=== PATIENT | female | born 1945 | race Caucasian/White ===

== ENCOUNTER → 2016-10-25 | Outpatient (CLI) | payer MEDICARE ==
--- NOTE | 2016-10-27 10:03 | MM ---
Reason for exam: screening (asymptomatic). Last mammogram was performed 1 year ago. History: Patient is postmenopausal. Family history of premenopausal breast cancer in mother at age 38. Took estrogen for 2 years beginning at age 56. Physical Findings: A clinical breast exam by your physician is recommended on an annual basis and results should be correlated with mammographic findings. MG 3D Screening Mammo W/Cad Bilateral CC and MLO view(s) were taken. Prior study comparison: September 03, 2014, bilateral MG screening mammo w CAD. August 29, 2013, bilateral MG screening mammo w CAD. There are scattered fibroglandular densities. No significant changes when compared with prior studies. ASSESSMENT: Benign, BI-RAD 2 RECOMMENDATION: Routine screening mammogram of both breasts in 1 year.
== END | disposition home or self-care (01) ==
LOC: RADMAMWWP 08:48
PROVIDERS: ATTEND Family Medicine
DX: Z12.31 Encounter for screening mammogram for malignant neoplasm of breast (principal)
CPT/HCPCS: 77063; G0202

== ENCOUNTER → 2018-03-09 | Outpatient (CLI) | payer MEDICARE ==
--- NOTE | 2018-03-12 07:54 | BD ---
EXAMINATION TYPE: Axial Bone Density DATE OF EXAM: 03/09/2018 COMPARISON: 02/14/2000 bone scan report. CLINICAL HISTORY: Postmenopausal female and osteopenia per order. Height: 62 IN Weight: 148 LBS FRAX RISK QUESTIONS: Family History (Parent hip fracture): YES MOTHER RISK FACTORS HISTORY OF: Surgery to Hip(EVITA): YES When: RT HIP 12/21 LEFT HIP 1999 Active: MINIMAL Postmenopausal woman: AGE 55 Take estrogen and/or progesterone medications: NOT NOW How long: AGE 55 - 56 MEDICATIONS: Thyroid Medications: YES Which medication: Synthroid How Lon + YEARS Osteoporosis Medications: NOT NOW Which medication: Fosamax How Long: APPROX AGE 55 - 63 Additional Medications: CALCIUM, VIT D, SYNTHROID, CHOLESTEROL MEDS, DIABETES MEDS, HIGH BLOOD PRESSU RE MEDS, EXAM MEASUREMENTS: Bone mineral densitometry was performed using the [employer]. Bone mineral density as measured about the Lumbar spine is: ----- L1-L4(G/cm2): 1.842 T Score Values are as follows: ----- L2: 6.3 ----- L3: 6.0 ----- L4: 4.4 ----- L1-L4: 5.5 Bone mineral density has: Increased 43.1% since study of: 02/14/2000 Bone mineral density about the R Wrist (g/cm2): 0.575 T Score values are as follows: -----Dist. R+U: -0.7 -----Prox. R+U: -1.0 -----Radius total: -1.6 Bone mineral density BASELINE IMPRESSION: Osteopenia (T Score between -2.5 and -1) in the right forearm. Bone density felt falsely elevated in the low back due to scoliosis and reactive sclerosis. There is slightly increased risk of fracture and the patient may be considered for treatment. Re-Screen 2-5 years. NOTE: T-SCORE=SD OF THE YOUNG ADULT MEAN.
--- NOTE | 2018-03-15 10:54 | MM ---
Reason for exam: screening (asymptomatic). Last mammogram was performed 1 year and 4 months ago. History: Patient is postmenopausal. Family history of premenopausal breast cancer in mother at age 38. Took estrogen for 2 years beginning at age 56. MG 3D Screening Mammo W/Cad Bilateral CC and MLO view(s) were taken. Prior study comparison: October 25, 2016, bilateral MG 3d screening mammo w/cad. October 13, 2015, bilateral MG 3d screening mammo w/cad. The breast tissue is heterogeneously dense. This may lower the sensitivity of mammography. Developing asymmetry left middle post depth upper outer quadrant. ASSESSMENT: Incomplete: need additional imaging evaluation, BI-RAD 0 RECOMMENDATION: Ultrasound of the left breast.
== END ==
LOC: RADMAMWWP 15:05
PROVIDERS: ATTEND Family Medicine
DX: Z12.31 Encounter for screening mammogram for malignant neoplasm of breast (principal); M85.831 Other specified disorders of bone density and structure, right forearm; N95.1 Menopausal and female climacteric states
CPT/HCPCS: 77063; 77067; 77080

== ENCOUNTER → 2018-03-22 | Outpatient (CLI) | payer MEDICARE ==
--- NOTE | 2018-03-22 14:49 | MM ---
Reason for exam: additional evaluation requested from abnormal screening. Last mammogram was performed less than 1 month ago. History: Patient is postmenopausal. Family history of premenopausal breast cancer in mother at age 38. Took estrogen for 2 years beginning at age 56. Physical Findings: Nurse did not find any significant physical abnormalities on exam. MG 3D Work Up W/Cad RT CC with magnification, LM with magnification, and LM view(s) were taken of the right breast. Prior study comparison: March 09, 2018, bilateral MG 3d screening mammo w/cad. October 25, 2016, bilateral MG 3d screening mammo w/cad. There are scattered fibroglandular densities. There are course heterogeneous right upper outer quadrant calcifications, 5 mm group that are new and a biopsy is recommended. A subtle 4 mm right upper outer quadrant focal asymmetry is noted and an ultrasound will be performed. ASSESSMENT: Incomplete: need additional imaging evaluation, BI-RAD 0 RECOMMENDATION: Ultrasound of the right breast.
--- NOTE | 2018-03-22 14:59 | USB ---
History: Patient is postmenopausal. Family history of premenopausal breast cancer in mother at age 38. Took estrogen for 2 years beginning at age 56. US Breast Workup Limited RT Right limited breast ultrasound including focal area of concern, retroareolar and axilla demonstrates No cystic or solid lesion seen. No suspicious sonographic findings. Right breast calcifications on the mammogram are suspicious and warrant biopsy. These results were verbally communicated with the patient and result sheet given to the patient on 03/22/18. ASSESSMENT: Suspicious, BI-RAD 4 RECOMMENDATION: Stereotactic core biopsy of the right breast. The calcifications seen on the mammogram. Called Dr. Blount with mammographic findings and has scheduled an appointment for the patient for 04/06/18 at 1:[address] Diaz. The right breast stereotactic biopsy is to be done on 04/10/18 at 8:00 am. PRELIMINARY REPORT CALLED AND FAXED TO DR. DIAZ ON 03/22/18.
== END | disposition home or self-care (01) ==
LOC: RADMAMWWP 09:29
PROVIDERS: ATTEND Family Medicine
DX: R92.8 Other abnormal and inconclusive findings on diagnostic imaging of breast (principal)
CPT/HCPCS: 77065; 76642; G0279; 77061

== ENCOUNTER → 2018-04-06 | Outpatient (CLI) | payer MEDICARE ==
[2018-04-06 13:29] VITALS: BP 138/84; PULSE 96; RESP 18; TEMP 97; BMI 25.7
--- NOTE | 2018-04-06 13:37 | P.GSHP ---
History of Present Illness H&P Date: 04/06/18 Chief Complaint: abnormal mammogram right breast Netta is a 73-year-old white female who on a routine mammogram performed on 03/09/2018 was noted to have a 5 mm group of calcifications in the right upper outer quadrant at middle depth breast. There was some focal asymmetry of the right upper outer quadrant as well. Ultrasound of this area did not reveal any cystic or solid lesions of concern and after diagnostic mammogram it was recommended that she undergo a right breast stereotactic core biopsy. The patient does not feel any lumps in her breasts. She has no nipple discharge or skin changes. She has no history of any infection and trauma to the breast. She has not had any breast biopsies or procedures on the breast in the past. Family history: mother: breast cancer at 32, at 82 not of cancer, also had uterine cancer 7 years later sister: lung cancer father: Mesothelioma secondary to asbestos exposure Hormonal history: Menarche:11 : 3, 3 children, breast fed: no, first at 21 menopause: Hysterectomy at 55 for pain but was still having periods /they took her ovaries as well BCP: 5 years hormones: 1 1/2 years Past Surgical History 1. IRINEO 2. gallbladder 3. appy 4. 4 hip replacements one on the left, 1 on the right 5. T&A Medical History: 1. HTN 2. diabetic 3. hypothyroid 4. high cholesterol 5. arthritis Social History: smoke: none alcohol: none drughs: none - Constitutional Constitutional: Reports sweats - EENT Eyes: denies blurred vision, denies pain Ears: bilateral: decreased hearing (wears hearing aids), deny: tinnitus Ears, nose, mouth and throat: Denies headache, Denies sore throat - Breasts Breasts: bilateral: as per HPI - Cardiovascular Cardiovascular: Denies chest pain, Denies shortness of breath - Respiratory Respiratory: Denies cough, Denies 7 - Gastrointestinal Gastrointestinal: Denies abdominal pain, Denies diarrhea, Denies nausea, Denies vomiting - Genitourinary (Female) Genitourinary: Reports kidney stones - Menstruation Menstruation: Reports post hysterectomy - Musculoskeletal Comment: arthritis, worst in her hips - Integumentary Integumentary: Denies pruritus, Denies rash - Neurological Neurological: Denies numbness, Denies weakness - Psychiatric Psychiatric: Reports anxiety, Reports depression - Endocrine Endocrine: Denies fatigue, Denies weight change - Hematologic/Lymphatic Comment: none - Allergic/Immunologic Allergic/Immunologic: Reports seasonal allergies Past Medical History Past Medical History: Diabetes Mellitus, Hypertension, Osteoarthritis (OA) Past Surgical History: Adenoidectomy, Hysterectomy, Joint Replacement Past Psychological History: Anxiety, Depression Medications and Allergies Home Medications Medication Instructions Recorded Confirmed Type Atorvastatin [Lipitor] 20 mg PO HS 03/23/18 04/06/18 History Calcium Carbonate/Vitamin D3 1 each PO DAILY 03/23/18 04/06/18 History [Calcium 500-Vit D3 200 Tablet] Cholecalciferol [Vitamin D3] 1,000 unit PO QAM 03/23/18 04/06/18 History Ferrous Sulfate [Iron] 325 mg PO WEEKLY 03/23/18 04/06/18 History Imipramine [Tofranil] 10 mg PO BID 03/23/18 04/06/18 History Levothyroxine Sodium [Synthroid] 88 mcg PO QAM 03/23/18 04/06/18 History Losartan Potassium [Cozaar] 50 mg PO QAM 03/23/18 04/06/18 History Ranitidine HCl [Zantac] 150 mg PO BID 03/23/18 04/06/18 History Venlafaxine HCl [Effexor] 75 mg PO BID 03/23/18 04/06/18 History metFORMIN HCL 1,000 mg PO HS 03/23/18 04/06/18 History metFORMIN HCL 500 mg PO QAM 03/23/18 04/06/18 History Allergies Allergy/AdvReac Type Severity Reaction Status Date / Time No Known Allergies Allergy Verified 04/06/18 13:03 Surgical - Exam BMI 25.7 - General well developed, well nourished, no distress - Eyes normal ocular movement - ENT no hearing loss, no congestion - Neck no masses, trachea midline - Respiratory normal respiratory effort, clear to auscultation - Cardiovascular Rhythm: regular Heart Sounds: normal: S1, S2 - Abdomen Abdomen: soft, non tender, no guarding, no rigid, no rebound - Integumentary normal turgor - Neurologic no disoriented, no combative - Musculoskeletal normal gait, normal posture - Psychiatric oriented to time, oriented to person, oriented to place, speech is normal, memory intact Breast examination: Right breast: Multi-positional exam no dominant masses or nodules of concern Right axilla: No adenopathy of concern Left breast: Multi-positional exam no dominant masses or nodules of concern Left axilla: No adenopathy of concern Results Mammogram and ultrasound reports reviewed Assessment and Plan Assessment: Impression: 1. Radiographic abnormality right breast, microcalcifications upper outer quadrant region questionable soft tissue area not seen on ultrasound 2. diabetic 3. hypothyroid 4. high cholesterol 5. arthritis 6. HTN Plan: 1. Serotactic core biopsy right breast lesion 2. Medical management of medical conditions Risks and benefits of procedure discussed with the patient and she wishes to proceed. Cc: Dr. Marcos Gardner in [place]
== END ==
LOC: WWCWWP 12:45
PROVIDERS: ATTEND Surgery
DX: Z53.9 Procedure and treatment not carried out, unspecified reason (principal)

== ENCOUNTER → 2018-04-10 | Day surgery (SDC) | payer MEDICARE ==
[2018-04-10 07:30] VITALS: RESP 16; BMI 25.7
[2018-04-10 08:58] VITALS: BP 145/83; PULSE 98; TEMP 98.7
--- NOTE | 2018-04-10 11:20 | P.OP ---
Date of Procedure: 04/10/18 Preoperative Diagnosis: Mammographic abnormality right breast Postoperative Diagnosis: Same Procedure(s) Performed: Right breast stereotactic core biopsy Anesthesia: local Surgeon: Dominique Diaz Estimated Blood Loss (ml): 0 Pathology: other (Breast tissue) Condition: stable Disposition: same day Indications for Procedure: Mammographic abnormality right breast Operative Findings: Microcalcifications in specimen Description of Procedure: Netta is a 73-year-old white female who on a recent mammogram was noted to have an area of microcalcifications in the upper outer quadrant area of the right breast. An ultrasound was performed which did not reveal any lesions and therefore stereotactic core biopsy was recommended. The risk and benefits of the procedure were discussed with the patient and she wished to proceed. The patient was taken to the stereo room and positioned on the lo-rad table. A CC from above approach was utilized. After the lesion was identified a stereo pair was obtained. The lesion was targeted. The cordinants were sent to the lo-rad table. The skin was prepped using Betadine. 1% lidocaine 10 mL with bicarbonate and 10 mL without bicarb was used to anesthetize the area of the skin and breast. A 9-gauge vacuum-assisted rotating core biopsy needle was used to obtain the samples. The needle was driven to the correct coordinates. Pre-fire films were obtained. The needle was then fired and post fire films were obtained. This indicated the needle was in the correct location. 12 core biopsies were obtained. Radiograph of the specimen revealed the microcalcifications of concern had been sampled. A secure marked top marker was placed. Radiograph revealed this was in the correct location. The specimen was sent for pathology. The patient tolerated the procedure in stable condition. The patient will follow with Dr. Murphy next week. If the patient has any questions or concerns she will call Dr. Murphy sooner.
--- NOTE | 2018-04-10 16:45 | MM ---
EXAMINATION TYPE: MG stereo VAD BX RT DATE OF EXAM: 04/10/2018 COMPARISON: Mammogram 03/22/2018 CLINICAL HISTORY: Abnormal mammogram TECHNIQUE: Stereotactic guided core biopsy of right breast. FINDINGS: The procedure was performed by surgery. Targeting was provided for surgery. Multiple images demonstrate biopsy of the targeted calcifications. Post procedure mammogram is obtained. Core marker is at the location of the previous calcifications. Specimen: Mammographic specimen demonstrates calcifications within the specimen. IMPRESSION: 1. Successful stereotactic core biopsy right breast calcifications. Recommendations: 1. Recommendations are pending pathology results. Pathology Results: Benign RIGHT BREAST, STEREOTACTIC CORE BIOPSY: Nodular fat necrosis with calcifications , scar and inflammation. Negative for malignancy. Recommendation Follow up mammogram of the right breast in 6 months. TONGD
== END | disposition home or self-care (01) ==
LOC: RADMAMWWP 07:10
PROVIDERS: ATTEND Surgery
DX: R92.8 Other abnormal and inconclusive findings on diagnostic imaging of breast (principal); N61.0 Mastitis without abscess; N64.1 Fat necrosis of breast; L90.5 Scar conditions and fibrosis of skin
CPT/HCPCS: 88305; 19081; A4648; J2001

== ENCOUNTER → 2018-04-19 | Outpatient (CLI) | payer MEDICARE ==
[2018-04-19 14:04] VITALS: BP 145/82; PULSE 76; RESP 20; TEMP 98.5; BMI 25.7
--- NOTE | 2018-04-19 14:04 | P.PN ---
Subjective Progress Note Date: 04/19/18 Principal diagnosis: Status post right breast stereotactic core biopsy 2519 Netta is a 73-year-old white female status post right breast are detected core biopsy 2519. Pathology revealed nodular fat necrosis with calcifications , scar and inflammation. Negative for malignancy. The patient has no complaints at this time. Objective - Vital Signs Vital signs: Intake & Output 04/18/18 04/19/18 04/19/18 18:59 06:59 18:59 Weight 68.039 kg - Constitutional General appearance: Present: average body habitus - EENT Eyes: Present: EOMI ENT: Present: hearing grossly normal - Neck Neck: Present: normal ROM - Respiratory Respiratory: bilateral: CTA - Cardiovascular Rhythm: regular Heart sounds: normal: S1, S2 - Musculoskeletal Musculoskeletal: Present: gait normal - Psychiatric Psychiatric: Present: A&O x's 3, appropriate affect - Additional findings Additional findings: Breast examination: Right breast : Core biopsy site clean and dry no evidence of any infection Assessment and Plan Assessment: Impression: 1. Pathology results benign from right breast stereotactic core biopsy 2. Area samples felt to be concordant with radiographic abnormality 3. Patient without complaints Plan: 1. Repeat right breast mammogram 6 months time with physician exam at that time 2. If patient has any questions or concerns sooner be happy to see her sooner CC: Brandyn Durand
== END | disposition home or self-care (01) ==
LOC: WWCWWP 13:18
PROVIDERS: ATTEND Surgery
DX: Z53.9 Procedure and treatment not carried out, unspecified reason (principal)

== ENCOUNTER → 2018-09-25 | Outpatient (CLI) | payer MEDICARE ==
--- NOTE | 2018-09-25 14:09 | MM ---
Reason for exam: follow-up at short interval from prior study. Last mammogram was performed 6 months ago. History: Patient is postmenopausal. Family history of premenopausal breast cancer in mother at age 38. Benign MG stereo VAD BX RT of the right breast, April 10, 2018. Took estrogen for 2 years beginning at age 56. Physical Findings: Nurse did not find any significant physical abnormalities on exam. MG 3D Diag Mammo W/Cad RT CC, MLO, and CCRL view(s) were taken of the right breast. Prior study comparison: March 22, 2018, right breast MG 3d work up w/cad RT. March 09, 2018, bilateral MG 3d screening mammo w/cad. There are scattered fibroglandular densities. Biopsy site upper outer quadrant right breast is larger focal asymmetry now, probably evolving scar. Additional 6 month follow up recommended. These results were verbally communicated with the patient and result sheet given to the patient on 09/25/18. ASSESSMENT: Probably benign, BI-RAD 3 RECOMMENDATION: Follow-up diagnostic mammogram of both breasts in 6 months. Back on schedule for March 2019. DOMENICO
== END | disposition home or self-care (01) ==
LOC: RADMAMWWP 12:34
PROVIDERS: ATTEND Surgery
DX: R92.8 Other abnormal and inconclusive findings on diagnostic imaging of breast (principal)
CPT/HCPCS: 77065; G0279; 77061

== ENCOUNTER → 2018-09-28 | Outpatient (CLI) | payer MEDICARE ==
--- NOTE | 2018-09-28 11:11 | P.PN ---
Subjective Progress Note Date: 09/28/18 Netta is a 73-year-old white female who on a routine mammogram performed on 03/09/2018 was noted to have a 5 mm group of calcifications in the right upper outer quadrant at middle depth breast. There was some focal asymmetry of the right upper outer quadrant as well. Ultrasound of this area did not reveal any cystic or solid lesions of concern and after diagnostic mammogram it was recommended that she undergo a right breast stereotactic core biopsy. The patient does not feel any lumps in her breasts. She has no nipple discharge or skin changes. She has no history of any infection and trauma to the breast. She has not had any breast biopsies or procedures on the breast in the past. She underwent a stereotactic core biopsy and 2519. Pathology revealed nodular fat necrosis with calcifications, scarring and inflammation. Negative for malignancy. The patient has not felt anything of concern in her breast since the biopsy. She had her most recent right breast mammogram on [id number]. This revealed biopsy site upper outer quadrant is larger focal asymmetry now, probably involving scar. However, the films were reviewed with Dr. Barcenas and it appears that this is a resolving hematoma. Additional six-month follow-up was recommended. Family history: mother: breast cancer at 32, at 82 not of cancer, also had uterine cancer 7 years later sister: lung cancer father: Mesothelioma secondary to asbestos exposure Hormonal history: Menarche:11 : 3, 3 children, breast fed: no, first at 21 menopause: Hysterectomy at 55 for pain but was still having periods /they took her ovaries as well BCP: 5 years hormones: 1 1/2 years Past Surgical History 1. IRINEO 2. gallbladder 3. appy 4. 4 hip replacements one on the left, 1 on the right 5. T&A Medical History: 1. HTN 2. diabetic 3. hypothyroid 4. high cholesterol 5. arthritis Social History: smoke: none alcohol: none drughs: none - Constitutional Constitutional: Reports sweats - EENT Eyes: denies blurred vision, denies pain Ears: bilateral: decreased hearing (wears hearing aids), deny: tinnitus Ears, nose, mouth and throat: Denies headache, Denies sore throat - Breasts Breasts: bilateral: as per HPI - Cardiovascular Cardiovascular: Denies chest pain, Denies shortness of breath - Respiratory Respiratory: Denies cough, Denies 7 - Gastrointestinal Gastrointestinal: Denies abdominal pain, Denies diarrhea, Denies nausea, Denies vomiting - Genitourinary (Female) Genitourinary: Reports kidney stones - Menstruation Menstruation: Reports post hysterectomy - Musculoskeletal Comment: arthritis, worst in her hips - Integumentary Integumentary: Denies pruritus, Denies rash - Neurological Neurological: Denies numbness, Denies weakness - Psychiatric Psychiatric: Reports anxiety, Reports depression - Endocrine Endocrine: Denies fatigue, Denies weight change - Hematologic/Lymphatic Comment: none - Allergic/Immunologic Allergic/Immunologic: Reports seasonal allergies Objective - Vital Signs Vital signs: Vital Signs Temp 98.4 F 09/28/18 10:54 Pulse 97 09/28/18 10:54 Resp 18 09/28/18 10:54 BP 125/73 09/28/18 10:54 Pulse Ox 98 09/28/18 10:54 Intake & Output 09/27/18 09/28/18 09/28/18 18:59 06:59 18:59 Weight 70.307 kg - Exam BMI 26.6 - Constitutional General appearance: Present: average body habitus - EENT Eyes: Present: EOMI ENT: Present: hearing grossly normal - Neck Neck: Present: normal ROM - Respiratory Respiratory: bilateral: CTA - Cardiovascular Rhythm: regular - Gastrointestinal General gastrointestinal: Present: soft - Integumentary Integumentary: Present: normal turgor - Musculoskeletal Musculoskeletal Comment(s): uses a cane, bilateral hip replacement - Psychiatric Psychiatric: Present: A&O x's 3, appropriate affect, intact judgment & insight - Additional findings Additional findings: Breast examination: Right breast: Multi-positional exam no dominant masses or nodules of concern Right axilla: No adenopathy of concern Left breast: Multiple positional exam no dominant masses or nodules of concern Left axilla: No adenopathy of concern Assessment and Plan Assessment: Impression: 1. HTN 2. diabetic 3. hypothyroid 4. high cholesterol 5. arthritis 6. Fat necrosis and core biopsy of the breast 7. Fibrocystic changes 8. mother breast cancer in her 30's The patient has a family history of mother with breast cancer in her 30s, we've discussed genetic testing however she wishes to just have close surveillance at this time. Plan: 1. Repeat bilateral mammogram in 6 months time with physician exam at that time 2. Probable resolving hematoma at site of stereotactic core biopsy 3. Medical management of medical conditions cc: Dr. Marcos Blount ([place])
== END ==
DX: Z53.9 Procedure and treatment not carried out, unspecified reason (principal)

== ENCOUNTER → 2019-04-01 | Outpatient (CLI) | payer MEDICARE ==
--- NOTE | 2019-04-01 11:39 | MM ---
Reason for exam: follow-up at short interval from prior study. Last mammogram was performed 6 months ago. History: Patient is postmenopausal. Family history of premenopausal breast cancer in mother at age 38. Benign MG stereo VAD BX RT of the right breast, April 10, 2018. Took estrogen for 2 years beginning at age 56. Physical Findings: Nurse did not find any significant physical abnormalities on exam. MG 3D Diag Mammo W/Cad EVITA Bilateral CC and MLO view(s) were taken. Prior study comparison: September 25, 2018, right breast MG 3d diag mammo w/cad RT. March 22, 2018, right breast MG 3d work up w/cad RT. There are scattered fibroglandular densities. Benign appearing bilateral calcifications. No suspicious abnormality. Post biopsy change right upper outer quadrant. No significant new findings when compared with previous films. These results were verbally communicated with the patient and result sheet given to the patient on 04/01/19. ASSESSMENT: Benign, BI-RAD 2 RECOMMENDATION: Routine screening mammogram of both breasts in 1 year.
== END | disposition home or self-care (01) ==
LOC: RADMAMWWP 10:00
PROVIDERS: ATTEND Surgery
DX: R92.8 Other abnormal and inconclusive findings on diagnostic imaging of breast (principal)
CPT/HCPCS: 77066; G0279; 77062

== ENCOUNTER → 2019-04-05 | Outpatient (CLI) | payer MEDICARE ==
[2019-04-05 11:56] VITALS: BP 137/89; PULSE 105; RESP 16; TEMP 98.2
--- NOTE | 2019-04-05 12:19 | P.PN ---
Subjective Progress Note Date: 04/05/19 Principal diagnosis: fat necrosis of the right breast/surveillence Netta is a 73-year-old white female who on a routine mammogram performed on 03/09/2018 was noted to have a 5 mm group of calcifications in the right upper outer quadrant at middle depth breast. There was some focal asymmetry of the right upper outer quadrant as well. Ultrasound of this area did not reveal any cystic or solid lesions of concern and after diagnostic mammogram it was recommended that she undergo a right breast stereotactic core biopsy. The patient does not feel any lumps in her breasts. She has no nipple discharge or skin changes. She has no history of any infection and trauma to the breast. She has not had any breast biopsies or procedures on the breast in the past. She underwent a stereotactic core biopsy on 429. Pathology revealed nodular fat necrosis with calcifications, scarring and inflammation. Negative for malignancy. The patient had not felt anything of concern in her breast[place] [address]. This revealed biopsy site upper outer quadrant with a focal asymmetry, probably involving scar. The films were reviewed with Dr. Barcenas and it appeared that this was a resolving hematoma. Additional six-month follow-up was recommended. [place] [address] this was 3-D. No suspicious abnormalities were noted. Post biopsy changes in the right upper outer quadrant were identified. This was felt to be benign BIRADS 2 and repeat bilateral mammogram in 1 year is recommended. She has no complaints related to her breast at this time. No lumps masses or nodules in her breast of concern. Family history: mother: breast cancer at 32, at 82 not of cancer, also had uterine cancer 7 years later sister: lung cancer father: Mesothelioma secondary to asbestos exposure Hormonal history: Menarche:11 : 3, 3 children, breast fed: no, first at 21 menopause: Hysterectomy at 55 for pain but was still having periods /they took her ovaries as well BCP: 5 years hormones: 1 1/2 years Past Surgical History 1. IRINEO 2. gallbladder 3. appy 4. 4 hip replacements one on the left, 1 on the right 5. T&A 6. bilateral cataract surgery Medical History: 1. HTN 2. diabetic 3. hypothyroid 4. high cholesterol 5. arthritis Social History: smoke: none alcohol: none drugs: none - Constitutional Constitutional: Reports sweats - EENT Eyes: denies blurred vision, denies pain Ears: bilateral: decreased hearing (wears hearing aids), deny: tinnitus Ears, nose, mouth and throat: Denies headache, Denies sore throat - Breasts Breasts: bilateral: as per HPI - Cardiovascular Cardiovascular: Denies chest pain, Denies shortness of breath - Respiratory Respiratory: Denies cough - Gastrointestinal Gastrointestinal: Denies abdominal pain, Denies diarrhea, Denies nausea, Denies vomiting - Genitourinary (Female) Genitourinary: Reports kidney stones 10 years ago - Menstruation Menstruation: Reports post hysterectomy - Musculoskeletal Comment: arthritis, worst in her hips - Integumentary Integumentary: Denies pruritus, Denies rash - Neurological Neurological: Denies numbness, Denies weakness - Psychiatric Psychiatric: Reports anxiet - Endocrine Endocrine: Denies fatigue, Denies weight change - Hematologic/Lymphatic Comment: none - Allergic/Immunologic Objective - Vital Signs Vital signs: Vital Signs Temp 98.2 F 04/05/19 11:54 Pulse 105 H 04/05/19 11:54 Resp 16 04/05/19 11:54 BP 137/89 04/05/19 11:54 Pulse Ox 97 04/05/19 11:54 Intake & Output 04/04/19 04/05/19 04/05/19 18:59 06:59 18:59 Weight 70.307 kg - Exam BMI 26.6 - Constitutional General appearance: Present: average body habitus - EENT Eyes: Present: EOMI ENT: Present: hearing grossly normal - Neck Details: no adenopathy Neck: Present: normal ROM - Respiratory Respiratory: bilateral: CTA - Cardiovascular Rhythm: regular Heart sounds: normal: S1, S2 - Gastrointestinal Gastrointestinal Comment(s): no guarding or rebound General gastrointestinal: Present: normal bowel sounds, soft - Integumentary Integumentary: Present: normal turgor - Musculoskeletal Musculoskeletal: Present: gait normal - Psychiatric Psychiatric: Present: A&O x's 3, appropriate affect, intact judgment & insight - Additional findings Additional findings: breast exam: BRA 40C ptosis grade 3 inspection: no skin changes of concern right breast larger than left breast no nipple inversion Palpation: Right breast: Multi-positional exam no dominant masses or nodules of concern, fibrocystic changes, right breast larger than left breast Right axilla: No adenopathy of concern Left breast: Multi-positional exam no dominant masses or nodules of concern, fibrocystic changes, Left axilla: No adenopathy of concern Assessment and Plan Assessment: Impression: 1. Fibrocystic breast changes 2. Asymmetry of the breast 3. Hypertension 4. Diabetes 5. Arthritis Plan: 1. Repeat bilateral mammogram and physician exam in 1 year 2. Patient to call sooner if any questions of concern Cc: Dr. Blount encounter 15 minutes, > 50% of time in planning and counselling Time with Patient: Less than 30
== END | disposition home or self-care (01) ==
LOC: WWCWWP 11:18
PROVIDERS: ATTEND Surgery
DX: Z53.9 Procedure and treatment not carried out, unspecified reason (principal)

== ENCOUNTER → 2020-04-03 | Outpatient (CLI) | payer MEDICARE ==
--- NOTE | 2020-04-03 13:43 | MM ---
Reason for exam: screening (asymptomatic). Last mammogram was performed 1 year ago. History: Patient is postmenopausal. Family history of premenopausal breast cancer in mother at age 38. Benign MG stereo VAD BX RT of the right breast, April 10, 2018. Took estrogen for 2 years beginning at age 56. Physical Findings: A clinical breast exam by your physician is recommended on an annual basis and results should be correlated with mammographic findings. MG 3D Screening Mammo W/Cad Bilateral CC and MLO view(s) were taken. Prior study comparison: April 01, 2019, bilateral MG 3d diag mammo w/cad [facility]. September 25, 2018, right breast MG 3d diag mammo w/cad RT. There are scattered fibroglandular densities. Finding #1: There is a 10 mm irregular mass in the posterior, middle position of the right breast at clip on CC image only. Finding #2: There are typically benign round calcifications in both breasts. Previous mammotome biopsy in the right breast. There is a chronic nodularity in the left breast. New finding, increase in size, and more defined since April 01, 2019 and September 25, 2018. ASSESSMENT: Incomplete: need additional imaging evaluation, BI-RAD 0 RECOMMENDATION: Ultrasound of the right breast. [facility] will attempt to contact patient to return for ultrasound.
== END | disposition home or self-care (01) ==
LOC: RADMAMWWP 10:08
PROVIDERS: ATTEND Surgery
DX: Z12.31 Encounter for screening mammogram for malignant neoplasm of breast (principal)
CPT/HCPCS: 77063; 77067

== ENCOUNTER → 2020-04-09 | Outpatient (CLI) | payer MEDICARE ==
[2020-04-09 11:14] VITALS: BP 166/94; PULSE 108; RESP 20; TEMP 98.5
--- NOTE | 2020-04-09 11:16 | P.PN ---
Subjective Progress Note Date: 04/09/20 Principal diagnosis: abnormal right breast mammogram fat necrosis of the right breast/surveillence Netta is a 75-year-old white female who on a routine mammogram performed on 03/09/2018 was noted to have a 5 mm group of calcifications in the right upper outer quadrant at middle depth breast. There was some focal asymmetry of the right upper outer quadrant as well. Ultrasound of this area did not reveal any cystic or solid lesions of concern and after diagnostic mammogram it was recommended that she undergo a right breast stereotactic core biopsy. The patient did not feel any lumps in her breasts. She had no nipple discharge or skin changes. She had no history of any infection or trauma to the breast. She had not had any breast biopsies or procedures on the breast in the past. She underwent a stereotactic core biopsy on 432. Pathology revealed nodular fat necrosis with calcifications, scarring and inflammation. Negative for malignancy. The patient had not felt anything of concern in her breast. [place] [address]. This revealed biopsy site upper outer quadrant with a focal asymmetry, probably involving scar. The films were reviewed with Dr. Barcenas and it appeared that this was a resolving hematoma. Additional six-month follow-up was recommended. [place] [address] this was 3-D. No suspicious abnormalities were noted. Post biopsy changes in the right upper outer quadrant were identified. This was felt to be benign BIRADS 2 and repeat bilateral mammogram in 1 year is recommended. She has no complaints related to her breast at this time. No lumps masses or nodules in her breast of concern. The patient at this time denies any lumps masses or nodules in her breast. She is not complaining of any pain in her breast. She does not complain of any nipple discharge or skin changes. She had a bilateral 3-D mammogram performed on [id number]. This revealed a 10 mm irregular mass in the posterior middle position of the right breast at the clip additionally there are benign round calcifications in both breasts and chronic nodularity in the left breast. A new finding was increase in size and more defined area in the right breast of the lesion as stated since March 2019. Ultrasound of the right breast was recommended. This appears to be an area of prior hematoma. Family history: mother: breast cancer at 32, at 82 not of cancer, also had uterine cancer 7 years later sister: lung cancer father: Mesothelioma secondary to asbestos exposure Hormonal history: Menarche:11 : 3, 3 children, breast fed: no, first at 21 menopause: Hysterectomy at 55 for pain but was still having periods /they took her ovaries as well BCP: 5 years hormones: 1 1/2 years Past Surgical History 1. IRINEO 2. gallbladder 3. appy 4. 4 hip replacements one on the left, 1 on the right 5. T&A 6. bilateral cataract surgery Medical History: 1. HTN 2. diabetic 3. hypothyroid 4. high cholesterol 5. arthritis Social History: smoke: none alcohol: none drugs: none - Constitutional Constitutional: Reports sweats - EENT Eyes: denies blurred vision, denies pain Ears: bilateral: decreased hearing (wears hearing aids), deny: tinnitus Ears, nose, mouth and throat: Denies headache, Denies sore throat - Breasts Breasts: bilateral: as per HPI - Cardiovascular Cardiovascular: Denies chest pain, Denies shortness of breath - Respiratory Respiratory: Denies cough - Gastrointestinal Gastrointestinal: Denies abdominal pain, Denies diarrhea, Denies nausea, Denies vomiting - Genitourinary (Female) Genitourinary: Reports kidney stones 10 years ago - Menstruation Menstruation: Reports post hysterectomy - Musculoskeletal Comment: arthritis, worst in her hips - Integumentary Integumentary: Denies pruritus, Denies rash - Neurological Neurological: Denies numbness, Denies weakness - Psychiatric Psychiatric: Reports anxiet - Endocrine Endocrine: Denies fatigue, Denies weight change - Hematologic/Lymphatic Comment: none - Allergic/Immunologic: seasonal allergies Objective - Exam BMI 42C - Constitutional General appearance: Present: average body habitus - EENT Eyes: Present: EOMI ENT: Present: hearing grossly normal - Neck Neck: Present: normal ROM - Respiratory Respiratory: bilateral: CTA - Cardiovascular Rhythm: regular Heart sounds: normal: S1, S2 - Gastrointestinal General gastrointestinal: Present: normal bowel sounds, soft - Integumentary Integumentary: Present: normal turgor - Musculoskeletal Musculoskeletal Comment(s): uses a cane to walk, hip replacement 3 years ago - Psychiatric Psychiatric: Present: A&O x's 3, appropriate affect, intact judgment & insight - Additional findings Additional findings: breast exam: BRA: 42C inspection: bilateral grade 3 ptosis Palpation: Breasts: Slightly larger than left breast, multiple positional exam fibrocystic changes no dominant masses or nodules of concern Right axilla: No adenopathy of concern Left breast: Multiple positional exam fibrocystic changes, no dominant masses or nodules of concern Left axilla: No adenopathy of concern Assessment and Plan Assessment: Impression: 1. HTN 2. diabetic 3. hypothyroid 4. high cholesterol 5. arthritis 6. Fibrocystic breast changes 7. Prior right breast biopsy benign/questionable hematoma at change at the site ultrasound recommended Plan: 1. Ultrasound right breast depending on results of this further recommendation to follow up 2. Follow-up after completion of workup with the ultrasound in the right at this time; there is no palpable change in the right breast if the radiographic studies are negative would do a repeat mammogram and ultrasound in 6 months with physician exam at that time 3. If a biopsy is recommended patient will see us after results of the biopsy Cc: encounter 15 minutes, time spent in reviewing medical records, physical examination, and counseling
== END | disposition home or self-care (01) ==
LOC: WWCWWP 10:37
PROVIDERS: ATTEND Surgery
DX: Z53.9 Procedure and treatment not carried out, unspecified reason (principal)

== ENCOUNTER → 2020-04-09 | Outpatient (CLI) | payer MEDICARE ==
--- NOTE | 2020-04-10 10:43 | USB ---
Reason for exam: additional evaluation requested from abnormal screening. History: Patient is postmenopausal. Family history of premenopausal breast cancer in mother at age 38. Benign MG stereo VAD BX RT of the right breast, April 10, 2018. Took estrogen for 2 years beginning at age 56. Physical Findings: Nurse did not find any significant physical abnormalities on exam. US Breast Workup Limited RT Right limited breast ultrasound including focal area of concern, retroareolar and axilla demonstrates a 1.1 x 0.7 x 0.9cm irregular, solid lesion at 12 o'clock. These results were verbally communicated with the patient and result sheet given to the patient on 04/09/20. ASSESSMENT: Suspicious, BI-RAD 4 RECOMMENDATION: Surgical consultation and ultrasound core biopsy of the right breast. (12 o'clock positioned) Called office with mammographic findings and has scheduled an appointment for the patient for 05/01/20 at 3:[address] Diaz. Biopsy scheduled for 04/24/20 at 10:30. PRELIMINARY REPORT CALLED AND FAXED TO DR. DIAZ ON 04/10/20.
== END | disposition home or self-care (01) ==
LOC: RADUSWWP 11:18
PROVIDERS: ATTEND Surgery
DX: R92.8 Other abnormal and inconclusive findings on diagnostic imaging of breast (principal)

== ENCOUNTER → 2020-04-24 | Day surgery (SDC) | payer MEDICARE ==
[2020-04-24 10:45] VITALS: RESP 16
[2020-04-24 11:45] VITALS: BP 160/101; PULSE 96; TEMP 98.3
--- NOTE | 2020-04-24 12:23 | USB ---
EXAMINATION TYPE: US biopsy breast VAD RT DATE OF EXAM: 04/24/2020 CLINICAL HISTORY: R92.8 Abnormal Mammogram. Abnormal ultrasound TECHNIQUE: Ultrasound guided vaccuum assisted core biopsy of right breast. COMPARISON: NONE FINDINGS: The ultrasound guided core biopsy procedure was explained to the patient. The risks, benefits, alternatives were discussed. An informed consent was then obtained. Timeout was performed. The patient was placed in supine positioning for imaging and for the procedure. The overlying skin was prepped with betadine and sterilely draped in usual sterile fashion. Lidocaine 1% was used as anesthetic into the skin and deeper breast tissue up to area of concern in the breast. A small skin shira was made with surgical scalpel. Under ultrasound guidance, a 12-gauge vacuum assisted biopsy device was used to obtain 6 core samples. A biopsy clip was left in lesion. Wing clip was utilized. This appears to be just distal to the biopsy site on ultrasound placement and subsequent mammogram. During placement of the surgical clip a small hematoma may have been evolving. Good hemostasis was obtained with direct pressure. Significant hematoma on the post procedure mammogram is not evident. Discharge instructions were discussed with the patient. The patient will follow up with the referring physician for results. Postprocedure mammogram: The patient was transferred to mammography for physician ordered post procedure mammogram for clip placement verification. The patient tolerated the procedure well. The patient was discharged to home in stable condition. IMPRESSION: 1. Successful ultrasound guided biopsy right breast. Recommendations: 1. Recommendations are pending pathology results Pathology Results: Benign RIGHT BREAST, 12:00 POSITION, CORE BIOPSY: Benign breast tissue with hemorrhage and collagenous fibrosis. Recommendation Follow up mammogram of the right breast in 6 months. DOMENICO
--- NOTE | 2020-04-24 13:48 | MM ---
Reason for exam: additional evaluation requested from abnormal screening. Last mammogram was performed 1 month ago. History: Patient is postmenopausal. Family history of premenopausal breast cancer in mother at age 38. Benign MG stereo VAD BX RT of the right breast, April 10, 2018. Took estrogen for 2 years beginning at age 56. MG Diagnostic Mammo RT Wo CAD CC and LM view(s) were taken of the right breast. Prior study comparison: April 03, 2020, bilateral MG 3d screening mammo w/cad. April 01, 2019, bilateral MG 3d diag mammo w/cad [facility]. ASSESSMENT: Post procedure mammogram for marker placement RECOMMENDATION: Ultrasound of the right breast in 6 months. Manage patient on a clinical basis.
== END ==
LOC: RADUSWWP 09:36
PROVIDERS: ATTEND Surgery
DX: N60.31 Fibrosclerosis of right breast (principal); N64.59 Other signs and symptoms in breast
CPT/HCPCS: 88305; 77065; 19083; A4648; J2001

== ENCOUNTER → 2020-05-01 | Outpatient (CLI) | payer MEDICARE ==
--- NOTE | 2020-05-01 16:03 | P.PN ---
Subjective Progress Note Date: 05/01/20 Principal diagnosis: Core biopsy results right breast/hemorrhage/collagenous fibrosis/benign breast tissue Netta is a 75 -year-old white female who underwent an ultrasound-guided core biopsy on . Pathology revealed benign breast tissue with hemorrhage and collagenous fibrosis. The patient had undergone a right breast mammogram postprocedure for marker placement. The marker appeared to be at the site of previous stereo biopsy. The pathology is felt to be benign and concordant with changes related to the prior stereo biopsy. The prior stereo biopsy was done on 2518. Pathology revealed nodular fat necrosis with calcifications, scarring, and inflammation. It was negative for malignancy. The patient tolerated the ultrasound core biopsy with no difficulty. The pathology on the ultrasound core biopsy is felt to be benign and concordant in view of the fact that this appears to be at the site of the prior stereo biopsy. Family history: Mother: Breast cancer in her 30s father: Mesothelioma Physical examination: Lungs: Clear Heart: Regular rate and rhythm Right breast biopsy site clean and dry, mild ecchymosis, small hematoma Impression: 1. Ultrasound abnormality status post core biopsy which is benign and felt to be concordant in view of the fact that this appears to be at the site of prior stereo biopsy. This was reviewed with radiology. Plan: 1. Repeat right breast mammogram and ultrasound in 6 months Cc: Dr. Blount encounter 15 minutes, time spent in reviewing radiographic with radiology, physical examination, and counseling. Objective - Vital Signs Vital signs: Vital Signs Temp 98.1 F 05/01/20 15:29 Pulse 104 H 05/01/20 15:29 Resp 18 05/01/20 15:29 BP 166/93 05/01/20 15:29 Pulse Ox 97 05/01/20 15:29 Intake & Output 04/30/20 05/01/20 05/01/20 18:59 06:59 18:59 Weight 71.214 kg
== END | disposition home or self-care (01) ==
DX: R92.8 Other abnormal and inconclusive findings on diagnostic imaging of breast (principal)

== ENCOUNTER → 2020-10-26 | Outpatient (CLI) | payer MEDICARE ==
--- NOTE | 2020-10-27 07:56 | MM ---
Reason for exam: follow-up at short interval from prior study. Last mammogram was performed 6 months ago. History: Patient is postmenopausal. Family history of premenopausal breast cancer in mother at age 38. Benign US biopsy breast VAD RT of the right breast, April 24, 2020. Benign MG stereo VAD BX RT of the right breast, April 10, 2018. Took estrogen for 2 years beginning at age 56. Physical Findings: Nurse did not find any significant physical abnormalities on exam. MG 3D Diag Mammo W/Cad RT CC and MLO view(s) were taken of the right breast. Prior study comparison: April 24, 2020, right breast MG diagnostic mammo RT wo CAD. April 03, 2020, bilateral MG 3d screening mammo w/cad. The breast tissue is heterogeneously dense. This may lower the sensitivity of mammography. Stable density upper outer quadrant right breast which has been sampled previously. These results were verbally communicated with the patient and result sheet given to the patient on 10/26/20. ASSESSMENT: Incomplete: need additional imaging evaluation, BI-RAD 0 RECOMMENDATION: Ultrasound of the right breast.
--- NOTE | 2020-10-27 07:58 | USB ---
Reason for exam: additional evaluation requested from abnormal screening. History: Patient is postmenopausal. Family history of premenopausal breast cancer in mother at age 38. Benign US biopsy breast VAD RT of the right breast, April 24, 2020. Benign MG stereo VAD BX RT of the right breast, April 10, 2018. Took estrogen for 2 years beginning at age 56. US Breast Limited RT Right limited breast ultrasound including focal area of concern, retroareolar and axilla demonstrates a 7 x 4 x 4mm hypoechoic lesion at 12 o'clock, area has been previously sampled. These results were verbally communicated with the patient and result sheet given to the patient on 10/26/20. ASSESSMENT: Probably benign, BI-RAD 3 RECOMMENDATION: Follow-up diagnostic mammogram of both breasts in 6 months. Ultrasound of the right breast in 6 months.
== END | disposition home or self-care (01) ==
LOC: RADMAMWWP 13:38
PROVIDERS: ATTEND Surgery
DX: R92.2 Inconclusive mammogram (principal); Z78.0 Asymptomatic menopausal state; Z80.3 Family history of malignant neoplasm of breast; N64.89 Other specified disorders of breast
CPT/HCPCS: 77065; 76642; G0279; 77061

== ENCOUNTER → 2020-10-30 | Outpatient (CLI) | payer MEDICARE ==
[2020-10-30 10:42] VITALS: BP 131/78; PULSE 62; RESP 16; TEMP 98.3
--- NOTE | 2020-10-30 11:27 | P.PN ---
Subjective Progress Note Date: 10/30/20 Principal diagnosis: mammographic change right breast/ biopsy 6 months ago Netta is a 75-year-old white female status post ultrasound and stereotactic core biopsy of the right breast in the past. Both of these have been benign. The most recent biopsy was in ultrasound-guided core biopsy of the right breast and 12113. Pathology revealed benign breast tissue with hemorrhage and collagenous fibrosis. This was felt to be benign and concordant. Her last bilateral mammogram was on 120 921 no lesions of concern were noted in the left breast. Ultrasound of the right breast was performed which led to the core biopsy. She comes today for repeat 6 month mammogram and ultrasound of the right breast. This was performed in a2321. On the mammogram is stable density in the upper-outer quadrant which had seen previously been sampled was noted. An ultrasound was recommended. The ultrasound was felt to be probably benign, BIRADS 3. Follow-up diagnostic mammogram of both breasts in 6 months with an ultrasound of the right breast was recommended. The patient does not feel any new lumps masses or nodules of concern in either breast. Family history: mother: breast cancer at 32, at 82 not of cancer, also had uterine cancer 7 years later sister: lung cancer father: Mesothelioma secondary to asbestos exposure Hormonal history: Menarche:11 : 3, 3 children, breast fed: no, first at 21 menopause: Hysterectomy at 55 for pain but was still having periods /they took her ovaries as well BCP: 5 years hormones: 1 1/2 years Past Surgical History 1. IRINEO 2. gallbladder 3. appy 4. 4 hip replacements one on the left, 1 on the right 5. T&A 6. core biopsy of hte right breast Medical History: 1. HTN 2. diabetic 3. hypothyroid 4. high cholesterol 5. arthritis Social History: smoke: none alcohol: none drughs: none - Constitutional Constitutional: Reports sweats - EENT Eyes: denies blurred vision, denies pain Ears: bilateral: decreased hearing (wears hearing aids), deny: tinnitus Ears, nose, mouth and throat: Denies headache, Denies sore throat - Breasts Breasts: bilateral: as per HPI - Cardiovascular Cardiovascular: Denies chest pain, Denies shortness of breath - Respiratory Respiratory: Denies cough - Gastrointestinal Gastrointestinal: Denies abdominal pain, Denies diarrhea, Denies nausea, Denies vomiting - Genitourinary (Female) Genitourinary: Reports kidney stones - Menstruation Menstruation: Reports post hysterectomy - Musculoskeletal Comment: arthritis, worst in her hips; torn tendon in her left shoulder - Integumentary Integumentary: Denies pruritus, Denies rash - Neurological Neurological: Denies numbness, Denies weakness - Psychiatric Psychiatric: Reports anxiety, Reports depression - Endocrine Endocrine: Denies fatigue, Denies weight change - Hematologic/Lymphatic Comment: none - Allergic/Immunologic Allergic/Immunologic: Reports seasonal allergies Objective - Vital Signs Vital signs: Vital Signs Temp 98.3 F 10/30/20 10:39 Pulse 62 10/30/20 10:39 Resp 16 10/30/20 10:39 BP 131/78 10/30/20 10:39 Pulse Ox 95 10/30/20 10:39 Intake & Output 10/29/20 10/30/20 10/30/20 18:59 06:59 18:59 Weight 72.575 kg - Constitutional General appearance: Present: cooperative - EENT Eyes: Present: EOMI ENT: Present: hearing grossly normal - Neck Neck: Present: normal ROM - Respiratory Respiratory: bilateral: CTA - Cardiovascular Rhythm: regular Heart sounds: normal: S1, S2 - Gastrointestinal General gastrointestinal: Present: soft - Integumentary Integumentary: Present: normal turgor - Musculoskeletal Musculoskeletal Comment(s): uses a cane - Psychiatric Psychiatric: Present: A&O x's 3, appropriate affect, intact judgment & insight - Additional findings Additional findings: Breast Exam: BRA: 42C inspection: Right breast slightly larger than left breast Palpation: Right breast: Multi-positional exam fibrocystic changes, no dominant masses or nodules of concern Right axilla: No adenopathy of concern Left breast: Multi-positional exam fibrocystic changes no dominant masses or nodules of concern Left axilla: No adenopathy of concern Assessment and Plan Assessment: Impression: 1. Fibrocystic breast changes 2. Probably benign BIRADS 3 right breast changes patient status post right breast core biopsy 3. Hypertension 4. Diabetes 5. Family history of breast cancer 6. high cholesterol 7. arthritis Plan: 1. Repeat bilateral mammogram in 6 months with a right breast ultrasound as well 2. Follow-up at that time CC: Dr. Lord
== END ==
LOC: WWCWWP 10:26
PROVIDERS: ATTEND Surgery
DX: N60.11 Diffuse cystic mastopathy of right breast (principal); N60.12 Diffuse cystic mastopathy of left breast; E03.9 Hypothyroidism, unspecified; E11.9 Type 2 diabetes mellitus without complications; E78.00 Pure hypercholesterolemia, unspecified; I10 Essential (primary) hypertension; Z80.3 Family history of malignant neoplasm of breast; M19.90 Unspecified osteoarthritis, unspecified site; Z79.84 Long term (current) use of oral hypoglycemic drugs; Z79.899 Other long term (current) drug therapy

== ENCOUNTER → 2021-05-06 | Outpatient (CLI) | payer MEDICARE ==
--- NOTE | 2021-05-07 09:39 | MM ---
Reason for exam: additional evaluation requested from prior study. Last mammogram was performed 6 months ago. History: Patient is postmenopausal. Family history of premenopausal breast cancer in mother at age 38. Benign US biopsy breast VAD RT of the right breast, April 24, 2020. Benign MG stereo VAD BX RT of the right breast, April 10, 2018. Took estrogen for 2 years beginning at age 56. Physical Findings: A clinical breast exam by your physician is recommended on an annual basis and results should be correlated with mammographic findings. MG 3D Diag Mammo W/Cad EVITA Bilateral CC and MLO view(s) were taken. XCCL view(s) were taken of the left breast. Prior study comparison: October 26, 2020, right breast MG 3d diag mammo w/cad RT. April 24, 2020, right breast MG diagnostic mammo RT wo CAD. Previous mammotome biopsy in the right breast x 2. No significant new findings when compared with previous films. These results were verbally communicated with the patient and result sheet given to the patient on 05/06/21. ASSESSMENT: Benign, BI-RAD 2 RECOMMENDATION: Follow-up diagnostic mammogram of both breasts in 1 year.
--- NOTE | 2021-05-07 09:42 | USB ---
Reason for exam: follow-up at short interval from prior study. History: Patient is postmenopausal. Family history of premenopausal breast cancer in mother at age 38. Benign US biopsy breast VAD RT of the right breast, April 24, 2020. Benign MG stereo VAD BX RT of the right breast, April 10, 2018. Took estrogen for 2 years beginning at age 56. US Breast Limited RT Right limited breast ultrasound including focal area of concern, retroareolar and axilla demonstrates a 0.4 x 0.5 x 0.3cm lesion at 12 o'clock, prior measurement 7 x 4 x 4mm, continued taller than wide, no growth. These results were verbally communicated with the patient and result sheet given to the patient on 05/06/21. ASSESSMENT: Probably benign, BI-RAD 3 RECOMMENDATION: Ultrasound of the right breast in 6 months. Follow-up diagnostic mammogram of both breasts in 1 year.
== END | disposition home or self-care (01) ==
LOC: RADMAMWWP 13:39
PROVIDERS: ATTEND Surgery
DX: R92.8 Other abnormal and inconclusive findings on diagnostic imaging of breast (principal); Z78.0 Asymptomatic menopausal state; Z80.3 Family history of malignant neoplasm of breast
CPT/HCPCS: 77066; 76642; G0279; 77062

== ENCOUNTER → 2021-06-04 | Outpatient (CLI) | payer MEDICARE ==
[2021-06-04 15:13] VITALS: BP 160/93; PULSE 108; RESP 16; TEMP 98.6
--- NOTE | 2021-06-04 15:37 | P.PN ---
Subjective Progress Note Date: 06/04/21 Principal diagnosis: Radiographic abnormality right breast mammographic change right breast/ biopsy 6 months ago Netta is a 75-year-old white female status post ultrasound and stereotactic core biopsy of the right breast in the past. Both of these have been benign. The most recent biopsy was in ultrasound-guided core biopsy of the right breast and . Pathology revealed benign breast tissue with hemorrhage and collagenous fibrosis. This was felt to be benign and concordant. Her last bilateral mammogram was on 120 921 no lesions of concern were noted in the left breast. Ultrasound of the right breast was performed which led to the core biopsy. She comes today for repeat 6 month mammogram and ultrasound of the right breast. This was performed in a2321. On the mammogram is stable density in the upper-outer quadrant which had seen previously been sampled was noted. An ultrasound was recommended. The ultrasound was felt to be probably benign, BIRADS 3. Follow-up diagnostic mammogram of both breasts in 6 months with an ultrasound of the right breast was recommended. The patient does not feel any new lumps masses or nodules of concern in either breast. 06-04-21 Netta had a bilateral mammogram performed on 3322 this was felt to be benign BIRADS 2. She also underwent a right breast ultrasound which revealed a 0.4 x 0.5 cm lesion at 12:00 which was tolerated than wide. The patient is not complaining of any lumps masses or nodules of concern in her breasts. Family history: mother: breast cancer at 32, at 82 not of cancer, also had uterine cancer 7 years later sister: lung cancer father: Mesothelioma secondary to asbestos exposure Hormonal history: Menarche:11 : 3, 3 children, breast fed: no, first at 21 menopause: Hysterectomy at 55 for pain but was still having periods /they took her ovaries as well BCP: 5 years hormones: 1 1/2 years Past Surgical History 1. IRINEO 2. gallbladder 3. appy 4. 4 hip replacements one on the left, 1 on the right 5. T&A 6. core biopsy of hte right breast Medical History: 1. HTN 2. diabetic 3. hypothyroid 4. high cholesterol 5. arthritis Social History: smoke: none alcohol: none drughs: none - Constitutional Constitutional: Reports sweats - EENT Eyes: denies blurred vision, denies pain Ears: bilateral: decreased hearing (wears hearing aids), deny: tinnitus Ears, nose, mouth and throat: Denies headache, Denies sore throat - Breasts Breasts: bilateral: as per HPI - Cardiovascular Cardiovascular: Denies chest pain, Denies shortness of breath - Respiratory Respiratory: Denies cough - Gastrointestinal Gastrointestinal: Denies abdominal pain, Denies diarrhea, Denies nausea, Denies vomiting - Genitourinary (Female) Genitourinary: Reports kidney stones - Menstruation Menstruation: Reports post hysterectomy - Musculoskeletal Comment: arthritis, worst in her hips; torn tendon in her left shoulder - Integumentary Integumentary: Denies pruritus, Denies rash - Neurological Neurological: Denies numbness, Denies weakness - Psychiatric Psychiatric: Reports anxiety, Reports depression - Endocrine Endocrine: Denies fatigue, Denies weight change - Hematologic/Lymphatic Comment: none - Allergic/Immunologic Allergic/Immunologic: Reports seasonal allergies Objective - Vital Signs Vital signs: Vital Signs Temp 98.6 F 06/04/21 15:10 Pulse 108 H 06/04/21 15:10 Resp 16 06/04/21 15:10 BP 160/93 06/04/21 15:10 Pulse Ox 97 06/04/21 15:10 Intake & Output 06/03/21 06/04/21 06/04/21 18:59 06:59 18:59 Weight 69.853 kg - Exam BMI 26.4 - Constitutional General appearance: Present: cooperative - EENT ENT: Present: hearing grossly normal - Neck Neck: Present: normal ROM - Respiratory Respiratory: bilateral: CTA - Cardiovascular Heart sounds: normal: S1, S2 - Integumentary Integumentary Comment(s): normal turgor - Musculoskeletal Musculoskeletal Comment(s): uses a cane - Psychiatric Psychiatric: Present: A&O x's 3, appropriate affect, intact judgment & insight - Additional findings Additional findings: Breast Exam: BRA: 42C inspection: Bilateral grade 3 ptosis Palpation: Right breast: Multi-positional exam fibrocystic changes no dominant masses or nodules of concern Right axilla: No adenopathy of concern Left breast: Multi-positional exam fibrocystic changes no dominant masses or nodules of concern Left axilla: No adenopathy of concern Assessment and Plan Assessment: Impression: Radiographic abnormality right breast this was reviewed in detail with Dr. Cantrell the lesion is seen on ultrasound as tolerated and wide 1. HTN 2. diabetic 3. hypothyroid 4. high cholesterol 5. arthritis Plan: I discussed with the patient the ultrasound finding in the right breast. She is in agreement that she would like to have an answer for this. We would therefore recommend ultrasound-guided core biopsy of the tolerated and wide lesion in the right breast. Patient understands risks and benefits and wishes to proceed CC: Dr. Ashraf
== END ==
LOC: WWCWWP 14:30
PROVIDERS: ATTEND Surgery
DX: R92.8 Other abnormal and inconclusive findings on diagnostic imaging of breast (principal); I10 Essential (primary) hypertension; E11.9 Type 2 diabetes mellitus without complications; E03.9 Hypothyroidism, unspecified; E78.00 Pure hypercholesterolemia, unspecified; M19.90 Unspecified osteoarthritis, unspecified site

== ENCOUNTER → 2021-06-24 | Day surgery (SDC) | payer MEDICARE ==
--- NOTE | 2021-06-24 10:57 | P.PN ---
Progress Note - Text Progress Note Date: 06/24/21 Procedure ultrasound core biopsy cancelled today by radiology, Dr. Sousa. Will recommend repeat ultrasound in 6 months with visit at that time.
--- NOTE | 2021-06-24 11:27 | USB ---
Discontinued ultrasound guided right breast biopsy HISTORY: Abnormal ultrasound Correlation to prior right breast ultrasound 04/09/2020, prior mammogram 04/03/2020, 04/24/2020, 05/06/2021 and prior breast ultrasound 05/06/2021 Following review of the patient's exams and discussion with the patient, patient has elected to defer biopsy at this time. IMPRESSION: Discontinued breast biopsy. Follow-up right breast ultrasound in 6 months to assess for s tability.
== END ==
LOC: RADUSWWP 09:35
PROVIDERS: ATTEND Surgery
DX: R92.8 Other abnormal and inconclusive findings on diagnostic imaging of breast (principal); Z53.9 Procedure and treatment not carried out, unspecified reason

== ENCOUNTER → 2021-12-20 | Outpatient (CLI) | payer MEDICARE ==
--- NOTE | 2021-12-20 14:45 | USB ---
Reason for Exam: Follow-up at short interval from prior study. Patient History: Menarche at age 12. First Full-Term at age 20. Left ovary removed at age 56. Right ovary removed at age 56. Hysterectomy at age 56. Postmenopausal. Estrogen for 2 years from age 56 until age 58. 04/24/2020, Benign Core Biopsy on the right side. 04/10/2018, Benign Core Biopsy on the right side. 06/24/2021, US discontinued breast bx RT on the right side. Mother had breast cancer, age 38. Risk Values: [place] 5 year model risk: 5.0%. NCI Lifetime model risk: 10.0%. Prior Study Comparison: 04/24/2020 Right Diagnostic Mammogram, [facility]. 10/26/2020 Right Diagnostic Mammogram, [facility]. 05/06/2021 Bilateral Diagnostic Mammogram, [facility]. Findings: The upper section of the breast of the right breast, the axilla of the right breast and the retroareolar of the right breast were scanned. Limited right breast ultrasound was performed with evaluation from 12-3 o'clock and also 9:00 of the right breast. The nipple and axilla were also imaged. Stable lesion at 12:00 measuring 2.7 x 0.6 x 0.8 cm most consistent with scarring. This is continue to be taller than wide with no growth. Overall Assessment: Benign, BI-RAD 2 Management: Screening Mammogram of both breasts in 5 months. A clinical breast exam by your physician is recommended on an annual basis and results should be correlated with mammographic findings. This exam should not preclude additional follow-up of suspicious palpable abnormalities. ??Results were given to the patient verbally at the time of exam. Electronically signed and approved by: Klaus Ng D.O.
== END | disposition home or self-care (01) ==
LOC: RADUSWWP 14:07
PROVIDERS: ATTEND Surgery
DX: R92.8 Other abnormal and inconclusive findings on diagnostic imaging of breast (principal); Z78.0 Asymptomatic menopausal state; Z80.3 Family history of malignant neoplasm of breast

== ENCOUNTER → 2022-02-04 | Outpatient (CLI) | payer MEDICARE ==
[2022-02-04 16:06] VITALS: BP 176/95; PULSE 91; RESP 18; TEMP 98.3
--- NOTE | 2022-02-04 16:44 | P.PN ---
Subjective Progress Note Date: 02/04/22 mammographic change right breast/ biopsy 6 months ago Netta is a 77-year-old white female status post ultrasound and stereotactic core biopsy of the right breast in the past. Both of these have been benign. The most recent biopsy was in ultrasound-guided core biopsy of the right breast on . Pathology revealed benign breast tissue with hemorrhage and collagenous fibrosis. This was felt to be benign and concordant. She underwent a bilateral mammogram on 05-06-21. This was benign BIRAD 2. Patient on the same date had an ultrasound of her right breast which was felt to be probably benign BIRADS 3 and repeat ultrasound in 6 months was recommended. The patient however had an attempt at an ultrasound-guided core biopsy on 420 122. The lesion which was initially being followed was felt not to warrant a biopsy and the biopsy was discontinued with a follow-up right breast ultrasound in 6 months. Repeat right breast ultrasound was performed on [id number]. This was felt to be benign BIRADS 2. An area which was being followed was 2.7 x 0.8 cm felt to be consistent with scarring. Patient does not feel any new lumps masses or nodules of concern in either breast. Family history: mother: breast cancer at 32, at 82 not of cancer, also had uterine cancer 7 years later sister: lung cancer father: Mesothelioma secondary to asbestos exposure Hormonal history: Menarche:11 : 3, 3 children, breast fed: no, first at 21 menopause: Hysterectomy at 55 for pain but was still having periods /they took her ovaries as well BCP: 5 years hormones: 1 1/2 years Past Surgical History 1. IRINEO 2. gallbladder 3. appy 4. 4 hip replacements one on the left, 1 on the right 5. T&A 6. core biopsy of the right breast Medical History: 1. HTN 2. diabetic 3. hypothyroid 4. high cholesterol 5. arthritis Social History: smoke: none alcohol: none drughs: none - Constitutional Constitutional: Reports sweats - EENT Eyes: denies blurred vision, denies pain Ears: bilateral: decreased hearing (wears hearing aids), deny: tinnitus Ears, nose, mouth and throat: Denies headache, Denies sore throat - Breasts Breasts: bilateral: as per HPI - Cardiovascular Cardiovascular: Denies chest pain, Denies shortness of breath - Respiratory Respiratory: Denies cough - Gastrointestinal Gastrointestinal: Denies abdominal pain, Denies diarrhea, Denies nausea, Denies vomiting - Genitourinary (Female) Genitourinary: Reports kidney stones - Menstruation Menstruation: Reports post hysterectomy - Musculoskeletal Comment: arthritis, worst in her hips; torn tendon in her left shoulder - Integumentary Integumentary: Denies pruritus, Denies rash - Neurological Neurological: Denies numbness, Denies weakness - Psychiatric Psychiatric: Reports anxiety, Reports depression - Endocrine Endocrine: Denies fatigue, Denies weight change - Hematologic/Lymphatic Comment: none - Allergic/Immunologic Allergic/Immunologic: Reports seasonal allergies Objective - Vital Signs Vital signs: Vital Signs Temp 98.3 F 02/04/22 16:03 Pulse 91 02/04/22 16:03 Resp 18 02/04/22 16:03 BP 176/95 02/04/22 16:03 Pulse Ox 96 02/04/22 16:03 FiO2 Intake & Output 02/03/22 02/04/22 02/04/22 18:59 06:59 18:59 Weight 69.853 kg - Constitutional General appearance: Present: cooperative - EENT Eyes: Present: EOMI ENT: Present: hearing grossly normal - Neck Neck: Present: normal ROM - Respiratory Respiratory: bilateral: CTA - Cardiovascular Rhythm: regular Heart sounds: normal: S1, S2 - Integumentary Integumentary: Present: normal turgor - Musculoskeletal Musculoskeletal Comment(s): uses a cane - Psychiatric Psychiatric: Present: A&O x's 3 - Additional findings Additional findings: Breast Exam: BRA: 42C inspection: bilateral grade 3 ptosis palpation: right breast: Multi-positional exam fibrocystic changes no dominant masses or notches of concern Right axilla: No adenopathy of concern Left breast: Multi-positional exam fibrocystic changes no dominant masses or nodules of concern Left axilla: No adenopathy of concern Assessment and Plan Assessment: Impression: 1. HTN 2. diabetic 3. hypothyroid 4. high cholesterol 5. arthrits 6. Fibrocystic breast changes Plan: Bilateral mammogram in May 2022 with examination at that time Patient to follow up sooner any questions or concerns CC: Dr. Ashraf
== END ==
LOC: WWCWWP 15:28
PROVIDERS: ATTEND Surgery
DX: N60.11 Diffuse cystic mastopathy of right breast (principal); N60.12 Diffuse cystic mastopathy of left breast; I10 Essential (primary) hypertension; E11.9 Type 2 diabetes mellitus without complications; E78.00 Pure hypercholesterolemia, unspecified; M19.90 Unspecified osteoarthritis, unspecified site; Z79.84 Long term (current) use of oral hypoglycemic drugs; Z88.2 Allergy status to sulfonamides

== ENCOUNTER 2022-03-26 12:14 | Emergency (ER) | payer MEDICARE ==
[2022-03-26] MEDS ORDERED: SODIUM CHLORIDE 0.9% 1,000 ML IV STA (12:44)
--- NOTE | 2022-03-26 13:06 | XR ---
Right shoulder. HISTORY: Pain without trauma. COMPARISON: None. TECHNIQUE: Views the right shoulder were obtained. FINDINGS: There is no fracture or focal intraosseous abnormality. There is moderate osteophytic change of the g lenohumeral joint with there is moderate joint space narrowing and hypertrophic spurring of the right humeral head and glenoid. There is minimal degenerative change of the right AC joint. Soft tissues u nremarkable. IMPRESSION: Moderate degenerative arthritis of the glenohumeral joint is described above. There is no evidence of acute trauma.
--- NOTE | 2022-03-26 13:22 | CT ---
EXAMINATION TYPE: CT brain junieine wo con DATE OF EXAM: 03/26/2022 COMPARISON: None HISTORY: right shoulder pain CT DLP: 1424.4 mGycm Automated exposure control for dose reduction was used. TECHNIQUE: CT scan of the head and cervical spine are performed without contrast. FINDINGS: There is no acute intracranial hemorrhage, mass effect, or midline shift identified. The ventricles and sulci are within normal limits in size. The globes are intact and the visualized sin uses are clear. There is mild age-appropriate atrophy. Cervical spine is visualized in its entirety from C1 through upper thoracic levels and demonstrates s atisfactory alignment without evidence of acute fracture or dislocation. Prevertebral soft tissue ap pears within normal limits. The C1-C2 articulation is unremarkable. There is loss of the normal cer vical lordosis and there is advanced degenerative disc disease with disc space narrowing and spondylo sis at the C3-4-5, C5-6 and C6-7 levels. IMPRESSION: 1. There is no acute fracture or dislocation evident in the cervical spine. 2. No acute intracranial hemorrhage, mass effect, or midline shift is seen. 3. Advanced degenerative changes in the cervical spine
[2022-03-26 13:30] LABS: Basophils # (A) 0.1 k/uL (0-0.2); Basophils % (A) 1 %; Eosinophils # (A) 0.6 k/uL (0-0.7); Eosinophils % (A) 7 %; HCT 35.2 % (34.0-46.0); HGB 11.4 gm/dL (11.4-16.0); Lymphocytes # (A) 1.2 k/uL (1.0-4.8); Lymphocytes % (A) 14 %; MCH 30.4 pg (25.0-35.0); MCHC 32.4 g/dL (31.0-37.0); MCV 93.9 fL (80.0-100.0); Mean Platelet Volume 8.6; Monocytes # (A) 0.5 k/uL (0-1.0); Monocytes % (A) 5 %; Neutrophils # (A) 6.1 k/uL (1.3-7.7); Neutrophils % (A) 71 %; Platelet Count 252 k/uL (150-450); RBC 3.75 m/uL (3.80-5.40); RDW 13.4 % (11.5-15.5); WBC 8.6 k/uL (3.8-10.6)
[2022-03-26 13:32] LABS: Albumin 4.6 g/dL (3.5-5.0); Appearance,Urine Clear (Clear); Bilirubin,Urine Negative (Negative); Blood,Urine Negative (Negative); Calcium 9.2 mg/dL (8.4-10.2); Color,Urine Light Yellow; Glucose,Urine (UA) Negative (Negative); Hyaline Casts,Urine 1 /lpf (0-2); Ketones,Urine Negative (Negative); Leukocyte Esterase,Urine Moderate (Negative); Mucus,Urine Rare /hpf; Nitrite,Urine Negative (Negative); Potassium 4.8 mmol/L (3.5-5.1); Protein,Urine Negative (Negative); RBC,Urine <1 /hpf (0-5); Specific Gravity,Urine 1.012 (1.001-1.035); Squamous Epithelial Cell,Urine 1 /hpf (0-4); Total Bilirubin 0.5 mg/dL (0.2-1.3); Total Protein 7.3 g/dL (6.3-8.2); Urobilinogen,Urine <2.0 mg/dL (<2.0); WBC,Urine 3 /hpf (0-5)
[2022-03-26 13:39] LABS: Partial Thromboplastin Time 23.5 sec (22.0-30.0); Prothrombin Time 10.4 sec (9.0-12.0)
--- NOTE | 2022-03-26 15:00 | ED ---
Extremity Problem HPI - General Chief complaint: Extremity Problem,Nontraumatic Stated complaint: rt shoulder pain, unable to use hand well Time Seen by Provider: 03/26/22 12:31 Source: patient Mode of arrival: ambulatory Limitations: no limitations - History of Present Illness Initial comments: This is a 77-year-old female who presents to the emergency department for extremity problem. Patient states she woke up out of sleep around 4 AM due to right shoulder pain with numbness and tingling down the right arm. The pain continued throughout the night. Patient called her daughter around 10 AM this morning due to decreased cloth examiner ability of the right hand. She denies injury. She called her daughter who brought her to the emergency department. Patient feels that her right hand is stiff. No right upper extremity pain. No speech changes, facial asymmetry. No fever, chills, nausea, vomiting. Of note, patient follows with Dr. Box, her nutrient management specialist for pelvic fracture this past winter - Related Data Home Medications Medication Instructions Recorded Confirmed Atorvastatin [Lipitor] 20 mg PO HS 03/23/18 02/04/22 Calcium Carbonate/Vitamin D3 1 each PO QAM 03/23/18 02/04/22 [Calcium 500-Vit D3 200 Tablet] Cholecalciferol [Vitamin D3] 2,000 unit PO QAM 03/23/18 02/04/22 Imipramine [Tofranil] 10 mg PO BID 03/23/18 02/04/22 Levothyroxine Sodium [Synthroid] 88 mcg PO QAM 03/23/18 02/04/22 Losartan Potassium [Cozaar] 100 mg PO QAM 03/23/18 02/04/22 metFORMIN HCL 500 mg PO BID 03/23/18 02/04/22 Ferrous Sulfate [Iron] 325 mg PO BID 04/09/20 02/04/22 Pantoprazole Sodium [Protonix] 40 mg PO QAM 04/09/20 02/04/22 Pioglitazone HCl 15 mg PO QAM 04/09/20 02/04/22 Sertraline [Zoloft] 100 mg PO QAM 04/09/20 02/04/22 Metoprolol Tartrate [Lopressor] 25 mg PO BID 06/14/21 02/04/22 busPIRone HCL 15 mg PO BID 06/14/21 02/04/22 Previous Rx's Medication Instructions Recorded predniSONE 50 mg PO DAILY #5 tab 01/21/23 Allergies Allergy/AdvReac Type Severity Reaction Status Date / Time Sulfa (Sulfonamide Allergy Rash/Hives Verified 03/26/22 12:23 Antibiotics) Review of Systems ROS Statement: Those systems with pertinent positive or pertinent negative responses have been documented in the HPI. ROS Other: All systems not noted in ROS Statement are negative. Past Medical History Past Medical History: Diabetes Mellitus, Hyperlipidemia, Hypertension, Osteoarthritis (OA), Thyroid Disorder History of Any Multi-Drug Resistant Organisms: None Reported Past Surgical History: Adenoidectomy, Hysterectomy, Joint Replacement Additional Past Surgical History / Comment(s): bilateral hip replacment; complete hysterectomy; Past Anesthesia/Blood Transfusion Reactions: No Reported Reaction Past Psychological History: Anxiety Smoking Status: Never smoker Past Alcohol Use History: None Reported Past Drug Use History: None Reported - Past Family History Mother Family Medical History: Cancer, Diabetes Mellitus Additional Family Medical History / Comment(s): breast cancer and uterine cancer Father Family Medical History: Cancer Additional Family Medical History / Comment(s): lung cancer Sister(s) Family Medical History: Cancer Additional Family Medical History / Comment(s): lung cancer and brain cancer General Exam Limitations: no limitations General appearance: alert, in no apparent distress Head exam: Present: atraumatic, normocephalic, normal inspection Eye exam: Present: normal appearance, PERRL, EOMI. Absent: scleral icterus, conjunctival injection, periorbital swelling ENT exam: Present: normal oropharynx Neck exam: Present: normal inspection, full ROM. Absent: tenderness Respiratory exam: Present: normal lung sounds bilaterally. Absent: respiratory distress, wheezes, rales, rhonchi, stridor Cardiovascular Exam: Present: regular rate, normal rhythm, normal heart sounds. Absent: systolic murmur, diastolic murmur, rubs, gallop, clicks Extremities exam: Present: normal inspection, full ROM, normal capillary refill Right Shoulder Exam: Present: normal inspection, full ROM. Absent: tenderness, swelling, ecchymosis, deformity, crepitus, erythema, tenderness over AC joint Upper Arm exam: Present: normal inspection, full ROM. Absent: tenderness, swelling Elbow exam: Present: normal inspection, full ROM. Absent: tenderness, swelling Forearm Wrist exam: Present: normal inspection, full ROM. Absent: tenderness Hand Wrist exam: Present: normal inspection, full ROM, other (dorsal ganglion cyst). Absent: tenderness, swelling Neuro motor exam: Present: wrist extension intact, thumb opposition intact, thumb IP flexion intact, thumb adduction intact, fingers 2-5 abduction intact Neurosensory exam: Present: 2-point discrimination Vascular: Present: normal capillary refill. Absent: vascular compromise Neurological exam: Present: alert, oriented X3, CN II-XII intact Expanded Patient oriented to: Present: person, place, time Speech: Present: fluid speech Cranial nerves: EOM's Intact: Normal, Tongue Deviation: Normal, Nystagmus: Normal, Facial Sensation: Normal, Facial Palsy without Forehead Movement: Normal Cerebellar function: Finger to Nose: Normal, Heel to Barron: Normal Upper motor neuron: Joni Neglect: Normal, Pronator Drift: Normal Sensory exam: Upper Extremity Light Touch: Normal, Lower Extremity Light Touch: Normal Motor strength exam: RUE: 5, LUE: 5, RLE: 5, LLE: 5 Psychiatric exam: Present: normal affect, normal mood Skin exam: Present: warm, dry, intact, normal color. Absent: rash Course Vital Signs 03/26/22 03/26/22 12:20 15:10 Temperature 98.1 F 97.8 F Pulse Rate 85 72 Respiratory 16 20 Rate Blood Pressure 132/84 122/68 O2 Sat by Pulse 97 97 Oximetry Medical Decision Making - Medical Decision Making Was pt. sent in by a medical professional or institution ([facility], LOADING MACHINE ADJUSTER, urgent care, hospital, or senior care...) When possible be specific @ -[No] Did you speak to anyone other than the patient for history (EMS, parent, family, police, friend...)? What history was obtained from this source @ -[No] Did you review nursing and triage notes (agree or disagree)? Why? @ -[I reviewed and agree with nursing and triage notes] Were old charts reviewed (outside hosp., previous admission, EMS record, old EKG , old radiological studies, urgent care reports/EKG's, senior care records)? Report findings @ -[No old charts were reviewed] Differential Diagnosis (chest pain, altered mental status, abdominal pain women, abdominal pain men, vaginal bleeding, weakness, fever, dyspnea, syncope, headache, dizziness, GI bleed, back pain, seizure, CVA, palpatations, mental hea lth)? @ -Cervical radiculopathy, rotator cuff injury, stroke EKG interpreted by me (3pts min.). @ -EKG shows sinus rhythm with no ST segment or T-wave abnormality X-rays interpreted by me (1pt min.). @ -Yes, right shoulder x-ray shows moderate degenerative arthritis of the glenohumeral joint without evidence of acute trauma. CT interpreted by me (1pt min.). @ -Yes, negative for acute intracranial hemorrhage, mass effect, midline shift. No acute fracture dislocation evident in the cervical spine however there is loss of the normal cervical lordosis and there is advanced degenerative disc disease with disc space narrowing and spondylolisthesis at the C3 to C4 t0 C5, C5 to C6, C6-C7 levels U/S interpreted by me (1pt. min.). @ -[None done] What testing was considered but not performed or refused? (CT, X-rays, U/S, labs)? Why? @ -[None] What meds were considered but not given or refused? Why? @ -[None] Did you discuss the management of the patient with other professionals (professionals i.e. , PA, LOADING MACHINE ADJUSTER, lab, RT, psych nurse, social work administrator, monitor worker, teacher, loan service officer, rehabilitation case coordinator)? Give summary @ -[No] Was smoking cessation discussed for >3mins.? @ -[No] Was critical care preformed (if so, how long)? @ -[No] Were there social determinants of health that impacted care today? How? (Homelessness, low income, unemployed, alcoholism, drug addiction, transportation, low edu. Level, literacy, decrease access to med. care, group home, rehab)? @ -[No] Was there de-escalation of care discussed even if they declined (Discuss DNR or withdrawal of care, Hospice)? DNR status @ -[No] What co-morbidities impacted this encounter? (DM, HTN, Smoking, COPD, CAD, Cancer, CVA, ARF, Chemo, Hep., AIDS, mental health diagnosis, sleep apnea, m orbid obesity)? @ -Hypertension, diabetes mellitus Was patient admitted / discharged? Hospital course, mention meds given and route, prescriptions, significant lab abnormalities, going to OR and other pertinent info. @ EKG shows normal sinus rhythm without ST segment or T-wave abnormality. Laboratory studies shows mild JOE which was treated with fluid bolus. Troponin within normal limits. CT of the brain and C-spine without contrast shows no acute intracranial process. No fracture of the cervical spine however there is significant degenerative changes with disc space narrowing and spondylosis. Results discussed with patient and family. Patient has no pain with range of motion of the right shoulder, elbow, wrist, hand, digits. She has great cloth examiner strength. Patient does have right dorsal hand ganglion cyst which she states villa s been there for years. There is concern for cervical radiculopathy. Patient will be treated with a short course of steroids. She is diabetic and is compliant with her medication and checking her blood sugar. Patient will follow up with her nutrient management specialist. Return parameters discussed. Undiagnosed new problem with uncertain prognosis? @ -[No] Drug Therapy requiring intensive monitoring for toxicity (Heparin, Nitro, Insulin, Cardizem)? @ -[No] Were any procedures done? @ -[No] Diagnosis/symptom? @ -Cervical radiculopathy Acute, or Chronic, or Acute on Chronic? @ -acute Uncomplicated (without systemic symptoms) or Complicated (systemic symptoms)? @ -uncomplicated Side effects of treatment? @ -[No] Exacerbation, Progression, or Severe Exacerbation? @ -[No] Poses a threat to life or bodily function? How? (Chest pain, USA, [place], pneumonia, PE, COPD, DKA, ARF, appy, cholecystitis, CVA, Diverticulitis, Homicidal, Suicidal, threat to staff... and all critical care pts) @ -[No] Dr. Castro is my attending. - Lab Data Result diagrams: 03/26/22 13:12 03/26/22 13:12 Lab Results 03/26/22 03/26/22 03/26/22 Range/Units 13:12 13:12 13:12 WBC 8.6 (3.8-10.6) k/uL RBC 3.75 L (3.80-5.40) m/uL Hgb 11.4 (11.4-16.0) gm/dL Hct 35.2 (34.0-46.0) % MCV 93.9 (80.0-100.0) fL MCH 30.4 (25.0-35.0) pg MCHC 32.4 (31.0-37.0) g/dL RDW 13.4 (11.5-15.5) % Plt Count 252 (150-450) k/uL MPV 8.6 Neutrophils % 71 % Lymphocytes % 14 % Monocytes % 5 % Eosinophils % 7 % Basophils % 1 % Neutrophils # 6.1 (1.3-7.7) k/uL Lymphocytes # 1.2 (1.0-4.8) k/uL Monocytes # 0.5 (0-1.0) k/uL Eosinophils # 0.6 (0-0.7) k/uL Basophils # 0.1 (0-0.2) k/uL PT 10.4 (9.0-12.0) sec INR 1.0 (<1.2) APTT 23.5 (22.0-30.0) sec Sodium (137-145) mmol/L Potassium (3.5-5.1) mmol/L Chloride (98-107) mmol/L Carbon Dioxide (22-30) mmol/L Anion Gap mmol/L BUN (7-17) mg/dL Creatinine (0.52-1.04) mg/dL Est GFR (CKD-EPI)AfAm (>60 ml/min/1.73 sqM) Est GFR (CKD-EPI)NonAf (>60 ml/min/1.73 sqM) Glucose (74-99) mg/dL Calcium (8.4-10.2) mg/dL Total Bilirubin (0.2-1.3) mg/dL AST (14-36) U/L ALT (4-34) U/L Alkaline Phosphatase (38-126) U/L Troponin I (0.000-0.034) ng/mL Total Protein (6.3-8.2) g/dL Albumin (3.5-5.0) g/dL Urine Color Light Yellow Urine Appearance Clear (Clear) Urine pH 5.0 (5.0-8.0) Ur Specific [place] 1.012 (1.001-1.035) Urine Protein Negative (Negative) Urine Glucose (UA) Negative (Negative) Urine Ketones Negative (Negative) Urine Blood Negative (Negative) Urine Nitrite Negative (Negative) Urine Bilirubin Negative (Negative) Urine Urobilinogen <2.0 (<2.0) mg/dL Ur Leukocyte Esterase Moderate H (Negative) Urine RBC <1 (0-5) /hpf Urine WBC 3 (0-5) /hpf Ur Squamous Epith Cells 1 (0-4) /hpf Hyaline Casts 1 (0-2) /lpf Urine Mucus Rare H (None) /hpf 03/26/22 03/26/22 Range/Units 13:12 13:12 WBC (3.8-10.6) k/uL RBC (3.80-5.40) m/uL Hgb (11.4-16.0) gm/dL Hct (34.0-46.0) % MCV (80.0-100.0) fL MCH (25.0-35.0) pg MCHC (31.0-37.0) g/dL RDW (11.5-15.5) % Plt Count (150-450) k/uL MPV Neutrophils % % Lymphocytes % % Monocytes % % Eosinophils % % Basophils % % Neutrophils # (1.3-7.7) k/uL Lymphocytes # (1.0-4.8) k/uL Monocytes # (0-1.0) k/uL Eosinophils # (0-0.7) k/uL Basophils # (0-0.2) k/uL PT (9.0-12.0) sec INR (<1.2) APTT (22.0-30.0) sec Sodium 138 (137-145) mmol/L Potassium 4.8 (3.5-5.1) mmol/L Chloride 106 (98-107) mmol/L Carbon Dioxide 23 (22-30) mmol/L Anion Gap 9 mmol/L BUN 25 H (7-17) mg/dL Creatinine 1.25 H (0.52-1.04) mg/dL Est GFR (CKD-EPI)AfAm 48 (>60 ml/min/1.73 sqM) Est GFR (CKD-EPI)NonAf 42 (>60 ml/min/1.73 sqM) Glucose 96 (74-99) mg/dL Calcium 9.2 (8.4-10.2) mg/dL Total Bilirubin 0.5 (0.2-1.3) mg/dL AST 28 (14-36) U/L ALT 20 (4-34) U/L Alkaline Phosphatase 188 H (38-126) U/L Troponin I <0.012 (0.000-0.034) ng/mL Total Protein 7.3 (6.3-8.2) g/dL Albumin 4.6 (3.5-5.0) g/dL Urine Color Urine Appearance (Clear) Urine pH (5.0-8.0) Ur Specific [place] (1.001-1.035) Urine Protein (Negative) Urine Glucose (UA) (Negative) Urine Ketones (Negative) Urine Blood (Negative) Urine Nitrite (Negative) Urine Bilirubin (Negative) Urine Urobilinogen (<2.0) mg/dL Ur Leukocyte Esterase (Negative) Urine RBC (0-5) /hpf Urine WBC (0-5) /hpf Ur Squamous Epith Cells (0-4) /hpf Hyaline Casts (0-2) /lpf Urine Mucus (None) /hpf Disposition Clinical Impression: Cervical radiculopathy Disposition: HOME SELF-CARE Condition: Good Instructions (If sedation given, give patient instructions): Cervical Radiculopathy (ED) Additional Instructions: Please follow-up with nutrient management specialist. Take steroids as directed, make sure to check your blood sugar at home as we talked about. Return to emergency department experience new, concerning, or worsening symptoms. Prescriptions: predniSONE 50 mg PO DAILY #5 tab Is patient prescribed a controlled substance at d/c from ED?: No Referrals: aCrlos Ashraf MD [Primary Care Provider] - 1-2 days Time of Disposition: 14:59
[2022-03-26 15:55] VITALS: BP 122/68; PULSE 72; RESP 20; TEMP 97.8
== END 2022-03-26 15:10 | disposition home or self-care (01) ==
LOC: EC 12:14
DX: M54.12 Radiculopathy, cervical region (principal); E11.9 Type 2 diabetes mellitus without complications; E78.5 Hyperlipidemia, unspecified; I10 Essential (primary) hypertension; M19.90 Unspecified osteoarthritis, unspecified site; E07.9 Disorder of thyroid, unspecified; F41.9 Anxiety disorder, unspecified; Z88.2 Allergy status to sulfonamides; Z79.899 Other long term (current) drug therapy; Z79.890 Hormone replacement therapy; Z79.84 Long term (current) use of oral hypoglycemic drugs
CPT/HCPCS: 36415; 70450; 72125; 80053; 81001; 84484; 85025; 85610; 85730; 93005; 96360; 96361; 99284

== ENCOUNTER → 2022-08-03 | Outpatient (CLI) | payer MEDICARE ==
--- NOTE | 2022-08-04 07:46 | MM ---
Reason for Exam: Screening (asymptomatic). Last mammogram was performed 1 year(s) and 2 month(s) ago. Patient History: Menarche at age 12. First Full-Term at age 20. Left ovary removed at age 56. Right ovary removed at age 56. Hysterectomy at age 56. Postmenopausal. Estrogen for 2 years from age 56 until age 58. 04/24/2020, Benign Core Biopsy on the right side. 04/10/2018, Benign Core Biopsy on the right side. 06/24/2021, US discontinued breast bx RT on the right side. Mother had breast cancer, age 38. Risk Values: Glenis 5 year model risk: 5.0%. NCI Lifetime model risk: 9.4%. Prior Study Comparison: 04/24/2020 Right Diagnostic Mammogram, [facility]. 10/26/2020 Right Diagnostic Mammogram, [facility]. 05/06/2021 Bilateral Diagnostic Mammogram, [facility]. Tissue Density: The breast tissue is almost entirely fat. Findings: Analyzed By CAD. Right breast biopsy clips. There is no suspicious group of microcalcifications or new suspicious mass in either breast. Overall Assessment: Negative, BI-RAD 1 Management: Screening Mammogram of both breasts in [address] [facility] will attempt to contact patient to return for supplemental views and ultrasound if indicated. Patient should continue monthly self-breast exams. A clinical breast exam by your physician is recommended on an annual basis. This exam should not preclude additional follow-up of suspicious palpable abnormalities. Note on Glenis scores and lifetime risk: 1. A Glenis score greater than 3% is considered moderate risk. If this is the case, consider specialist referral to assess eligibility for a risk reducing agent. 2. If overall lifetime risk for the development of breast cancer is 20% or higher, the patient may qualify for future screening with alternating mammogram and breast MRI. Electronically signed and approved by: Carlos Adams DO
== END | disposition home or self-care (01) ==
LOC: RADMAMWWP 13:36
PROVIDERS: ATTEND Family Medicine
DX: Z12.31 Encounter for screening mammogram for malignant neoplasm of breast (principal); Z78.0 Asymptomatic menopausal state; Z80.3 Family history of malignant neoplasm of breast
CPT/HCPCS: 77063; 77067

== ENCOUNTER 2023-04-12 18:13 | Inpatient (IN) | payer MEDICARE ==
[2023-04-12 19:28] LABS: Basophils % (A) 0 %; Eosinophils # (A) 0.1 k/uL (0-0.7); Eosinophils % (A) 1 %; HGB 10.7 gm/dL (11.4-16.0); Lymphocytes # (A) 0.4 k/uL (1.0-4.8); Lymphocytes % (A) 3 %; MCH 30.5 pg (25.0-35.0); MCHC 32.3 g/dL (31.0-37.0); MCV 94.3 fL (80.0-100.0); Mean Platelet Volume 9.2; Monocytes # (A) 0.7 k/uL (0-1.0); Monocytes % (A) 6 %; Neutrophils # (A) 10.3 k/uL (1.3-7.7); Neutrophils % (A) 88 %; Platelet Count 139 k/uL (150-450); RDW 14.8 % (11.5-15.5); WBC 11.8 k/uL (3.8-10.6)
[2023-04-12 19:44] LABS: ALT 17 U/L (4-34); AST 28 U/L (14-36); African American GFR (CKD) 24 (>60 ml/min/1.73 sqM); Albumin 3.9 g/dL (3.5-5.0); Alkaline Phosphatase 123 U/L (38-126); Amylase 38 U/L (30-110); Anion Gap 9 mmol/L; Blood Urea Nitrogen 32 mg/dL (7-17); Calcium 8.7 mg/dL (8.4-10.2); Carbon Dioxide 19 mmol/L (22-30); Chloride 106 mmol/L (98-107); Glucose 144 mg/dL (74-99); Lipase 77 U/L (23-300); Non-African American GFR(CKD) 21 (>60 ml/min/1.73 sqM); Potassium 4.3 mmol/L (3.5-5.1); Sodium 134 mmol/L (137-145); Total Bilirubin 0.7 mg/dL (0.2-1.3); Total Protein 6.5 g/dL (6.3-8.2)
[2023-04-12] MEDS: SODIUM CHLORIDE 0.9% 1,000 ML IV STA ×2 (19:44→22:14)
[2023-04-12] MEDS: ACETAMINOPHEN TAB 500 MG TAB PO STA (19:45)
[2023-04-12] MEDS: IBUPROFEN 400 MG TAB PO STA (19:45)
[2023-04-12 19:52] LABS: NT-Pro-B-Type Natriuretic Pept 1920 pg/mL
[2023-04-12 20:02] LABS: Appearance,Urine Cloudy (Clear); Bilirubin,Urine Negative (Negative); Blood,Urine Small (Negative); Color,Urine Yellow; Glucose,Urine (UA) 4+ (Negative); Ketones,Urine 1+ (Negative); Leukocyte Esterase,Urine Large (Negative); Nitrite,Urine Negative (Negative); Protein,Urine 1+ (Negative); RBC,Urine 14 /hpf (0-5); Specific Gravity,Urine 1.013 (1.001-1.035); Squamous Epithelial Cell,Urine 3 /hpf (0-4); Urobilinogen,Urine <2.0 mg/dL (<2.0); WBC,Urine 116 /hpf (0-5)
--- NOTE | 2023-04-12 20:29 | XR ---
EXAMINATION TYPE: XR chest 2V DATE OF EXAM: 04/12/2023 7:59 PM CLINICAL INDICATION:Female, 78 years old with history of abdominal pain; COMPARISON: Chest radiographs from 04/12/2023 TECHNIQUE: XR chest 2V Frontal and lateral views of the chest. FINDINGS: Lungs/Pleura: There is no evidence of pleural effusion, focal consolidation, or pneumothorax. Pulmonary vascularity: Unremarkable. Heart/mediastinum: Cardiomediastinal silhouette is unremarkable. Musculoskeletal: No acute osseous pathology. IMPRESSION: No acute cardiopulmonary disease/process.
[2023-04-12] MEDS ORDERED: CEFEPIME 2 GM in SODIUM CHLORIDE 0.9% 100 ML IVPB SCH (21:00)
[2023-04-12 21:02] LABS: Partial Thromboplastin Time 26.8 sec (22.0-30.0); Prothrombin Time 10.7 sec (10.0-12.5)
[2023-04-12] MEDS ORDERED: HEPARIN SODIUM 1,000 UN/ML (10ML VL) IV PRN (21:14)
--- NOTE | 2023-04-12 21:29 | ED ---
General Adult HPI - General Chief complaint: Urogenital Stated complaint: Weakness, Tremors Time Seen by Provider: 04/12/23 18:20 Source: patient, RN notes reviewed, old records reviewed Mode of arrival: ambulatory Limitations: no limitations - History of Present Illness Initial comments: Patient is a 78-year-old female presents emergency department complaining of recurrent UTIs. Has had 3-4 UTIs over the last 5 weeks. Has been on multiple antibiotics. Presents over concern for recurrence of the UTIs. Denies any significant abdominal pain. Endorses intermittent nausea only. Denies any chest pain, shortness of breath, fevers, chills, cough. Endorses dysuria and hematuria and urinary frequency. Presents for further evaluation at this time. Past medical history remarkable for diabetes, hypertension. - Related Data Home Medications Medication Instructions Recorded Confirmed Atorvastatin [Lipitor] 20 mg PO DAILY 03/23/18 04/12/23 Imipramine [Tofranil] 10 mg PO DAILY 03/23/18 04/12/23 Ferrous Sulfate [Iron] 650 mg PO MOWEFR 04/09/20 04/12/23 Pantoprazole Sodium [Protonix] 40 mg PO DAILY 04/09/20 04/12/23 Sertraline [Zoloft] 100 mg PO DAILY 04/09/20 04/12/23 Metoprolol Tartrate [Lopressor] 25 mg PO BID 06/14/21 04/12/23 busPIRone HCL 15 mg PO BID 06/14/21 04/12/23 Aspirin [Adult Low Dose Aspirin EC] 81 mg PO DAILY 04/12/23 04/12/23 Calcium Carbonate [Calcium] 600 mg PO DAILY 04/12/23 04/12/23 Cholecalciferol [Vitamin D3 (25 25 mcg PO DAILY 04/12/23 04/12/23 Mcg = 1000 Iu)] Dapagliflozin Propanediol [Farxiga] 5 mg PO DAILY 04/12/23 04/12/23 Levothyroxine Sodium [Synthroid] 75 mcg PO DAILY 04/12/23 04/12/23 Losartan Potassium 100 mg PO DAILY 04/12/23 04/12/23 Nitrofurantoin Monohyd/M-Cryst 100 mg PO Q12HR 04/12/23 04/12/23 [Macrobid] Vibegron [Gemtesa] 75 mg PO DAILY 04/12/23 04/12/23 metFORMIN HCL ER [Glucophage XR] 500 mg PO DAILY 04/12/23 04/12/23 Allergies Allergy/AdvReac Type Severity Reaction Status Date / Time Sulfa (Sulfonamide Allergy Rash/Hives Verified 04/12/23 21:59 Antibiotics) Review of Systems ROS Statement: Those systems with pertinent positive or pertinent negative responses have been documented in the HPI. Review of Systems: CONST: Denies fever EYES: Denies blurry vision ENT: Denies nasal congestion C/V: Denies Chest pain RESP: Denies shortness of breath GI: Denies abdominal pain : Endorses dysuria SKIN: Denies rash. MSK: Denies joint pain. NEURO: Denies headache ROS Other: All systems not noted in ROS Statement are negative. Past Medical History Past Medical History: Diabetes Mellitus, Hyperlipidemia, Hypertension, Osteoarthritis (OA), Thyroid Disorder History of Any Multi-Drug Resistant Organisms: None Reported Past Surgical History: Adenoidectomy, Hysterectomy, Joint Replacement Additional Past Surgical History / Comment(s): bilateral hip replacment; complete hysterectomy; Past Anesthesia/Blood Transfusion Reactions: No Reported Reaction Past Psychological History: Anxiety Smoking Status: Never smoker Past Alcohol Use History: None Reported Past Drug Use History: None Reported - Past Family History Mother Family Medical History: Cancer, Diabetes Mellitus Additional Family Medical History / Comment(s): breast cancer and uterine cancer Father Family Medical History: Cancer Additional Family Medical History / Comment(s): lung cancer Sister(s) Family Medical History: Cancer Additional Family Medical History / Comment(s): lung cancer and brain cancer General Exam - General Exam Comments Initial Comments: General: Appears in no acute distress. Febrile HEAD: Normal with no signs of head trauma. EYES: PERRLA, EOMI, conjunctiva normal, no discharge. ENT: Hearing grossly intact, normal oropharynx. RESPIRATORY: Clear breath sounds bilaterally. No increased work of breathing. Hypoxic on room air, at worst down to 88%. Usually 89 or 90%. Patient states she is not symptomatic. C/V: Tachycardia secondary to fever more than likely. S1 and S2 auscultated, no edema, peripheral pulses 2+ and intact throughout ABD: Abd is soft, nontender, nondistended EXT: Normal range of motion, no obvious deformity SKIN: No rashes or lesions observed on exposed skin. NEURO: Alert and oriented x 4. Cranial nerves II-XII intact. No focal sensory or strength deficits. Limitations: no limitations Course Vital Signs 04/12/23 04/12/23 04/12/23 18:29 19:20 19:24 Temperature 102.6 F H Pulse Rate 109 H 99 Respiratory 18 Rate Blood Pressure 130/65 126/70 O2 Sat by Pulse 90 L 92 L 95 Oximetry 04/12/23 04/12/23 20:49 22:32 Temperature 99.4 F Pulse Rate 86 77 Respiratory 16 16 Rate Blood Pressure 119/74 105/65 O2 Sat by Pulse 95 95 Oximetry Medical Decision Making - Medical Decision Making Was pt. sent in by a medical professional or institution (, PA, TOPOGRAPHICAL SURVEYOR, urgent care, hospital, or longterm...) When possible be specific @ -No Did you speak to anyone other than the patient for history (EMS, parent, family, police, friend...)? What history was obtained from this source @ -No Did you review nursing and triage notes (agree or disagree)? Why? @ -I reviewed and agree with nursing and triage notes Were old charts reviewed (outside hosp., previous admission, EMS record, old EKG, old radiological studies, urgent care reports/EKG's, longterm records)? Report findings @ -Old chart reviewed Differential Diagnosis (chest pain, altered mental status, abdominal pain women, abdominal pain men, vaginal bleeding, weakness, fever, dyspnea, syncope, headache, dizziness, GI bleed, back pain, seizure, CVA, palpatations, mental health, musculoskeletal)? @ -UTI, upper respiratory infection, PE, ACS, electrolyte abnormality, dehydration. This list is not all inclusive. EKG interpreted by me (3pts min.). @ -As above X-rays interpreted by me (1pt min.). @ -X-ray reveals no obvious negative for DVT. Acute cardiopulmonary process. CT interpreted by me (1pt min.). @ -None done U/S interpreted by me (1pt. min.). @ -Venous duplex ultrasounds What testing was considered but not performed or refused? (CT, X-rays, U/S, labs)? Why? @ -None What meds were considered but not given or refused? Why? @ -None Did you discuss the management of the patient with other professionals (professionals i.e. , PA, TOPOGRAPHICAL SURVEYOR, lab, RT, psych nurse, older adult social work specialist, manager account management, teacher, custody officer, case filler)? Give summary @ -Discussed with admitting physician, Dr. Mensah, and he was in agreement the plan with empirically start the patient on heparin and obtaining a VQ scan tomorrow. Concern is for possible PE. He accepted the patient. Was smoking cessation discussed for >3mins.? @ -No Was critical care preformed (if so, how long)? @ -Yes, 36 minutes Were there social determinants of health that impacted care today? How? (Homelessness, low income, unemployed, alcoholism, drug addiction, transportatio n, low edu. Level, literacy, decrease access to med. care, detention, rehab)? @ -No Was there de-escalation of care discussed even if they declined (Discuss DNR or withdrawal of care, Hospice)? DNR status @ -No What co-morbidities impacted this encounter? (DM, HTN, Smoking, COPD, CAD, Cancer, CVA, ARF, Chemo, Hep., AIDS, mental health diagnosis, sleep apnea, morbid obesity)? @ -None Was patient admitted / discharged? Hospital course, mention meds given and route, prescriptions, significant lab abnormalities, going to OR and other pertinent info. @ -Based on the patient's presentation and physical exam, presents with hypoxia of unknown etiology as well as UTI symptoms. We will obtain broad workup. She was in agreement this plan. She will be given a 1 L fluid bolus. She will also be given acetaminophen for fever. Vital signs otherwise are within acceptable limits other than the hypoxia. Tachycardia likely secondary to the fever but we will continue to monitor. EKG shows no signs of acute ischemia. Patient's laboratory studies remarkable for a leukocytosis minimal of 11.8. Chronic anemia with hemoglobin of 10.7. D- dimer is 2.43. Patient has an acute kidney injury with an elevated BUN of 32 and creatinine of 2.2. Troponin is indeterminate. BNP is elevated at 1900 of unknown significance. No evidence of CHF on exam. Patient's laboratory studies remarkable for findings consistent with a UTI. Viral swabs negative. I discussed the results with the patient at this time. I would like to obtain CT angiogram however due to the patient's poor kidney function I will order VQ scan as well as venous duplex ultrasounds of the lower extremities. Will continue the patient on nasal cannula oxygen. We will start the patient on IV antibiotics for UTI and urine culture and blood culture sent. Will trend the troponin. Echo will be obtained as well. Patient will be empirically heparinized over concern for possible PE considering her hypoxia of unknown etiology. She was in agreement this plan. Venous duplex is negative for DVT. VQ scan is pending. I spoke with the admitting physician, Dr. Mensah who was in agreement this plan. Undiagnosed new problem with uncertain prognosis? @ -yes Drug Therapy requiring intensive monitoring for toxicity (Heparin, Nitro, Insulin, Cardizem)? @ -Heparin Were any procedures done? @ -No Diagnosis/symptom? @ -UTI, hypoxic respiratory failure of unknown etiology, febrile illness, acute kidney injury, elevated D-dimer Acute, or Chronic, or Acute on Chronic? @ -Acute Uncomplicated (without systemic symptoms) or Complicated (systemic symptoms)? @ -Complicated Side effects of treatment? @ -No Exacerbation, Progression, or Severe Exacerbation? @ -No Poses a threat to life or bodily function? How? (Chest pain, [place], [place], pneumonia, PE, COPD, DKA, ARF, appy, cholecystitis, CVA, Diverticulitis, Homicidal, Suicidal, threat to staff... and all critical care pts) @ -Yes - Lab Data Result diagrams: 04/12/23 19:09 04/12/23 19:09 Lab Results 04/12/23 04/12/23 04/12/23 Range/Units 19:09 19:09 19:09 WBC 11.8 H (3.8-10.6) k/uL RBC 3.50 L (3.80-5.40) m/uL Hgb 10.7 L (11.4-16.0) gm/dL Hct 33.0 L (34.0-46.0) % MCV 94.3 (80.0-100.0) fL MCH 30.5 (25.0-35.0) pg MCHC 32.3 (31.0-37.0) g/dL RDW 14.8 (11.5-15.5) % Plt Count 139 L (150-450) k/uL MPV 9.2 Neutrophils % 88 % Lymphocytes % 3 % Monocytes % 6 % Eosinophils % 1 % Basophils % 0 % Neutrophils # 10.3 H (1.3-7.7) k/uL Lymphocytes # 0.4 L (1.0-4.8) k/uL Monocytes # 0.7 (0-1.0) k/uL Eosinophils # 0.1 (0-0.7) k/uL Basophils # 0.0 (0-0.2) k/uL PT (10.0-12.5) sec INR (<1.2) APTT (22.0-30.0) sec D-Dimer (<0.60) mg/L FEU Sodium 134 L (137-145) mmol/L Potassium 4.3 (3.5-5.1) mmol/L Chloride 106 (98-107) mmol/L Carbon Dioxide 19 L (22-30) mmol/L Anion Gap 9 mmol/L BUN 32 H (7-17) mg/dL Creatinine 2.20 H (0.52-1.04) mg/dL Est GFR (CKD-EPI)AfAm 24 (>60 ml/min/1.73 sqM) Est GFR (CKD-EPI)NonAf 21 (>60 ml/min/1.73 sqM) Glucose 144 H (74-99) mg/dL Plasma Lactic Acid Keron (0.7-2.0) mmol/L Calcium 8.7 (8.4-10.2) mg/dL Total Bilirubin 0.7 (0.2-1.3) mg/dL AST 28 (14-36) U/L ALT 17 (4-34) U/L Alkaline Phosphatase 123 (38-126) U/L Troponin I (0.000-0.034) ng/mL NT-Pro-B Natriuret Pep 1920 pg/mL Total Protein 6.5 (6.3-8.2) g/dL Albumin 3.9 (3.5-5.0) g/dL Amylase 38 (30-110) U/L Lipase 77 (23-300) U/L Urine Color Yellow Urine Appearance Cloudy H (Clear) Urine pH 6.0 (5.0-8.0) Ur Specific [place] 1.013 (1.001-1.035) Urine Protein 1+ H (Negative) Urine Glucose (UA) 4+ H (Negative) Urine Ketones 1+ H (Negative) Urine Blood Small H (Negative) Urine Nitrite Negative (Negative) Urine Bilirubin Negative (Negative) Urine Urobilinogen <2.0 (<2.0) mg/dL Ur Leukocyte Esterase Large H (Negative) Urine RBC 14 H (0-5) /hpf Urine WBC 116 H (0-5) /hpf Ur Squamous Epith Cells 3 (0-4) /hpf Influenza Type A (PCR) (Not Detectd) Influenza Type B (PCR) (Not Detectd) RSV (PCR) (Not Detectd) SARS-CoV-2 (PCR) (Not Detectd) 04/12/23 04/12/23 04/12/23 Range/Units 19:09 19:26 19:26 WBC (3.8-10.6) k/uL RBC (3.80-5.40) m/uL Hgb (11.4-16.0) gm/dL Hct (34.0-46.0) % MCV (80.0-100.0) fL MCH (25.0-35.0) pg MCHC (31.0-37.0) g/dL RDW (11.5-15.5) % Plt Count (150-450) k/uL MPV Neutrophils % % Lymphocytes % % Monocytes % % Eosinophils % % Basophils % % Neutrophils # (1.3-7.7) k/uL Lymphocytes # (1.0-4.8) k/uL Monocytes # (0-1.0) k/uL Eosinophils # (0-0.7) k/uL Basophils # (0-0.2) k/uL PT (10.0-12.5) sec INR (<1.2) APTT (22.0-30.0) sec D-Dimer 2.43 H (<0.60) mg/L FEU Sodium (137-145) mmol/L Potassium (3.5-5.1) mmol/L Chloride (98-107) mmol/L Carbon Dioxide (22-30) mmol/L Anion Gap mmol/L BUN (7-17) mg/dL Creatinine (0.52-1.04) mg/dL Est GFR (CKD-EPI)AfAm (>60 ml/min/1.73 sqM) Est GFR (CKD-EPI)NonAf (>60 ml/min/1.73 sqM) Glucose (74-99) mg/dL Plasma Lactic Acid Keron 1.0 (0.7-2.0) mmol/L Calcium (8.4-10.2) mg/dL Total Bilirubin (0.2-1.3) mg/dL AST (14-36) U/L ALT (4-34) U/L Alkaline Phosphatase (38-126) U/L Troponin I (0.000-0.034) ng/mL NT-Pro-B Natriuret Pep pg/mL Total Protein (6.3-8.2) g/dL Albumin (3.5-5.0) g/dL Amylase (30-110) U/L Lipase (23-300) U/L Urine Color Urine Appearance (Clear) Urine pH (5.0-8.0) Ur Specific [place] (1.001-1.035) Urine Protein (Negative) Urine Glucose (UA) (Negative) Urine Ketones (Negative) Urine Blood (Negative) Urine Nitrite (Negative) Urine Bilirubin (Negative) Urine Urobilinogen (<2.0) mg/dL Ur Leukocyte Esterase (Negative) Urine RBC (0-5) /hpf Urine WBC (0-5) /hpf Ur Squamous Epith Cells (0-4) /hpf Influenza Type A (PCR) Not Detected (Not Detectd) Influenza Type B (PCR) Not Detected (Not Detectd) RSV (PCR) Not Detected (Not Detectd) SARS-CoV-2 (PCR) Not Detected (Not Detectd) 04/12/23 04/12/23 Range/Units 20:52 20:52 WBC (3.8-10.6) k/uL RBC (3.80-5.40) m/uL Hgb (11.4-16.0) gm/dL Hct (34.0-46.0) % MCV (80.0-100.0) fL MCH (25.0-35.0) pg MCHC (31.0-37.0) g/dL RDW (11.5-15.5) % Plt Count (150-450) k/uL MPV Neutrophils % % Lymphocytes % % Monocytes % % Eosinophils % % Basophils % % Neutrophils # (1.3-7.7) k/uL Lymphocytes # (1.0-4.8) k/uL Monocytes # (0-1.0) k/uL Eosinophils # (0-0.7) k/uL Basophils # (0-0.2) k/uL PT 10.7 (10.0-12.5) sec INR 1.0 (<1.2) APTT 26.8 (22.0-30.0) sec D-Dimer (<0.60) mg/L FEU Sodium (137-145) mmol/L Potassium (3.5-5.1) mmol/L Chloride (98-107) mmol/L Carbon Dioxide (22-30) mmol/L Anion Gap mmol/L BUN (7-17) mg/dL Creatinine (0.52-1.04) mg/dL Est GFR (CKD-EPI)AfAm (>60 ml/min/1.73 sqM) Est GFR (CKD-EPI)NonAf (>60 ml/min/1.73 sqM) Glucose (74-99) mg/dL Plasma Lactic Acid Keron (0.7-2.0) mmol/L Calcium (8.4-10.2) mg/dL Total Bilirubin (0.2-1.3) mg/dL AST (14-36) U/L ALT (4-34) U/L Alkaline Phosphatase (38-126) U/L Troponin I 0.015 (0.000-0.034) ng/mL NT-Pro-B Natriuret Pep pg/mL Total Protein (6.3-8.2) g/dL Albumin (3.5-5.0) g/dL Amylase (30-110) U/L Lipase (23-300) U/L Urine Color Urine Appearance (Clear) Urine pH (5.0-8.0) Ur Specific [place] (1.001-1.035) Urine Protein (Negative) Urine Glucose (UA) (Negative) Urine Ketones (Negative) Urine Blood (Negative) Urine Nitrite (Negative) Urine Bilirubin (Negative) Urine Urobilinogen (<2.0) mg/dL Ur Leukocyte Esterase (Negative) Urine RBC (0-5) /hpf Urine WBC (0-5) /hpf Ur Squamous Epith Cells (0-4) /hpf Influenza Type A (PCR) (Not Detectd) Influenza Type B (PCR) (Not Detectd) RSV (PCR) (Not Detectd) SARS-CoV-2 (PCR) (Not Detectd) - EKG Data -: EKG Interpreted by Me EKG Comments: 12-lead Electrocardiogram Interpretation Note EKG was reviewed and interpreted by myself. 12-lead ECG performed at 1843 is interpreted by me as revealing sinus tachycardia at a rate of 107 beats per minute. [place] is normal. NM interval is 173 ms, QRS duration 75 ms, QTc is 392 ms.. There were no ST or T wave abnormalities to suggest myocardial ischemia or injury. R wave progression across the precordium was satisfactory. By my interpretation this EKG is non-diagnostic for acute ischemia. Critical Care Time Critical Care Time: Yes Total Critical Care Time: 36 Disposition Clinical Impression: Hypoxic respiratory failure, UTI (urinary tract infection), Febrile illness, acute, Elevated d-dimer, JOE (acute kidney injury) Disposition: ADMITTED IP TO THIS HOSP Condition: Serious Time of Disposition: 21:12
[2023-04-12] MEDS ORDERED: ONDANSETRON 4 MG/2 ML VIAL IVP PRN (21:33)
[2023-04-12] MEDS ORDERED: NALOXONE 0.4 MG/ML 1 ML VIAL IV PRN (21:33)
--- NOTE | 2023-04-12 21:51 | US ---
EXAMINATION TYPE: US venous doppler duplex LE DATE OF EXAM: 04/12/2023 8:37 PM COMPARISON: NONE CLINICAL INDICATION: Female, 78 years old with history of eval dvt; Elevated d dimer. No hx of DVT. N ot on blood thinners SIDE PERFORMED: Bilateral TECHNIQUE: The lower extremity deep venous system is examined utilizing real time linear array sonog nirav with graded compression, doppler sonography and color-flow sonography. VESSELS IMAGED: Common Femoral Vein Deep Femoral Vein Greater Saphenous Vein * Femoral Vein Popliteal Vein Small Saphenous Vein * Proximal Calf Veins (* superficial vessels) Right Leg: No evidence for DVT Left Leg: No evidence for DVT IMPRESSION: Grayscale, color doppler, spectral doppler imaging performed of the deep veins of the lo wer extremities. There is normal flow, compressibility, vascular waveforms.
[2023-04-12] MEDS: CEFEPIME 1 GM in SODIUM CHLORIDE 0.9% 50 ML IVPB SCH (22:12)
[2023-04-12] MEDS: HEPARIN SOD,PORK IN 0.45% NACL 25,000 UNIT in 0.45% NACL 1 250ML.BAG IV SCH (22:29)
[2023-04-12] MEDS: HEPARIN SODIUM 1,000 UN/ML (10ML VL) IV ONE (22:30)
[2023-04-12] MEDS: ASPIRIN 81 MG PO STA (23:50)
[2023-04-13] MEDS: MELATONIN 5 MG TABLET PO PRN (02:28)
--- NOTE | 2023-04-13 02:39 | P.CNPUL ---
History of Present Illness Consult date: 04/13/23 Requesting physician: Nas Briones Reason for consult: other (Elevated D-dimer) Chief complaint: Urogenital symptoms History of present illness: I am seeing this patient in consultation today April 13, 2023 in the emergency room for an elevated D-dimer and evaluation for possible PE. Patient presented with infectious urogenital symptoms and has a urinary tract infection. Patient is a 78-year-old female with past medical history significant for hypertension, hyperlipidemia, diabetes mellitus, hypothyroidism. Over the past month, the patient has been treated on multiple different occasions for urinary tract infection. She was referred to a urologist on Monday for these symptoms. A urine culture was sent on 04/10/23 and is growing gram-negative bacilli. She presented to the emergency room late last night for urogenital symptoms. She has had urinary frequency and previous hematuria. She had chills and subjective fevers at home. No flank pain. No suprapubic tenderness. No specific dysuria. No further hematuria. She was mildly hypoxic on arrival. She is placed on 2 L nasal cannula. Chest x-ray did not show any acute cardiopulmonary process. Denies cough, sputum production, shortness of breath. Negative for influenza, RSV, COVID. denies any history of prior lung disease. A D-dimer was ordered by the ER physician, and was found to be elevated. No chest CTA was done due to kidney function. She was started on IV heparin protocol. She denies any shortness of breath, chest pain, back pain, hemoptysis. She has no prior history of thromboembolus, malignancy, or surgery. She is not tachycardic. NT- proBNP 1920. Troponin 0.015. Clinically, risk for pulmonary embolism is thought to be low. VQ scan is pending for the morning. CBC on arrival: WC count 11.8, hemoglobin 10.7, hematocrit 33, platelets 139. Coagulation profile WDL. BMP on arrival: Sodium 134, potassium 4.3, chloride 106, serum bicarb 19, BUN 32, creatinine 2.2, glucose 144. Normal saline infusing at 75 mL/h. Urinalysis reviewed. Cefepime was added. Patient was febrile with a Tmax of 102.6 F on arrival. Currently afebrile. Vital signs stable. Review of Systems REVIEW OF SYSTEMS: CONSTITUTIONAL: Denies any recent significant weight loss or weight gain. Admits subjective fevers and chills. Admits generalized fatigue. EYES: Denies change in vision. EARS, NOSE, MOUTH, THROAT: Denies headaches, denies sore throat. CARDIOVASCULAR: Denies chest pain, palpitations or syncopal episodes. RESPIRATORY: Denies shortness of breath, cough, congestion or hemoptysis. GASTROINTESTINAL: Denies change in appetite, abdominal pain, nausea and vomiting, or diarrhea GENITOURINARY: See HPI. MUSKULOSKELETAL: Denies pain, denies swelling. INTEGUMENTARY: Denies rash, denies eczema. NEUROLOGICAL: Denies recent memory loss, no recent seizure activity. PSYCHIATRIC: Denies anxiety, denies depression. HEMATOLOGIC/LYMPHATIC: Denies anemia, denies enlarged lymph node Past Medical History Past Medical History: Diabetes Mellitus, Hyperlipidemia, Hypertension, Osteoarthritis (OA), Thyroid Disorder History of Any Multi-Drug Resistant Organisms: None Reported Past Surgical History: Adenoidectomy, Hysterectomy, Joint Replacement Additional Past Surgical History / Comment(s): bilateral hip replacment; complete hysterectomy; Past Anesthesia/Blood Transfusion Reactions: No Reported Reaction Past Psychological History: Anxiety Smoking Status: Never smoker Past Alcohol Use History: None Reported Past Drug Use History: None Reported - Past Family History Mother Family Medical History: Cancer, Diabetes Mellitus Additional Family Medical History / Comment(s): breast cancer and uterine cancer Father Family Medical History: Cancer Additional Family Medical History / Comment(s): lung cancer Sister(s) Family Medical History: Cancer Additional Family Medical History / Comment(s): lung cancer and brain cancer Medications and Allergies Home Medications Medication Instructions Recorded Confirmed Type Atorvastatin [Lipitor] 20 mg PO DAILY 03/23/18 04/12/23 History Imipramine [Tofranil] 10 mg PO DAILY 03/23/18 04/12/23 History Ferrous Sulfate [Iron] 650 mg PO MOWEFR 04/09/20 04/12/23 History Pantoprazole Sodium [Protonix] 40 mg PO DAILY 04/09/20 04/12/23 History Sertraline [Zoloft] 100 mg PO DAILY 04/09/20 04/12/23 History Metoprolol Tartrate [Lopressor] 25 mg PO BID 06/14/21 04/12/23 History busPIRone HCL 15 mg PO BID 06/14/21 04/12/23 History Aspirin [Adult Low Dose Aspirin EC] 81 mg PO DAILY 04/12/23 04/12/23 History Calcium Carbonate [Calcium] 600 mg PO DAILY 04/12/23 04/12/23 History Cholecalciferol [Vitamin D3 (25 25 mcg PO DAILY 04/12/23 04/12/23 History Mcg = 1000 Iu)] Dapagliflozin Propanediol [Farxiga] 5 mg PO DAILY 04/12/23 04/12/23 History Levothyroxine Sodium [Synthroid] 75 mcg PO DAILY 04/12/23 04/12/23 History Losartan Potassium 100 mg PO DAILY 04/12/23 04/12/23 History Nitrofurantoin Monohyd/M-Cryst 100 mg PO Q12HR 04/12/23 04/12/23 History [Macrobid] Vibegron [Gemtesa] 75 mg PO DAILY 04/12/23 04/12/23 History metFORMIN HCL ER [Glucophage XR] 500 mg PO DAILY 04/12/23 04/12/23 History Allergies Allergy/AdvReac Type Severity Reaction Status Date / Time Sulfa (Sulfonamide Allergy Rash/Hives Verified 04/12/23 21:59 Antibiotics) Physical Exam Vitals: Vital Signs Temp Pulse Resp BP Pulse Ox 04/13/23 01:30 74 18 102/65 96 04/12/23 22:32 77 16 105/65 95 04/12/23 20:49 99.4 F 86 16 119/74 95 04/12/23 19:24 95 04/12/23 19:20 99 126/70 92 L 04/12/23 18:29 102.6 F H 109 H 18 130/65 90 L Intake and Output 04/12/23 04/12/23 04/13/23 14:59 22:59 06:59 Other: Weight 68.039 kg GENERAL EXAM: Alert, 78-year-old white female, comfortable in no apparent distress. HEAD: Normocephalic and atraumatic EYES: Normal reaction of pupils, equal size. NOSE: Clear with pink turbinates. THROAT: No erythema or exudates. NECK: No masses, no JVD. CHEST: No chest wall deformity. LUNGS: Equal air entry with no crackles, wheeze, rhonchi or dullness. On 2 L/min nasal cannula. SpO2 is 96%. No conversational dyspnea or accessory muscle use.. CVS: S1 and S2 normal with no audible murmur, regular rhythm. No extra heart sounds ABDOMEN: No hepatosplenomegaly, active bowel sounds, no guarding or rigidity. SPINE: No scoliosis or deformity. No CVA tenderness. SKIN: No rashes CENTRAL NERVOUS SYSTEM: No focal deficits, tone is normal in all 4 extremities. EXTREMITIES: There is no peripheral edema, clubbing, or cyanosis. Peripheral pu lses are intact. Results - Laboratory Findings CBC and BMP: 04/12/23 19:09 04/12/23 19:09 PT/INR, D-dimer PT 10.7 sec (10.0-12.5) 04/12/23 20:52 INR 1.0 (<1.2) 04/12/23 20:52 D-Dimer 2.43 mg/L FEU (<0.60) H 04/12/23 19:26 Abnormal lab findings: Abnormal Labs 04/12/23 04/12/23 04/12/23 19:09 19:09 19:09 WBC 11.8 H RBC 3.50 L Hgb 10.7 L Hct 33.0 L Plt Count 139 L Neutrophils # 10.3 H Lymphocytes # 0.4 L D-Dimer Sodium 134 L Carbon Dioxide 19 L BUN 32 H Creatinine 2.20 H Glucose 144 H Urine Appearance Cloudy H Urine Protein 1+ H Urine Glucose (UA) 4+ H Urine Ketones 1+ H Urine Blood Small H Ur Leukocyte Esterase Large H Urine RBC 14 H Urine WBC 116 H 04/12/23 19:26 WBC RBC Hgb Hct Plt Count Neutrophils # Lymphocytes # D-Dimer 2.43 H Sodium Carbon Dioxide BUN Creatinine Glucose Urine Appearance Urine Protein Urine Glucose (UA) Urine Ketones Urine Blood Ur Leukocyte Esterase Urine RBC Urine WBC - Diagnostic Findings Chest x-ray: image reviewed Assessment and Plan Assessment: Complicated urinary tract infection with reoccurrence Acute hypoxemic respiratory failure, currently on 2 L/min nasal cannula, possibly secondary to above. Chest x-ray does not show any acute cardiopulmonary process. Negative for influenza, RSV, COVID. Elevated D-dimer, clinical suspicion for pulmonary embolism is low. Likely related to infection. Patient currently on the IV heparin protocol. VQ scan is pending. Acute kidney injury, creatinine 2.2 Diabetes mellitus Hypertension Hyperlipidemia Hypothyroidism Plan: Patient's medications, labs, chest x-ray reviewed. Continue supplemental oxygen and wean as tolerated D-dimer is elevated, and patient was started on IV heparin protocol in the ER. Chest CTA was deferred secondary to renal function. VQ scan is pending. IV heparin will be discontinued pending results. Patient was placed on cefepime for UTI She is requesting to see her urologist. Obtain ultrasound of kidney and bladder IV maintenance fluids infusing We will continue to follow, and further recommendations are forthcoming I have personally seen and examined the patient, performed the documentation and the assessment and plan as written. Number of minutes spent on the visit:20 Time with Patient: Greater than 30
[2023-04-13] MEDS ORDERED: DEXTROSE 50% SYRINGE 50 ML IVP PRN ×2 (02:48)
[2023-04-13 05:04] LABS: Basophils % (A) 0 %; Eosinophils # (A) 0.1 k/uL (0-0.7); Eosinophils % (A) 1 %; HCT 28.3 % (34.0-46.0); HGB 9.3 gm/dL (11.4-16.0); Hypochromasia Slight; Lymphocytes % (A) 9 %; MCH 31.4 pg (25.0-35.0); MCHC 32.8 g/dL (31.0-37.0); MCV 95.9 fL (80.0-100.0); Mean Platelet Volume 9.8; Monocytes # (A) 0.4 k/uL (0-1.0); Monocytes % (A) 4 %; Neutrophils # (A) 8.6 k/uL (1.3-7.7); Neutrophils % (A) 82 %; Platelet Count 112 k/uL (150-450); RBC 2.95 m/uL (3.80-5.40); RDW 14.9 % (11.5-15.5); WBC 10.5 k/uL (3.8-10.6)
--- NOTE | 2023-04-13 05:08 | P.HPIM ---
History of Present Illness H&P Date: 04/12/23 Chief Complaint: chills, not feeling well 78-year-old female with diabetes mellitus Patient coming in for increased weakness episodes of chills and not feeling well. She reports that over the past month she has been diagnosed multiple times with urinary tract infection however other than chills and increased weakness she denies any other urinary symptoms she denies nausea vomiting back pain abdominal pain denies any dysuria increased frequency or urinary retention however she does report 1 episode of hematuria yesterday. She has finished multiple courses of antibiotics. Most recent urine culture from April 10 was positive for gram-negative bacilli. In the ED patient was also found to be febrile with temperature of 102 Upon evaluation in the ED patient was also found to be hypoxic with oxygen saturation dropping to 90% on room air again patient denies any symptoms of shortness of breath or chest pain however further testing did show D-dimer positive but patient could not receive dye for CT angio of the chest due to elevated renal function with creatinine of 2.2.. Chest x-ray showed no acute abnormalities. Patient was empirically started on IV heparin awaiting further testing in the morning Patient denies any history of blood clots denies any active diagnosis of cancer denies any recent hospital stay or travel denies any recent surgeries. Patient also reported an episode of fall without head injury she is not on any blood thinners. She uses a walker to ambulate Patient denies any tobacco smoking illicit drugs or heavy alcohol.. review of systems Pertinent positives as noted in HPI. All other systems were reviewed and are negative on exam Constitutional: No acute distress, conversant, pleasant Eyes: Anicteric sclerae, moist conjunctiva, Pupils equal round reactive to light ENMT: NC/AT Oropharynx clear, no erythema, or exudates Neck: Supple, no masses, or JVD No carotid bruits No thyromegaly Lungs: Clear to auscultation Clear to percussion Normal respiratory effort, no accessory muscle use Cardiovascular: Heart regular in rate and rhythm, No murmurs, gallops, or rubs No peripheral edema Abdominal: Soft Nontender, no guarding, rebound or rigidity Abdomen moving with respiration Normoactive bowel sounds No hepatomegaly, No splenomegaly No palpable mass No abdominal wall hernia noted Extremities: No digital cyanosis No clubbing Pedal pulses intact and symmetrical Radial pulses intact and symmetrical No calf tenderness Psychiatric: Alert and oriented to person, place and time Appropriate affect fair judgement Neuro Muscles Strength 4/5 in all 4 extremities Sensation to light touch grossly present throughout Cranial nerves II-XII grossly intact Past Medical History Past Medical History: Diabetes Mellitus, Hyperlipidemia, Hypertension, Osteoarthritis (OA), Thyroid Disorder History of Any Multi-Drug Resistant Organisms: None Reported Past Surgical History: Adenoidectomy, Hysterectomy, Joint Replacement Additional Past Surgical History / Comment(s): bilateral hip replacment; complete hysterectomy; Past Anesthesia/Blood Transfusion Reactions: No Reported Reaction Past Psychological History: Anxiety Smoking Status: Never smoker Past Alcohol Use History: None Reported Past Drug Use History: None Reported - Past Family History Mother Family Medical History: Cancer, Diabetes Mellitus Additional Family Medical History / Comment(s): breast cancer and uterine cancer Father Family Medical History: Cancer Additional Family Medical History / Comment(s): lung cancer Sister(s) Family Medical History: Cancer Additional Family Medical History / Comment(s): lung cancer and brain cancer Medications and Allergies Home Medications Medication Instructions Recorded Confirmed Type Atorvastatin [Lipitor] 20 mg PO DAILY 03/23/18 04/12/23 History Imipramine [Tofranil] 10 mg PO DAILY 03/23/18 04/12/23 History Ferrous Sulfate [Iron] 650 mg PO MOWEFR 04/09/20 04/12/23 History Pantoprazole Sodium [Protonix] 40 mg PO DAILY 04/09/20 04/12/23 History Sertraline [Zoloft] 100 mg PO DAILY 04/09/20 04/12/23 History Metoprolol Tartrate [Lopressor] 25 mg PO BID 06/14/21 04/12/23 History busPIRone HCL 15 mg PO BID 06/14/21 04/12/23 History Aspirin [Adult Low Dose Aspirin EC] 81 mg PO DAILY 04/12/23 04/12/23 History Calcium Carbonate [Calcium] 600 mg PO DAILY 04/12/23 04/12/23 History Cholecalciferol [Vitamin D3 (25 25 mcg PO DAILY 04/12/23 04/12/23 History Mcg = 1000 Iu)] Dapagliflozin Propanediol [Farxiga] 5 mg PO DAILY 04/12/23 04/12/23 History Levothyroxine Sodium [Synthroid] 75 mcg PO DAILY 04/12/23 04/12/23 History Losartan Potassium 100 mg PO DAILY 04/12/23 04/12/23 History Nitrofurantoin Monohyd/M-Cryst 100 mg PO Q12HR 04/12/23 04/12/23 History [Macrobid] Vibegron [Gemtesa] 75 mg PO DAILY 04/12/23 04/12/23 History metFORMIN HCL ER [Glucophage XR] 500 mg PO DAILY 04/12/23 04/12/23 History Allergies Allergy/AdvReac Type Severity Reaction Status Date / Time Sulfa (Sulfonamide Allergy Rash/Hives Verified 04/12/23 21:59 Antibiotics) Physical Exam Vitals: Vital Signs Temp Pulse Resp BP Pulse Ox 04/12/23 20:49 99.4 F 86 16 119/74 95 04/12/23 19:24 95 04/12/23 19:20 99 126/70 92 L 04/12/23 18:29 102.6 F H 109 H 18 130/65 90 L Intake and Output 04/12/23 04/12/23 04/12/23 06:59 14:59 22:59 Other: Weight 68.039 kg Results CBC & Chem 7: 04/12/23 19:09 04/12/23 19:09 Labs: Abnormal Lab Results - Last 24 Hours (Table) 04/12/23 04/12/23 04/12/23 Range/Units 19:09 19:09 19:09 WBC 11.8 H (3.8-10.6) k/uL RBC 3.50 L (3.80-5.40) m/uL Hgb 10.7 L (11.4-16.0) gm/dL Hct 33.0 L (34.0-46.0) % Plt Count 139 L (150-450) k/uL Neutrophils # 10.3 H (1.3-7.7) k/uL Lymphocytes # 0.4 L (1.0-4.8) k/uL D-Dimer (<0.60) mg/L FEU Sodium 134 L (137-145) mmol/L Carbon Dioxide 19 L (22-30) mmol/L BUN 32 H (7-17) mg/dL Creatinine 2.20 H (0.52-1.04) mg/dL Glucose 144 H (74-99) mg/dL Urine Appearance Cloudy H (Clear) Urine Protein 1+ H (Negative) Urine Glucose (UA) 4+ H (Negative) Urine Ketones 1+ H (Negative) Urine Blood Small H (Negative) Ur Leukocyte Esterase Large H (Negative) Urine RBC 14 H (0-5) /hpf Urine WBC 116 H (0-5) /hpf 04/12/23 Range/Units 19:26 WBC (3.8-10.6) k/uL RBC (3.80-5.40) m/uL Hgb (11.4-16.0) gm/dL Hct (34.0-46.0) % Plt Count (150-450) k/uL Neutrophils # (1.3-7.7) k/uL Lymphocytes # (1.0-4.8) k/uL D-Dimer 2.43 H (<0.60) mg/L FEU Sodium (137-145) mmol/L Carbon Dioxide (22-30) mmol/L BUN (7-17) mg/dL Creatinine (0.52-1.04) mg/dL Glucose (74-99) mg/dL Urine Appearance (Clear) Urine Protein (Negative) Urine Glucose (UA) (Negative) Urine Ketones (Negative) Urine Blood (Negative) Ur Leukocyte Esterase (Negative) Urine RBC (0-5) /hpf Urine WBC (0-5) /hpf Assessment and Plan Assessment: 78-year-old female with diabetes mellitus coming in for increased weakness and chills frequent diagnosis of UTI I discussed the case with ED doctor accepted the admission for acute hypoxic respiratory failure rule out pulmonary embolism, urinary tract infection recurrent with anticipated length of stay more than 2 midnights Acute hypoxic respiratory failure Supplemental oxygen as needed Chest x-ray no acute cardiopulmonary process D-dimer positive CT angio of the chest could not be done due to renal function VQ scan ordered for the morning Patient initiated on heparin drip Supplemental oxygen as needed Acute viral respiratory panel negative for COVID RSV and influenza D-dimer 2.4 elevated Urinary tract infection recurrent Most recent urine culture April 10 positive for gram-negative bacilli Follow-up cultures Patient was started on cefepime in the ED will switch to Rocephin 1 g IV piggyback daily Tylenol for fever White count 11.8, fever 102 Diabetes mellitus Insulin sliding scale Falling and increased weakness at home Fall precautions PT evaluation Acute on chronic kidney disease Sodium 134 potassium 4.3 BUN 32 creatinine 2.2 Monitor urine output Avoid nephrotoxic meds Hypertension Losartan on hold secondary to acute on chronic kidney injury Acute anemia Patient denies any bleeding Hemoglobin 10.7 Patient reports 1 episodes of hematuria otherwise denies any bleeding Full code DVT prophylaxis on heparin drip for suspected PE
[2023-04-13 05:15] LABS: Glucose,Whole Blood 129 mg/dL (70-110)
[2023-04-13 06:08] LABS: African American GFR (CKD) 22 (>60 ml/min/1.73 sqM); Anion Gap 8 mmol/L; Blood Urea Nitrogen 35 mg/dL (7-17); Calcium 8.5 mg/dL (8.4-10.2); Carbon Dioxide 17 mmol/L (22-30); Chloride 112 mmol/L (98-107); Glucose 148 mg/dL (74-99); Non-African American GFR(CKD) 19 (>60 ml/min/1.73 sqM); Potassium 4.2 mmol/L (3.5-5.1); Sodium 137 mmol/L (137-145)
[2023-04-13] MEDS: LEVOTHYROXINE 75 MCG TAB PO SCH (06:43)
--- NOTE | 2023-04-13 07:49 | US ---
EXAMINATION TYPE: US kidneys/renal and bladder DATE OF EXAM: 04/13/2023 COMPARISON: NONE CLINICAL INDICATION: Female, 78 years old with history of JOE; presistent UTI; Hematuria; UTI EXAM MEASUREMENTS: Right Kidney: 7.9 x 3.6 x 3.3 cm Left Kidney: 9.9 x 5.0 x 3.9 cm Right Kidney: No hydronephrosis or masses seen Left Kidney: No hydronephrosis or masses seen Bladder: wnl Bilateral Jets seen: Yes There is no evidence for hydronephrosis at this point in time. No nephrolithiasis is seen. No wally s are identified. The urinary bladder is anechoic. Bilateral ureteral jets are seen. IMPRESSION: No distinct abnormality seen.
--- NOTE | 2023-04-13 08:47 | NM ---
EXAMINATION TYPE: NM pul vent and perfuse DATE OF EXAM: 04/13/2023 CLINICAL INDICATION: Female, 78 years old with history of dyspnea; HISTORY: dyspnea TECHNIQUE: Utilizing inhalation of 38.2 mCi Tc 99m DTPA aerosol and intravenous injection of 5.24 mC i of Tc 99m MAA, ventilation and perfusion images are acquired post injection in multiple projections . FINDINGS: Small matched defect in right lower lobe. Additional small matched defect left lower lobe and left up per lobe. No perfusion/ventilation mismatch. IMPRESSION: Low to intermediate probability of pulmonary embolism.
[2023-04-13] MEDS: ATORVASTATIN 20 MG TAB PO SCH (08:56)
[2023-04-13] MEDS: busPIRone HCl 5 MG TAB PO SCH (08:56)
[2023-04-13] MEDS: ASPIRIN 81 MG PO SCH (08:56)
[2023-04-13] MEDS: METOPROLOL TARTRATE 25 MG TAB PO SCH (08:56)
[2023-04-13] MEDS: SERTRALINE 100 MG TAB PO SCH (08:56)
[2023-04-13] MEDS: PANTOPRAZOLE 40 MG TABLET PO SCH (08:56)
[2023-04-13] MEDS: INSULIN ASPART (NovoLOG) 100 UNIT/ML VIAL SQ SCH (10:05)
[2023-04-13] MEDS: IMIPRAMINE 10 MG TAB PO SCH (10:07)
[2023-04-13] MEDS: NON FORMULARY DRUG (Vibegron [Gemtesa] 75 MG Tablet) PO SCH (10:49)
--- NOTE | 2023-04-13 10:59 | P.NPCON ---
History of Present Illness - Reason for Consult acute renal failure - History of Present Illness Patient is a 78-year-old female who was recently treated for UTI as outpatient on 2 different courses of antibiotics. Patient complained of chills and increased weakness and did see urologist on Monday as outpatient. At that time urine culture was not back. Patient was advised to continue with antibiotics. There was no urine retention noted on the bladder scan in the office. Patient complained of increased weakness with chills and therefore came into the hospital. No previous history of kidney diseases. Serum creatinine at 2.2 mg yesterday and 2.3 today. Previous creatinine on 03/26/2022 1.25 mg/dL. Blood pressure is noted to be on the lower side. Currently patient is maintained on IV fluids. She has been voiding. Maintained on angiotensin receptor blockers, Farxiga and metformin at home prior to admission. All are currently on hold. Review of Systems As per HPI Past Medical History Past Medical History: Diabetes Mellitus, Hyperlipidemia, Hypertension, Osteoarthritis (OA), Thyroid Disorder History of Any Multi-Drug Resistant Organisms: None Reported Past Surgical History: Adenoidectomy, Hysterectomy, Joint Replacement Additional Past Surgical History / Comment(s): bilateral hip replacment; complete hysterectomy; Past Anesthesia/Blood Transfusion Reactions: No Reported Reaction Past Psychological History: Anxiety Smoking Status: Never smoker Past Alcohol Use History: None Reported Past Drug Use History: None Reported - Past Family History Mother Family Medical History: Cancer, Diabetes Mellitus Additional Family Medical History / Comment(s): breast cancer and uterine cancer Father Family Medical History: Cancer Additional Family Medical History / Comment(s): lung cancer Sister(s) Family Medical History: Cancer Additional Family Medical History / Comment(s): lung cancer and brain cancer Medications and Allergies Home Medications Medication Instructions Recorded Confirmed Type Atorvastatin [Lipitor] 20 mg PO DAILY 03/23/18 04/12/23 History Imipramine [Tofranil] 10 mg PO DAILY 03/23/18 04/12/23 History Ferrous Sulfate [Iron] 650 mg PO MOWEFR 04/09/20 04/12/23 History Pantoprazole Sodium [Protonix] 40 mg PO DAILY 04/09/20 04/12/23 History Sertraline [Zoloft] 100 mg PO DAILY 04/09/20 04/12/23 History Metoprolol Tartrate [Lopressor] 25 mg PO BID 06/14/21 04/12/23 History busPIRone HCL 15 mg PO BID 06/14/21 04/12/23 History Aspirin [Adult Low Dose Aspirin EC] 81 mg PO DAILY 04/12/23 04/12/23 History Calcium Carbonate [Calcium] 600 mg PO DAILY 04/12/23 04/12/23 History Cholecalciferol [Vitamin D3 (25 25 mcg PO DAILY 04/12/23 04/12/23 History Mcg = 1000 Iu)] Dapagliflozin Propanediol [Farxiga] 5 mg PO DAILY 04/12/23 04/12/23 History Levothyroxine Sodium [Synthroid] 75 mcg PO DAILY 04/12/23 04/12/23 History Losartan Potassium 100 mg PO DAILY 04/12/23 04/12/23 History Nitrofurantoin Monohyd/M-Cryst 100 mg PO Q12HR 04/12/23 04/12/23 History [Macrobid] Vibegron [Gemtesa] 75 mg PO DAILY 04/12/23 04/12/23 History metFORMIN HCL ER [Glucophage XR] 500 mg PO DAILY 04/12/23 04/12/23 History Allergies Allergy/AdvReac Type Severity Reaction Status Date / Time Sulfa (Sulfonamide Allergy Rash/Hives Verified 04/12/23 21:59 Antibiotics) Physical Exam Vitals: Vital Signs Temp Pulse Pulse Resp BP BP Pulse Ox 04/13/23 08:46 98.7 F 103 H 16 117/80 92 L 04/13/23 05:00 75 18 126/72 99 04/13/23 01:30 74 18 102/65 96 04/12/23 22:32 77 16 105/65 95 04/12/23 20:49 99.4 F 86 16 119/74 95 04/12/23 19:24 95 04/12/23 19:20 99 126/70 92 L 04/12/23 18:29 102.6 F H 109 H 18 130/65 90 L Intake and Output 04/12/23 04/13/23 04/13/23 22:59 06:59 14:59 Intake Total 90.832 40.823 Output Total 195 Balance 90.832 -154.177 Intake: Intake, IV Titration 90.832 40.823 Amount Heparin Sod,Pork in 0.45% 90.832 40.823 NaCl 25,000 unit In 0.45 % NaCl 1 250ml.bag @ 18 UNITS/KG/HR 12.247 mls/hr IV .[id number] [facility] Rx#: [id number] Output: Urine 150 Post Void Residual 45 Other: Weight 68.039 kg Patient is awake, comfortable, no acute distress Alert oriented x 3 Examination of the heart S1 and S2 Examination of the lungs bilateral breath sounds are heard Abdomen is soft nontender Examination of lower extremity shows no evidence of edema PRODUCT LEAD exam grossly intact Results - Lab Results Most recent lab results Calcium 8.5 mg/dL (8.4-10.2) 04/13/23 04:10 04/13/23 04:10 04/13/23 04:10 Assessment and Plan Assessment: 1. Acute kidney injury, ATN currently nonoliguric secondary to underlying infection and hypotension. UA shows 1+ protein small blood and WBCs 116. Ultrasound of the kidneys on 04/13/2023 shows right kidney 7.9 cm left kidney 9.9 cm. No hydronephrosis noted. Maintained on IV fluids. 2. Urine tract infection with urine culture currently pending. 3. Chronic kidney disease and Stage III with previous creatinine 1.2 on 03/26/2022. Etiology is likely nephrosclerosis 4. [place] metabolic acidosis associated with acute kidney injury Plan: Switch IV fluids to IV bicarb Continue with IV antibiotics Avoid NSAIDs. Patient received Motrin yesterday. Of repeat labs in a.m. Check postvoid residual Thank you for the consultation. We will continue to follow the patient with you during her hospitalization.
[2023-04-13 11:35] LABS: Glucose,Whole Blood 135 mg/dL (70-110)
[2023-04-13] MEDS: DEXTROSE 5% IN WATER 1,000 ML with SODIUM BICARB (1 MEQ/ML) 150 ML IV SCH (12:12)
--- NOTE | 2023-04-13 12:34 | P.CNPUL ---
History of Present Illness Consult date: 04/13/23 Chief complaint: Fracture pulmonary embolism History of present illness: This is a 78-year-old female patient with known history of recurrent urine tract infection. I was consulted on this patient due to suspicion for pulmonary embolism. In fact this patient came into the hospital havingSymptoms of UTI. She was initially seen by the emergency physician complaining of discomfort, upon urination, and the patient also reported intermittent nausea. She denies having any chest pain. She denies having any shortness of breath. No reported fever or chills. No cough or sputum production. She had dysuria. She has been having 3-4 urine tract infection over the past 5 weeks. In the emergency, a D- dimer was done and the D-dimer turned out to be elevated at 2.43. Based on that, the patient was started on IV heparin. Further workup was done including a Doppler of the lower extremity that showed no evidence of any DVT and a VQ scan that showed low to intermediate probability. The patient denies having any previous history of DVT or pulmonary embolism. She has been active at home. No recent surgeries. Her current creatinine is at 2.35 which is consistent of an acute kidney injury. The patient is unable to undergo a CTA of the chest. She is currently on 3 L of oxygen by nasal cannula and pulse ox around 96 to 99%. No personal or family history of DVT or pulmonary embolism. The patient is currently on IV fluids. She was also started on IV Rocephin. She has seen urology in the past for recurrent UTIs. Review of Systems CONSTITUTIONAL: Denies any recent significant weight loss or weight gain. Admits subjective fevers and chills. Admits generalized fatigue. EYES: Denies change in vision. EARS, NOSE, MOUTH, THROAT: Denies headaches, denies sore throat. CARDIOVASCULAR: Denies chest pain, palpitations or syncopal episodes. RESPIRATORY: Denies shortness of breath, cough, congestion or hemoptysis. GASTROINTESTINAL: Denies change in appetite, abdominal pain, nausea and vomiting, or diarrhea GENITOURINARY: See HPI. MUSKULOSKELETAL: Denies pain, denies swelling. INTEGUMENTARY: Denies rash, denies eczema. NEUROLOGICAL: Denies recent memory loss, no recent seizure activity. PSYCHIATRIC: Denies anxiety, denies depression. HEMATOLOGIC/LYMPHATIC: Denies anemia, denies enlarged lymph node Past Medical History Past Medical History: Diabetes Mellitus, Hyperlipidemia, Hypertension, Osteoarthritis (OA), Thyroid Disorder History of Any Multi-Drug Resistant Organisms: None Reported Past Surgical History: Adenoidectomy, Hysterectomy, Joint Replacement Additional Past Surgical History / Comment(s): bilateral hip replacment; complete hysterectomy; Past Anesthesia/Blood Transfusion Reactions: No Reported Reaction Past Psychological History: Anxiety Smoking Status: Never smoker Past Alcohol Use History: None Reported Past Drug Use History: None Reported - Past Family History Mother Family Medical History: Cancer, Diabetes Mellitus Additional Family Medical History / Comment(s): breast cancer and uterine cancer Father Family Medical History: Cancer Additional Family Medical History / Comment(s): lung cancer Sister(s) Family Medical History: Cancer Additional Family Medical History / Comment(s): lung cancer and brain cancer Medications and Allergies Home Medications Medication Instructions Recorded Confirmed Type Atorvastatin [Lipitor] 20 mg PO DAILY 03/23/18 04/12/23 History Imipramine [Tofranil] 10 mg PO DAILY 03/23/18 04/12/23 History Ferrous Sulfate [Iron] 650 mg PO MOWEFR 04/09/20 04/12/23 History Pantoprazole Sodium [Protonix] 40 mg PO DAILY 04/09/20 04/12/23 History Sertraline [Zoloft] 100 mg PO DAILY 04/09/20 04/12/23 History Metoprolol Tartrate [Lopressor] 25 mg PO BID 06/14/21 04/12/23 History busPIRone HCL 15 mg PO BID 06/14/21 04/12/23 History Aspirin [Adult Low Dose Aspirin EC] 81 mg PO DAILY 04/12/23 04/12/23 History Calcium Carbonate [Calcium] 600 mg PO DAILY 04/12/23 04/12/23 History Cholecalciferol [Vitamin D3 (25 25 mcg PO DAILY 04/12/23 04/12/23 History Mcg = 1000 Iu)] Dapagliflozin Propanediol [Farxiga] 5 mg PO DAILY 04/12/23 04/12/23 History Levothyroxine Sodium [Synthroid] 75 mcg PO DAILY 04/12/23 04/12/23 History Losartan Potassium 100 mg PO DAILY 04/12/23 04/12/23 History Nitrofurantoin Monohyd/M-Cryst 100 mg PO Q12HR 04/12/23 04/12/23 History [Macrobid] Vibegron [Gemtesa] 75 mg PO DAILY 04/12/23 04/12/23 History metFORMIN HCL ER [Glucophage XR] 500 mg PO DAILY 04/12/23 04/12/23 History Allergies Allergy/AdvReac Type Severity Reaction Status Date / Time Sulfa (Sulfonamide Allergy Rash/Hives Verified 04/12/23 21:59 Antibiotics) Physical Exam Vitals: Vital Signs Temp Pulse Pulse Resp BP BP Pulse Ox 04/13/23 11:28 98 18 116/70 96 04/13/23 08:46 98.7 F 103 H 16 117/80 92 L 04/13/23 05:00 75 18 126/72 99 04/13/23 01:30 74 18 102/65 96 04/12/23 22:32 77 16 105/65 95 04/12/23 20:49 99.4 F 86 16 119/74 95 04/12/23 19:24 95 04/12/23 19:20 99 126/70 92 L 04/12/23 18:29 102.6 F H 109 H 18 130/65 90 L Intake and Output 04/12/23 04/13/23 04/13/23 22:59 06:59 14:59 Intake Total 90.832 40.823 Output Total 195 Balance 90.832 -154.177 Intake: Intake, IV Titration 90.832 40.823 Amount Heparin Sod,Pork in 0.45% 90.832 40.823 NaCl 25,000 unit In 0.45 % NaCl 1 250ml.bag @ 18 UNITS/KG/HR 12.247 mls/hr IV .[id number] [facility] Rx#: [id number] Output: Urine 150 Post Void Residual 45 Other: Weight 68.039 kg GENERAL EXAM: Alert, 78-year-old white female, comfortable in no apparent distress. HEAD: Normocephalic and atraumatic EYES: Normal reaction of pupils, equal size. NOSE: Clear with pink turbinates. THROAT: No erythema or exudates. NECK: No masses, no JVD. CHEST: No chest wall deformity. LUNGS: Equal air entry with no crackles, wheeze, rhonchi or dullness. On 2 L/min nasal cannula. SpO2 is 96%. No conversational dyspnea or accessory muscle use.. CVS: S1 and S2 normal with no audible murmur, regular rhythm. No extra heart sounds ABDOMEN: No hepatosplenomegaly, active bowel sounds, no guarding or rigidity. SPINE: No scoliosis or deformity. No CVA tenderness. SKIN: No rashes CENTRAL NERVOUS SYSTEM: No focal deficits, tone is normal in all 4 extremities. EXTREMITIES: There is no peripheral edema, clubbing, or cyanosis. Peripheral pulses are intact. Results - Laboratory Findings CBC and BMP: 04/13/23 04:10 04/13/23 04:10 PT/INR, D-dimer PT 10.7 sec (10.0-12.5) 04/12/23 20:52 INR 1.0 (<1.2) 04/12/23 20:52 D-Dimer 2.43 mg/L FEU (<0.60) H 04/12/23 19:26 Abnormal lab findings: Abnormal Labs 04/12/23 04/12/23 04/12/23 19:09 19:09 19:09 WBC 11.8 H RBC 3.50 L Hgb 10.7 L Hct 33.0 L Plt Count 139 L Neutrophils # 10.3 H Lymphocytes # 0.4 L APTT D-Dimer Sodium 134 L Chloride Carbon Dioxide 19 L BUN 32 H Creatinine 2.20 H Glucose 144 H POC Glucose (mg/dL) Urine Appearance Cloudy H Urine Protein 1+ H Urine Glucose (UA) 4+ H Urine Ketones 1+ H Urine Blood Small H Ur Leukocyte Esterase Large H Urine RBC 14 H Urine WBC 116 H 04/12/23 04/13/23 04/13/23 19:26 04:10 04:10 WBC RBC 2.95 L Hgb 9.3 L Hct 28.3 L Plt Count 112 L Neutrophils # 8.6 H Lymphocytes # APTT 102.3 H* D-Dimer 2.43 H Sodium Chloride Carbon Dioxide BUN Creatinine Glucose POC Glucose (mg/dL) Urine Appearance Urine Protein Urine Glucose (UA) Urine Ketones Urine Blood Ur Leukocyte Esterase Urine RBC Urine WBC 04/13/23 04/13/23 04/13/23 04:10 05:10 11:31 WBC RBC Hgb Hct Plt Count Neutrophils # Lymphocytes # APTT D-Dimer Sodium Chloride 112 H Carbon Dioxide 17 L BUN 35 H Creatinine 2.35 H Glucose 148 H POC Glucose (mg/dL) 129 H 135 H Urine Appearance Urine Protein Urine Glucose (UA) Urine Ketones Urine Blood Ur Leukocyte Esterase Urine RBC Urine WBC - Diagnostic Findings Chest x-ray: image reviewed Assessment and Plan Plan: Urine tract infection, likely gram-negative currently on IV Rocephin. Acute kidney injury secondary to above urine tract infection and possibly intravascular volume depletion and dehydration. The patient will need flow- voids antibiotics and monitoring of the renal function Elevated D-dimer most likely secondary to underlying urine tract infection. No clinically suspicion for pulmonary embolism. Doppler of the lower extremity was negative and the VQ scan was low intermediate in nature. Nevertheless, the patient has no pleurisy or hemoptysis. No significant hypoxemia. No previous history of DVT or pulmonary embolism. She is currently stable Hypoxic respiratory failure related to the above the patient is currently on 2 L of O2 nasal cannula Diabetes mellitus type 2 Hypertension Hypothyroidism Hyperlipidemia Plan Discontinue the IV heparin and put the patient on heparin subcu for DVT prophylaxis. No clinical suspicion for pulmonary embolism. The D-dimer is elevated due to underlying urine tract infection Continue IV antibiotics Continue IV fluids Monitor renal function Provide incentive spirometer Titrate oxygen flow to maintain maintain saturation above 90%. Urology consultation regarding frequent UTIs Will continue to follow
--- NOTE | 2023-04-13 15:01 | P.PN ---
Subjective Progress Note Date: 04/13/23 Hospital course: Patient is a very pleasant 78-year-old female with a past medical history of hypertension, hyperlipidemia, [id number] diabetes mellitus, chronic kidney disease stage IIIb and hypothyroidism. She presented to the emergency department with a chief complaint of increased weakness, chills, and overall not feeling well. She underwent full evaluation in the emergency department. Vital signs upon arrival show blood pressure 130/65, heart rate 109, respiratory rate 18, temp 102.6 F, and SpO2 of 90% on room air. EKG was completed showing sinus tachycardia at 107 bpm with T wave inversion in aVL. Chest x-ray completed negative for acute cardiopulmonary process. Labs completed and reviewed. CBC showing mild leukocytosis with WBC count of 11.8 and bicytopenia with hemoglobin of 10.7 and platelet count of 139. BMP showing mild hyponatremia with sodium of 134 and an acute kidney injury with BUN of 32, creatinine 2.20, and GFR of 21. Liver profile unremarkable. Lipase 77. Troponin 0.015 and proBNP 1920. Urinalysis was positive for infection showing positive protein, glucose, ketones, blood, leukocytes, and 116 WBCs. Influenza A, influenza B, RSV, and COVID PCR were negative. D-dimer was obtained resulting at 2.43. Venous Dopplers were completed on bilateral lower extremities negative for DVTs. Ultrasound renal, kidneys, and bladder negative for acute abnormalities showing no evidence of hydronephrosis or nephrolithiasis reported. Patient was started on high intensity heparin infusion empirically for concerns of potential PE pend ing completion of a VQ scan. She was started on IV antibiotics with Rocephin 1 g every 24 hours for treatment of her UTI with sepsis. Patient was admitted under our services with consultation to pulmonology and urology. Troponins were trended resulting at 0.015, 0.014, and less than 0.012. Physical exam: Vital signs reviewed and stable. General: Nontoxic, no distress and appears stated age. Derm: Skin warm and dry, normal coloration for ethnicity. Head: Atraumatic, normocephalic and symmetric. Eyes: EOMs intact, no lid lag, and anicteric sclera Mouth: no lip lesions, mucus membranes moist Cardiovascular: regular rate and rhythm with normal S1S2, no murmur, positive posterior tibial pulses bilaterally, and cap refill < 2 seconds. Lungs: Respirations even, regular, and unlabored on room air. Lungs CTA bilaterally, no rhonchi, no rales, no wheezing, and no accessory muscle usage. Abdominal: soft, nontender to palpation, no guarding, no appreciable organomegaly Ext: ROM intact. No gross muscle atrophy, scant edema, no contractures Neuro: Speech clear, face symmetrical and CN II-XII grossly intact with no noted focal neuro deficits Psych: Alert and oriented to person, place, time, and situation. Appropriate and pleasant affect. Assessment and Plan of Care: UTI with sepsis E. coli bacteremia Acute kidney injury on stage III chronic kidney disease Non-anion gap metabolic acidosis secondary to JOE Bicytopenia -Patient with sepsis upon arrival with heart rate 107, temp 102.6 F, and WBC count of 11.8. -Follow-up with final blood and urine culture and sensitivity reports. -Continue IV antibiotics with Rocephin 2 g daily. -Infectious disease consulted -Nephrology consulted and placed patient on bicarb infusion -Hold nephrotoxic agents (losartan) -Patient to remain on continuous telemetry monitoring. Acute hypoxic respiratory failure Elevated D-dimer -VQ scan showing low probability for PE, heparin infusion was discontinued -Pulmonology following, initially started patient on heparin infusion secondary to suspicions for PE and discontinuing at this time after VQ scan is negative. -Oxygenation to be administered and titrated as needed to maintain SPO2 equal to or greater than 92% -Continue telemetry monitoring. -Monitor pulse-oximetry -Incentive Spirometry -Echocardiogram to be completed Diabetes mellitus -Hold Glucophage and Farxiga and patient placed on glycemic protocol with NovoLog sliding scale. Hypertension -Losartan was held secondary to JOE. Patient to continue metoprolol 25 mg twice daily. Blood pressures remain stable at this time despite holding antihypertensive medication losartan and is currently 117/80. Hyperlipidemia -Continue daily medication regimen with atorvastatin 20 mg daily. Hypothyroidism -Continue daily medication regimen with levothyroxine 75 mcg daily. Data and imaging reviewed: VQ scan completed and results reviewed showing low probability for pulmonary emboli. Preliminary blood culture results 2 out of 2 sets positive for E. coli, will follow-up on final culture and sensitivity reports. Morning labs reviewed. CBC showing bicytopenia with hemoglobin of 9.3 and platelet count of 112. BMP showing non-anion gap metabolic acidosis with chloride of 112, bicarb 17, anion gap of 8 and slightly worsening renal function with BUN of 35, creatinine 2.35, GFR of 19. Vital signs reviewed and stable. Blood pressure 117/80, heart rate 103, respiratory rate 16, temp 98.7 F, SpO2 of 92% on 3 L. CODE STATUS: Full code DVT prophylaxis: Heparin Anticipated discharge date: Clinical course to determine Anticipated discharge place: Clinical course to determine Patient was seen independently by Nurse Pracitioner. This document was prepared using [email or web address] ([employer]) dictation software. Please allow for errors in bulk tank car unloader, while rare they do occur. Vega Rodriguez NP rendered care for this patient independently, reviewed the findings and plan as documented in the note above. I did not physically speak with or examine the patient on this date. Objective - Vital Signs Vital signs: Vital Signs Temp 99.4 F 04/12/23 20:49 Pulse 75 04/13/23 05:00 Resp 18 04/13/23 05:00 BP 126/72 04/13/23 05:00 Pulse Ox 99 04/13/23 05:00 FiO2 Intake & Output 04/12/23 04/13/23 04/13/23 18:59 06:59 18:59 Intake Total 90.832 0 Balance 90.832 0 Weight 68.039 kg Intake: Intake, IV Titration 90.832 0 Amount Heparin Sod,Pork in 0.45% 90.832 0 NaCl 25,000 unit In 0.45 % NaCl 1 250ml.bag @ 18 UNITS/KG/HR 12.247 mls/hr IV .[id number] [facility] Rx#: [id number] - Labs CBC & Chem 7: 04/14/23 07:05 04/14/23 07:05 Labs: Abnormal Lab Results - Last 24 Hours (Table) 04/12/23 04/12/23 04/12/23 Range/Units 19:09 19:09 19:09 WBC 11.8 H (3.8-10.6) k/uL RBC 3.50 L (3.80-5.40) m/uL Hgb 10.7 L (11.4-16.0) gm/dL Hct 33.0 L (34.0-46.0) % Plt Count 139 L (150-450) k/uL Neutrophils # 10.3 H (1.3-7.7) k/uL Lymphocytes # 0.4 L (1.0-4.8) k/uL APTT (22.0-30.0) sec D-Dimer (<0.60) mg/L FEU Sodium 134 L (137-145) mmol/L Chloride (98-107) mmol/L Carbon Dioxide 19 L (22-30) mmol/L BUN 32 H (7-17) mg/dL Creatinine 2.20 H (0.52-1.04) mg/dL Glucose 144 H (74-99) mg/dL POC Glucose (mg/dL) (70-110) mg/dL Urine Appearance Cloudy H (Clear) Urine Protein 1+ H (Negative) Urine Glucose (UA) 4+ H (Negative) Urine Ketones 1+ H (Negative) Urine Blood Small H (Negative) Ur Leukocyte Esterase Large H (Negative) Urine RBC 14 H (0-5) /hpf Urine WBC 116 H (0-5) /hpf 04/12/23 04/13/23 04/13/23 Range/Units 19:26 04:10 04:10 WBC (3.8-10.6) k/uL RBC 2.95 L (3.80-5.40) m/uL Hgb 9.3 L (11.4-16.0) gm/dL Hct 28.3 L (34.0-46.0) % Plt Count 112 L (150-450) k/uL Neutrophils # 8.6 H (1.3-7.7) k/uL Lymphocytes # (1.0-4.8) k/uL APTT 102.3 H* (22.0-30.0) sec D-Dimer 2.43 H (<0.60) mg/L FEU Sodium (137-145) mmol/L Chloride (98-107) mmol/L Carbon Dioxide (22-30) mmol/L BUN (7-17) mg/dL Creatinine (0.52-1.04) mg/dL Glucose (74-99) mg/dL POC Glucose (mg/dL) (70-110) mg/dL Urine Appearance (Clear) Urine Protein (Negative) Urine Glucose (UA) (Negative) Urine Ketones (Negative) Urine Blood (Negative) Ur Leukocyte Esterase (Negative) Urine RBC (0-5) /hpf Urine WBC (0-5) /hpf 04/13/23 04/13/23 Range/Units 04:10 05:10 WBC (3.8-10.6) k/uL RBC (3.80-5.40) m/uL Hgb (11.4-16.0) gm/dL Hct (34.0-46.0) % Plt Count (150-450) k/uL Neutrophils # (1.3-7.7) k/uL Lymphocytes # (1.0-4.8) k/uL APTT (22.0-30.0) sec D-Dimer (<0.60) mg/L FEU Sodium (137-145) mmol/L Chloride 112 H (98-107) mmol/L Carbon Dioxide 17 L (22-30) mmol/L BUN 35 H (7-17) mg/dL Creatinine 2.35 H (0.52-1.04) mg/dL Glucose 148 H (74-99) mg/dL POC Glucose (mg/dL) 129 H (70-110) mg/dL Urine Appearance (Clear) Urine Protein (Negative) Urine Glucose (UA) (Negative) Urine Ketones (Negative) Urine Blood (Negative) Ur Leukocyte Esterase (Negative) Urine RBC (0-5) /hpf Urine WBC (0-5) /hpf
[2023-04-13] MEDS: ACETAMINOPHEN TAB 325 MG TAB PO PRN (15:30)
[2023-04-13] MEDS: HEPARIN SODIUM,PORCINE 5,000 UNIT/ML 1 ML VIAL SQ SCH (15:31)
[2023-04-13 16:53] LABS: Glucose,Whole Blood 191 mg/dL (70-110)
--- NOTE | 2023-04-13 18:43 | P.GSCN ---
History of Present Illness Consult date: 04/13/23 Reason for Consult: Recurrent UTI Requesting physician: Toni Mensah History of present illness: The patient is a 78-year-old white female who has been treated for recurrent UTIs. She experiences gross hematuria every several months, typically painless. She also reports mixed urinary incontinence, which requires the use of several pads daily. The urge component is predominant. Oxybutynin and trial for now improve the incontinence, but she stopped these due to concern of renal damage. She has recently been treated with Bactrim and Keflex. She was seen by me in the office April 10, 2023. At that time, she denied dysuria. Urinalysis was consistent with a UTI, and a urine culture was sent. She was not started on antibiotics as she was asymptomatic. She was verified to be emptying her bladder completely. She presented to the ER while feeling worse, though she is a vague historian and cannot articulate in what way she felt worse. She was found to be febrile and was subsequently admitted. She is receiving IV antibiotics. Review of Systems - Constitutional Reports chills, Reports fever, Reports weakness - Gastrointestinal Denies abdominal pain, Denies nausea, Denies vomiting - Genitourinary Genitourinary: Reports dysuria Past Medical History Past Medical History: Diabetes Mellitus, Hyperlipidemia, Hypertension, Osteoarthritis (OA), Thyroid Disorder History of Any Multi-Drug Resistant Organisms: None Reported Past Surgical History: Adenoidectomy, Hysterectomy, Joint Replacement Additional Past Surgical History / Comment(s): bilateral hip replacment; complete hysterectomy; Past Anesthesia/Blood Transfusion Reactions: No Reported Reaction Past Psychological History: Anxiety Smoking Status: Never smoker Past Alcohol Use History: None Reported Past Drug Use History: None Reported - Past Family History Mother Family Medical History: Cancer, Diabetes Mellitus Additional Family Medical History / Comment(s): breast cancer and uterine cancer Father Family Medical History: Cancer Additional Family Medical History / Comment(s): lung cancer Sister(s) Family Medical History: Cancer Additional Family Medical History / Comment(s): lung cancer and brain cancer Medications and Allergies Home Medications Medication Instructions Recorded Confirmed Type Atorvastatin [Lipitor] 20 mg PO DAILY 03/23/18 04/12/23 History Imipramine [Tofranil] 10 mg PO DAILY 03/23/18 04/12/23 History Ferrous Sulfate [Iron] 650 mg PO MOWEFR 04/09/20 04/12/23 History Pantoprazole Sodium [Protonix] 40 mg PO DAILY 04/09/20 04/12/23 History Sertraline [Zoloft] 100 mg PO DAILY 04/09/20 04/12/23 History Metoprolol Tartrate [Lopressor] 25 mg PO BID 06/14/21 04/12/23 History busPIRone HCL 15 mg PO BID 06/14/21 04/12/23 History Aspirin [Adult Low Dose Aspirin EC] 81 mg PO DAILY 04/12/23 04/12/23 History Calcium Carbonate [Calcium] 600 mg PO DAILY 04/12/23 04/12/23 History Cholecalciferol [Vitamin D3 (25 25 mcg PO DAILY 04/12/23 04/12/23 History Mcg = 1000 Iu)] Dapagliflozin Propanediol [Farxiga] 5 mg PO DAILY 04/12/23 04/12/23 History Levothyroxine Sodium [Synthroid] 75 mcg PO DAILY 04/12/23 04/12/23 History Losartan Potassium 100 mg PO DAILY 04/12/23 04/12/23 History Nitrofurantoin Monohyd/M-Cryst 100 mg PO Q12HR 04/12/23 04/12/23 History [Macrobid] Vibegron [Gemtesa] 75 mg PO DAILY 04/12/23 04/12/23 History metFORMIN HCL ER [Glucophage XR] 500 mg PO DAILY 04/12/23 04/12/23 History Allergies Allergy/AdvReac Type Severity Reaction Status Date / Time Sulfa (Sulfonamide Allergy Rash/Hives Verified 04/12/23 21:59 Antibiotics) Surgical - Exam Vital Signs Temp Pulse Resp BP Pulse Ox 102.6 F H 109 H 18 130/65 90 L 04/12/23 18:29 04/12/23 18:29 04/12/23 18:29 04/12/23 18:29 04/12/23 18:29 - General well developed, well nourished, no distress - Neck no masses, trachea midline - Respiratory normal respiratory effort - Abdomen Abdomen: soft, non tender, no guarding, no rigid, no rebound - Psychiatric oriented to time, oriented to person, oriented to place, speech is normal, memory intact Results - Labs 04/13/23 04:10 04/13/23 04:10 Abnormal Lab Results - Last 24 Hours (Table) 04/12/23 04/12/23 04/12/23 Range/Units 19:09 19:09 19:09 WBC 11.8 H (3.8-10.6) k/uL RBC 3.50 L (3.80-5.40) m/uL Hgb 10.7 L (11.4-16.0) gm/dL Hct 33.0 L (34.0-46.0) % Plt Count 139 L (150-450) k/uL Neutrophils # 10.3 H (1.3-7.7) k/uL Lymphocytes # 0.4 L (1.0-4.8) k/uL APTT (22.0-30.0) sec D-Dimer (<0.60) mg/L FEU Sodium 134 L (137-145) mmol/L Chloride (98-107) mmol/L Carbon Dioxide 19 L (22-30) mmol/L BUN 32 H (7-17) mg/dL Creatinine 2.20 H (0.52-1.04) mg/dL Glucose 144 H (74-99) mg/dL POC Glucose (mg/dL) (70-110) mg/dL Urine Appearance Cloudy H (Clear) Urine Protein 1+ H (Negative) Urine Glucose (UA) 4+ H (Negative) Urine Ketones 1+ H (Negative) Urine Blood Small H (Negative) Ur Leukocyte Esterase Large H (Negative) Urine RBC 14 H (0-5) /hpf Urine WBC 116 H (0-5) /hpf 04/12/23 04/13/23 04/13/23 Range/Units 19:26 04:10 04:10 WBC (3.8-10.6) k/uL RBC 2.95 L (3.80-5.40) m/uL Hgb 9.3 L (11.4-16.0) gm/dL Hct 28.3 L (34.0-46.0) % Plt Count 112 L (150-450) k/uL Neutrophils # 8.6 H (1.3-7.7) k/uL Lymphocytes # (1.0-4.8) k/uL APTT 102.3 H* (22.0-30.0) sec D-Dimer 2.43 H (<0.60) mg/L FEU Sodium (137-145) mmol/L Chloride (98-107) mmol/L Carbon Dioxide (22-30) mmol/L BUN (7-17) mg/dL Creatinine (0.52-1.04) mg/dL Glucose (74-99) mg/dL POC Glucose (mg/dL) (70-110) mg/dL Urine Appearance (Clear) Urine Protein (Negative) Urine Glucose (UA) (Negative) Urine Ketones (Negative) Urine Blood (Negative) Ur Leukocyte Esterase (Negative) Urine RBC (0-5) /hpf Urine WBC (0-5) /hpf 04/13/23 04/13/23 Range/Units 04:10 05:10 WBC (3.8-10.6) k/uL RBC (3.80-5.40) m/uL Hgb (11.4-16.0) gm/dL Hct (34.0-46.0) % Plt Count (150-450) k/uL Neutrophils # (1.3-7.7) k/uL Lymphocytes # (1.0-4.8) k/uL APTT (22.0-30.0) sec D-Dimer (<0.60) mg/L FEU Sodium (137-145) mmol/L Chloride 112 H (98-107) mmol/L Carbon Dioxide 17 L (22-30) mmol/L BUN 35 H (7-17) mg/dL Creatinine 2.35 H (0.52-1.04) mg/dL Glucose 148 H (74-99) mg/dL POC Glucose (mg/dL) 129 H (70-110) mg/dL Urine Appearance (Clear) Urine Protein (Negative) Urine Glucose (UA) (Negative) Urine Ketones (Negative) Urine Blood (Negative) Ur Leukocyte Esterase (Negative) Urine RBC (0-5) /hpf Urine WBC (0-5) /hpf Diabetes panel 04/12/23 04/13/23 Range/Units 19:09 04:10 Sodium 134 L 137 (137-145) mmol/L Potassium 4.3 4.2 (3.5-5.1) mmol/L Chloride 106 112 H (98-107) mmol/L Carbon Dioxide 19 L 17 L (22-30) mmol/L BUN 32 H 35 H (7-17) mg/dL Creatinine 2.20 H 2.35 H (0.52-1.04) mg/dL Glucose 144 H 148 H (74-99) mg/dL Calcium 8.7 8.5 (8.4-10.2) mg/dL AST 28 (14-36) U/L ALT 17 (4-34) U/L Alkaline Phosphatase 123 (38-126) U/L Total Protein 6.5 (6.3-8.2) g/dL Albumin 3.9 (3.5-5.0) g/dL Calcium panel 04/12/23 04/13/23 Range/Units 19:09 04:10 Calcium 8.7 8.5 (8.4-10.2) mg/dL Albumin 3.9 (3.5-5.0) g/dL Pituitary panel 04/12/23 04/13/23 Range/Units 19:09 04:10 Sodium 134 L 137 (137-145) mmol/L Potassium 4.3 4.2 (3.5-5.1) mmol/L Chloride 106 112 H (98-107) mmol/L Carbon Dioxide 19 L 17 L (22-30) mmol/L BUN 32 H 35 H (7-17) mg/dL Creatinine 2.20 H 2.35 H (0.52-1.04) mg/dL Glucose 144 H 148 H (74-99) mg/dL Calcium 8.7 8.5 (8.4-10.2) mg/dL Adrenal panel 04/12/23 04/13/23 Range/Units 19:09 04:10 Sodium 134 L 137 (137-145) mmol/L Potassium 4.3 4.2 (3.5-5.1) mmol/L Chloride 106 112 H (98-107) mmol/L Carbon Dioxide 19 L 17 L (22-30) mmol/L BUN 32 H 35 H (7-17) mg/dL Creatinine 2.20 H 2.35 H (0.52-1.04) mg/dL Glucose 144 H 148 H (74-99) mg/dL Calcium 8.7 8.5 (8.4-10.2) mg/dL Total Bilirubin 0.7 (0.2-1.3) mg/dL AST 28 (14-36) U/L ALT 17 (4-34) U/L Alkaline Phosphatase 123 (38-126) U/L Total Protein 6.5 (6.3-8.2) g/dL Albumin 3.9 (3.5-5.0) g/dL - Imaging US - kidney/bladder: report reviewed, image reviewed Assessment and Plan Assessment: The urine culture sent April 10 shows E. coli, sensitive to most antibiotics tested, including ceftriaxone. Blood cultures obtained yesterday at the time of admission show E. coli. (1) UTI (urinary tract infection) Current Visit: Yes Status: Acute Code(s): N39.0 - URINARY TRACT INFECTION, SITE NOT SPECIFIED SNOMED Code(s): 07282546 Plan: Continue IV antibiotics. Will obtain urine culture results from the past 2 years. I did discuss with the patient means of UTI prevention, such as the use of Estrace vaginal cream. Depending on the urine culture results, consideration will also be given to treatment with methenamine. Time with Patient: Greater than 30
[2023-04-13 20:15] LABS: Glucose,Whole Blood 154 mg/dL (70-110)
--- NOTE | 2023-04-13 22:17 | P.CONS ---
History of Present Illness - Reason for Consult Consult date: 04/13/23 Bacteremia Requesting physician: Vega Rodriguez - Chief Complaint Fever with rigors and chills x 2 days - History of Present Illness Patient is a 78-year-old female with a past medical history significant for diabetes mellitus hypertension hyperlipidemia osteoarthritis history of bilateral hip replacement presenting to the ER for evaluation of fever and chills patient mention her symptom has been going on for a few weeks and has been diagnosed with a UTI in the outpatient setting and has been treated with 2 different antibiotic therapy she remember one of them was Keflex but did not remember the other 1 patient significantly get worse with rigors and chills also felt nauseated and episode of vomiting denies any headache or URI symptoms no chest pain shortness of breath or cough did have some urinary frequency and burning but no suprapubic or flank pain patient on presentation to the hospital did have a fever of 102 F patient was tachycardic but not hypotensive mildly hypoxic requiring supplemental oxygen patient did have a white count of 11.8 with a left shift BUN/creatinine has been elevated liver isms are normal amylase lipase was normal urine was positive influenza was negative patient did have a chest x-ray no acute cardiopulmonary disease process, patient did have abdominal bladder ultrasound no distal abnormality seen blood cultures came back positive with gram-negative bacilli probably this infectious disease consultation Review of Systems Positive point and negatives has been mentioned in the HPI, complete review of systems was performed and all other systems are negative Past Medical History Past Medical History: Diabetes Mellitus, Hyperlipidemia, Hypertension, Osteoarthritis (OA), Thyroid Disorder History of Any Multi-Drug Resistant Organisms: None Reported Past Surgical History: Adenoidectomy, Hysterectomy, Joint Replacement Additional Past Surgical History / Comment(s): bilateral hip replacment; complete hysterectomy; Past Anesthesia/Blood Transfusion Reactions: No Reported Reaction Past Psychological History: Anxiety Smoking Status: Never smoker Past Alcohol Use History: None Reported Past Drug Use History: None Reported - Past Family History Mother Family Medical History: Cancer, Diabetes Mellitus Additional Family Medical History / Comment(s): breast cancer and uterine cancer Father Family Medical History: Cancer Additional Family Medical History / Comment(s): lung cancer Sister(s) Family Medical History: Cancer Additional Family Medical History / Comment(s): lung cancer and brain cancer Medications and Allergies Home Medications Medication Instructions Recorded Confirmed Type Atorvastatin [Lipitor] 20 mg PO DAILY 03/23/18 04/12/23 History Imipramine [Tofranil] 10 mg PO DAILY 03/23/18 04/12/23 History Ferrous Sulfate [Iron] 650 mg PO MOWEFR 04/09/20 04/12/23 History Pantoprazole Sodium [Protonix] 40 mg PO DAILY 04/09/20 04/12/23 History Sertraline [Zoloft] 100 mg PO DAILY 04/09/20 04/12/23 History busPIRone HCL 15 mg PO BID 06/14/21 04/12/23 History Aspirin [Adult Low Dose Aspirin EC] 81 mg PO DAILY 04/12/23 04/12/23 History Calcium Carbonate [Calcium] 600 mg PO DAILY 04/12/23 04/12/23 History Cholecalciferol [Vitamin D3 (25 25 mcg PO DAILY 04/12/23 04/12/23 History Mcg = 1000 Iu)] Levothyroxine Sodium [Synthroid] 75 mcg PO DAILY 04/12/23 04/12/23 History Nitrofurantoin Monohyd/M-Cryst 100 mg PO Q12HR 04/12/23 04/12/23 History [Macrobid] Vibegron [Gemtesa] 75 mg PO DAILY 04/12/23 04/12/23 History metFORMIN HCL ER [Glucophage XR] 500 mg PO DAILY 04/12/23 04/12/23 History Metoprolol Tartrate [Lopressor] 50 mg PO BID 90 Days #180 tab 04/17/23 Rx amLODIPine [Norvasc] 5 mg PO DAILY 90 Days #90 tab 04/17/23 Rx cefUROXime axetiL [Ceftin] 500 mg PO BID 10 Days #20 tab 04/17/23 Rx Allergies Allergy/AdvReac Type Severity Reaction Status Date / Time Sulfa (Sulfonamide Allergy Rash/Hives Verified 04/12/23 21:59 Antibiotics) Physical Exam Vitals: Vital Signs Temp Pulse Pulse Resp BP BP Pulse Ox 04/13/23 12:00 98.1 F 77 18 114/72 100 04/13/23 11:28 98 18 116/70 96 04/13/23 08:46 98.7 F 103 H 16 117/80 92 L 04/13/23 05:00 75 18 126/72 99 04/13/23 01:30 74 18 102/65 96 04/12/23 22:32 77 16 105/65 95 04/12/23 20:49 99.4 F 86 16 119/74 95 04/12/23 19:24 95 04/12/23 19:20 99 126/70 92 L 04/12/23 18:29 102.6 F H 109 H 18 130/65 90 L Intake and Output 04/13/23 04/13/23 04/13/23 06:59 14:59 22:59 Intake Total 90.832 40.823 Output Total 195 Balance 90.832 -154.177 Intake: Intake, IV Titration 90.832 40.823 Amount Heparin Sod,Pork in 0.45% 90.832 40.823 NaCl 25,000 unit In 0.45 % NaCl 1 250ml.bag @ 18 UNITS/KG/HR 12.247 mls/hr IV .[id number] [facility] Rx#: [id number] Output: Urine 150 Post Void Residual 45 Other: Voiding Method Toilet Weight 68.039 kg GENERAL DESCRIPTION: Elderly female lying in bed, no distress. No tachypnea or accessory muscle of respiration use. HEENT: Shows Pallor , no scleral icterus. Oral mucous membrane is dry. No pharyngeal erythema or thrush NECK: Trachea central, no thyromegaly. LUNGS: Unlabored breathing. Clear to auscultation anteriorly. No wheeze or crackle. HEART: S1, S2, regular rate and rhythm. No loud murmur ABDOMEN: Soft, no tenderness , guarding or rigidity, no organomegaly EXTREMITIES: No edema of feet. SKIN: No rash, no masses palpable. NEUROLOGICAL: The patient is awake, alert, oriented x3, mood and affect normal. Results CBC & Chem 7: 04/17/23 06:14 04/17/23 06:14 Labs: Abnormal Lab Results - Last 24 Hours (Table) 04/12/23 04/12/23 04/12/23 Range/Units 19:09 19:09 19:09 WBC 11.8 H (3.8-10.6) k/uL RBC 3.50 L (3.80-5.40) m/uL Hgb 10.7 L (11.4-16.0) gm/dL Hct 33.0 L (34.0-46.0) % Plt Count 139 L (150-450) k/uL Neutrophils # 10.3 H (1.3-7.7) k/uL Lymphocytes # 0.4 L (1.0-4.8) k/uL APTT (22.0-30.0) sec D-Dimer (<0.60) mg/L FEU Sodium 134 L (137-145) mmol/L Chloride (98-107) mmol/L Carbon Dioxide 19 L (22-30) mmol/L BUN 32 H (7-17) mg/dL Creatinine 2.20 H (0.52-1.04) mg/dL Glucose 144 H (74-99) mg/dL POC Glucose (mg/dL) (70-110) mg/dL Urine Appearance Cloudy H (Clear) Urine Protein 1+ H (Negative) Urine Glucose (UA) 4+ H (Negative) Urine Ketones 1+ H (Negative) Urine Blood Small H (Negative) Ur Leukocyte Esterase Large H (Negative) Urine RBC 14 H (0-5) /hpf Urine WBC 116 H (0-5) /hpf 04/12/23 04/13/23 04/13/23 Range/Units 19:26 04:10 04:10 WBC (3.8-10.6) k/uL RBC 2.95 L (3.80-5.40) m/uL Hgb 9.3 L (11.4-16.0) gm/dL Hct 28.3 L (34.0-46.0) % Plt Count 112 L (150-450) k/uL Neutrophils # 8.6 H (1.3-7.7) k/uL Lymphocytes # (1.0-4.8) k/uL APTT 102.3 H* (22.0-30.0) sec D-Dimer 2.43 H (<0.60) mg/L FEU Sodium (137-145) mmol/L Chloride (98-107) mmol/L Carbon Dioxide (22-30) mmol/L BUN (7-17) mg/dL Creatinine (0.52-1.04) mg/dL Glucose (74-99) mg/dL POC Glucose (mg/dL) (70-110) mg/dL Urine Appearance (Clear) Urine Protein (Negative) Urine Glucose (UA) (Negative) Urine Ketones (Negative) Urine Blood (Negative) Ur Leukocyte Esterase (Negative) Urine RBC (0-5) /hpf Urine WBC (0-5) /hpf 04/13/23 04/13/23 04/13/23 Range/Units 04:10 05:10 11:31 WBC (3.8-10.6) k/uL RBC (3.80-5.40) m/uL Hgb (11.4-16.0) gm/dL Hct (34.0-46.0) % Plt Count (150-450) k/uL Neutrophils # (1.3-7.7) k/uL Lymphocytes # (1.0-4.8) k/uL APTT (22.0-30.0) sec D-Dimer (<0.60) mg/L FEU Sodium (137-145) mmol/L Chloride 112 H (98-107) mmol/L Carbon Dioxide 17 L (22-30) mmol/L BUN 35 H (7-17) mg/dL Creatinine 2.35 H (0.52-1.04) mg/dL Glucose 148 H (74-99) mg/dL POC Glucose (mg/dL) 129 H 135 H (70-110) mg/dL Urine Appearance (Clear) Urine Protein (Negative) Urine Glucose (UA) (Negative) Urine Ketones (Negative) Urine Blood (Negative) Ur Leukocyte Esterase (Negative) Urine RBC (0-5) /hpf Urine WBC (0-5) /hpf 04/13/23 Range/Units 12:26 WBC (3.8-10.6) k/uL RBC (3.80-5.40) m/uL Hgb (11.4-16.0) gm/dL Hct (34.0-46.0) % Plt Count (150-450) k/uL Neutrophils # (1.3-7.7) k/uL Lymphocytes # (1.0-4.8) k/uL APTT 34.0 H (22.0-30.0) sec D-Dimer (<0.60) mg/L FEU Sodium (137-145) mmol/L Chloride (98-107) mmol/L Carbon Dioxide (22-30) mmol/L BUN (7-17) mg/dL Creatinine (0.52-1.04) mg/dL Glucose (74-99) mg/dL POC Glucose (mg/dL) (70-110) mg/dL Urine Appearance (Clear) Urine Protein (Negative) Urine Glucose (UA) (Negative) Urine Ketones (Negative) Urine Blood (Negative) Ur Leukocyte Esterase (Negative) Urine RBC (0-5) /hpf Urine WBC (0-5) /hpf Microbiology - Last 24 Hours (Table) 04/12/23 18:55 Blood Culture Gram Stain - Preliminary Blood 04/12/23 19:10 Blood Culture Gram Stain - Preliminary Blood Assessment and Plan (1) Sepsis Current Visit: Yes Status: Acute Code(s): A41.9 - SEPSIS, UNSPECIFIED ORGANISM SNOMED Code(s): 12420238 (2) Allergy to sulfa drugs Current Visit: Yes Status: Acute Code(s): Z88.2 - ALLERGY STATUS TO SULFONAMIDES SNOMED Code(s): 32017962 (3) Gram-negative bacteremia Current Visit: Yes Status: Acute Code(s): R78.81 - BACTEREMIA SNOMED Code(s): 939604561651 (4) UTI (urinary tract infection) Current Visit: Yes Status: Acute Code(s): N39.0 - URINARY TRACT INFECTION, SITE NOT SPECIFIED SNOMED Code(s): 47177143 Plan: 1patient presented hospital with sepsis in this patient who did have a fever tachycardia elevated white count patient did have urinary symptoms source likely pyelonephritis did have elevated creatinine but ultrasound did not show any obstructive uropathy 4-[id number] bacteremia source likely urinary 3-sulfa allergy 4-Rocephin 2 g daily while waiting for the culture to finalize We will follow on clinical condition and cultures to further adjust medication if needed Thank you for this consultation we will follow the patient along with you Dictation was produced using SHAPE dictation software. please excuse any grammatical, word or spelling errors. Time with Patient: Greater than 30
[2023-04-14 06:14] LABS: Glucose,Whole Blood 338 mg/dL (70-110)
--- NOTE | 2023-04-14 06:59 | CA ---
Transthoracic Echo Report Name: Netta Denise Age: 78 Gender: F : 1945 Exam Date: 04/13/2023 12:59 Exam Location: [place] [facility] Ht (in): 64 Wt (lb): 150 Ordering Physician: Nas Briones MD Attending/Referring Phys: Wash Worker ML Procedure CPT: Indications: Hypoxia Cardiac Hx: Technical Quality: Fair Contrast 1: Total Dose (mL): Contrast 2: Total Dose (mL): MEASUREMENTS (Male / Female) Normal Values 2D ECHO LV Diastolic Diameter PLAX 4.7 cm 4.2 - 5.9 / 3.9 - 5.3 cm LV Systolic Diameter PLAX 3.6 cm IVS Diastolic Thickness 1.3 cm 0.6 - 1.0 / 0.6 - 0.9 cm LVPW Diastolic Thickness 0.7 cm 0.6 - 1.0 / 0.6 - 0.9 cm LV Relative Wall Thickness 0.4 Aortic Root Diameter 3.3 cm LA Systolic Diameter LX 4.1 cm 3.0 - 4.0 / 2.7 - 3.8 cm DOPPLER AV Peak Velocity 143.9 cm/s AV Peak Gradient 8.3 mmHg AV Mean Velocity 103.4 cm/s AV Mean Gradient 4.6 mmHg AV Velocity Time Integral 24.8 cm LVOT Peak Velocity 92.6 cm/s LVOT Peak Gradient 3.4 mmHg LVOT Velocity Time Integral 18.1 cm Mitral E Point Velocity 74.0 cm/s Mitral A Point Velocity 107.9 cm/s Mitral E to A Ratio 0.7 MV Deceleration Time 151.4 ms MV E' Velocity 7.1 cm/s Mitral E to MV E' Ratio 10.5 FINDINGS Left Ventricle Left ventricular ejection fraction is estimated at 55-60 %.normal left ventricular wall motion. Left ventricular cavity size normal. Mildly increased left ventricular wall thickness. Right Ventricle Normal right ventricular size and function. Right Atrium Right atrium not well visualized. Left Atrium Left atrial size at the upper limits of normal. Mitral Valve Mild mitral regurgitation.mitral valve thickened. Aortic Valve Aortic valve not well visualized. Tricuspid Valve Structurally normal tricuspid valve. Pulmonic Valve Pulmonic valve not well visualized. Pericardium No pericardial effusion. Aorta Normal size aortic root and proximal ascending aorta. CONCLUSIONS Technically limited study. 1. Normal left ventricular size and systolic function 2. Limited Doppler study with mild mitral regurgitation Previewed by: Dr. Jeferson Christiansen MD (Electronically Signed) Final Date: 14 April 2023 06:59
[2023-04-14] MEDS: FERROUS SULFATE 325 MG TAB PO SCH (07:56)
[2023-04-14 08:33] LABS: HCT 30.8 % (34.0-46.0); HGB 9.8 gm/dL (11.4-16.0); Hypochromasia Slight; MCH 30.5 pg (25.0-35.0); MCHC 31.9 g/dL (31.0-37.0); MCV 95.5 fL (80.0-100.0); Mean Platelet Volume 9.4; Platelet Count 131 k/uL (150-450); RBC 3.22 m/uL (3.80-5.40); RDW 14.7 % (11.5-15.5); WBC 6.7 k/uL (3.8-10.6)
[2023-04-14 08:45] LABS: ALT 15 U/L (4-34); AST 25 U/L (14-36); African American GFR (CKD) 29 (>60 ml/min/1.73 sqM); Albumin 3.4 g/dL (3.5-5.0); Alkaline Phosphatase 93 U/L (38-126); Anion Gap 8 mmol/L; Blood Urea Nitrogen 23 mg/dL (7-17); Calcium 8.3 mg/dL (8.4-10.2); Carbon Dioxide 26 mmol/L (22-30); Chloride 103 mmol/L (98-107); Glucose 119 mg/dL (74-99); Non-African American GFR(CKD) 25 (>60 ml/min/1.73 sqM); Potassium 3.5 mmol/L (3.5-5.1); Sodium 137 mmol/L (137-145); Total Bilirubin 0.4 mg/dL (0.2-1.3); Total Protein 5.9 g/dL (6.3-8.2)
--- NOTE | 2023-04-14 08:47 | P.PN ---
Subjective Progress Note Date: 04/14/23 Principal diagnosis: UTI with sepsis Patient's recent urine culture shows E. coli, and blood cultures also show E. coli. When the blood cultures are complete, it will then be possible to determine whether or not it is the same strain of E. coli. I expect that it is. She states that she is feeling much better today. Objective - Vital Signs Vital signs: Vital Signs Temp 99 F 04/14/23 07:50 Pulse 101 H 04/14/23 07:50 Resp 16 04/14/23 07:50 BP 103/71 04/14/23 07:50 Pulse Ox 95 04/14/23 07:50 FiO2 Intake & Output 04/13/23 04/14/23 04/14/23 18:59 06:59 18:59 Intake Total 40.823 Output Total 595 800 150 Balance -554.177 -800 -150 Weight 68.039 kg Intake: Intake, IV Titration 40.823 Amount Heparin Sod,Pork in 0.45% 40.823 NaCl 25,000 unit In 0.45 % NaCl 1 250ml.bag @ 18 UNITS/KG/HR 12.247 mls/hr IV .[id number] [facility] Rx#: [id number] Output: Urine 550 800 150 Post Void Residual 45 Other: Voiding Method Toilet Toilet - Constitutional General appearance: Present: average body habitus, no acute distress - Gastrointestinal General gastrointestinal: Present: soft. Absent: tenderness - Psychiatric Psychiatric: Present: A&O x's 3 - Labs CBC & Chem 7: 04/14/23 07:05 04/13/23 04:10 Labs: Abnormal Lab Results - Last 24 Hours (Table) 04/13/23 04/13/23 04/13/23 Range/Units 11:31 12:26 16:49 RBC (3.80-5.40) m/uL Hgb (11.4-16.0) gm/dL Hct (34.0-46.0) % Plt Count (150-450) k/uL APTT 34.0 H (22.0-30.0) sec POC Glucose (mg/dL) 135 H 191 H (70-110) mg/dL 04/13/23 04/14/23 04/14/23 Range/Units 20:13 06:13 07:05 RBC 3.22 L (3.80-5.40) m/uL Hgb 9.8 L (11.4-16.0) gm/dL Hct 30.8 L (34.0-46.0) % Plt Count 131 L (150-450) k/uL APTT (22.0-30.0) sec POC Glucose (mg/dL) 154 H 338 H (70-110) mg/dL Microbiology - Last 24 Hours (Table) 04/12/23 19:10 Blood Culture Gram Stain - Preliminary Blood Blood Culture - Preliminary Gram Neg Bacilli 04/12/23 18:55 Blood Culture Gram Stain - Preliminary Blood Blood Culture - Preliminary Gram Neg Bacilli 04/12/23 19:09 Urine Culture - Final Urine,Voided Assessment and Plan Assessment: The urine culture sent April 10 shows E. coli, sensitive to most antibiotics tested, including ceftriaxone. Blood cultures obtained yesterday at the time of admission show E. coli. (1) UTI (urinary tract infection) Current Visit: Yes Status: Acute Code(s): N39.0 - URINARY TRACT INFECTION, SITE NOT SPECIFIED SNOMED Code(s): 22750838 Plan: - Continue ceftriaxone. - Will obtain urine culture results from the past 2 years. - I discussed with the patient means of UTI prevention, such as the use of Estrace vaginal cream. Depending on the urine culture results, consideration will also be given to treatment with methenamine.
--- NOTE | 2023-04-14 10:34 | P.PN ---
Subjective Patient is seen for follow-up for acute kidney injury. Urine culture and blood cultures are growing E. coli. Overall patient states she is feeling better. Tolerating oral intake Serum creatinine decreased to 1.9 from 2.3 yesterday. 24-hour urine output at 135 0 mL. No urine retention. Postvoid residual was 45 mL. Objective - Vital Signs Vital signs: Vital Signs Temp 99 F 04/14/23 07:50 Pulse 101 H 04/14/23 07:50 Resp 16 04/14/23 07:50 BP 103/71 04/14/23 07:50 Pulse Ox 95 04/14/23 07:50 FiO2 Intake & Output 04/13/23 04/14/23 04/14/23 18:59 06:59 18:59 Intake Total 40.823 Output Total 595 800 150 Balance -554.177 -800 -150 Weight 68.039 kg Intake: Intake, IV Titration 40.823 Amount Heparin Sod,Pork in 0.45% 40.823 NaCl 25,000 unit In 0.45 % NaCl 1 250ml.bag @ 18 UNITS/KG/HR 12.247 mls/hr IV .[id number] [facility] Rx#: [id number] Output: Urine 550 800 150 Post Void Residual 45 Other: Voiding Method Toilet Toilet Toilet - Exam Patient is awake, comfortable, no acute distress Alert oriented x 3 Examination of the heart S1 and S2 Examination of the lungs bilateral breath sounds are heard Abdomen is soft nontender Examination of lower extremity shows no evidence of edema [employer]ELOPER exam grossly intact - Labs CBC & Chem 7: 04/14/23 07:05 04/14/23 07:05 Labs: Abnormal Lab Results - Last 24 Hours (Table) 04/13/23 04/13/23 04/13/23 Range/Units 08:19 11:31 12:26 RBC (3.80-5.40) m/uL Hgb (11.4-16.0) gm/dL Hct (34.0-46.0) % Plt Count (150-450) k/uL APTT 34.0 H (22.0-30.0) sec BUN (7-17) mg/dL Creatinine (0.52-1.04) mg/dL Glucose (74-99) mg/dL POC Glucose (mg/dL) 135 H (70-110) mg/dL Hemoglobin A1c 7.3 H (<=6.0) % Calcium (8.4-10.2) mg/dL Total Protein (6.3-8.2) g/dL Albumin (3.5-5.0) g/dL 04/13/23 04/13/23 04/14/23 Range/Units 16:49 20:13 06:13 RBC (3.80-5.40) m/uL Hgb (11.4-16.0) gm/dL Hct (34.0-46.0) % Plt Count (150-450) k/uL APTT (22.0-30.0) sec BUN (7-17) mg/dL Creatinine (0.52-1.04) mg/dL Glucose (74-99) mg/dL POC Glucose (mg/dL) 191 H 154 H 338 H (70-110) mg/dL Hemoglobin A1c (<=6.0) % Calcium (8.4-10.2) mg/dL Total Protein (6.3-8.2) g/dL Albumin (3.5-5.0) g/dL 04/14/23 04/14/23 Range/Units 07:05 07:05 RBC 3.22 L (3.80-5.40) m/uL Hgb 9.8 L (11.4-16.0) gm/dL Hct 30.8 L (34.0-46.0) % Plt Count 131 L (150-450) k/uL APTT (22.0-30.0) sec BUN 23 H (7-17) mg/dL Creatinine 1.91 H (0.52-1.04) mg/dL Glucose 119 H (74-99) mg/dL POC Glucose (mg/dL) (70-110) mg/dL Hemoglobin A1c (<=6.0) % Calcium 8.3 L (8.4-10.2) mg/dL Total Protein 5.9 L (6.3-8.2) g/dL Albumin 3.4 L (3.5-5.0) g/dL Microbiology - Last 24 Hours (Table) 04/12/23 19:10 Blood Culture Gram Stain - Preliminary Blood Blood Culture - Preliminary Gram Neg Bacilli 04/12/23 18:55 Blood Culture Gram Stain - Preliminary Blood Blood Culture - Preliminary Gram Neg Bacilli 04/12/23 19:09 Urine Culture - Final Urine,Voided Assessment and Plan Assessment: 1. Acute kidney injury, ATN currently nonoliguric secondary to underlying infection and hypotension. UA shows 1+ protein small blood and WBCs 116. Ultrasound of the kidneys on 04/13/2023 shows right kidney 7.9 cm left kidney 9.9 cm. No hydronephrosis noted. Maintained on IV fluids. 2. Urine tract infection with urine culture growing E. coli and blood cultures also growing E. coli 3. Chronic kidney disease and Stage III with previous creatinine 1.2 on 03/26/2022. Etiology is likely nephrosclerosis 4. Nongap metabolic acidosis associated with acute kidney injury maintained on IV bicarb 5. Gram-negative sepsis with urine and blood cultures growing E. coli Plan: DC IV bicarb Switch to Ringer lactate Repeat labs in a.m. Continued with IV fluids Encourage increase oral intake
[2023-04-14] MEDS: LACTATED RINGERS 1,000 ML IV SCH (10:45)
--- NOTE | 2023-04-14 11:20 | P.PN ---
Subjective Progress Note Date: 04/14/23 This is a 78-year-old female patient with known history of recurrent urine tract infection. I was consulted on this patient due to suspicion for pulmonary embolism. In fact this patient came into the hospital havingSymptoms of UTI. She was initially seen by the emergency physician complaining of discomfort, upon urination, and the patient also reported intermittent nausea. She denies having any chest pain. She denies having any shortness of breath. No reported fever or chills. No cough or sputum production. She had dysuria. She has been having 3-4 urine tract infection over the past 5 weeks. In the emergency, a D- dimer was done and the D-dimer turned out to be elevated at 2.43. Based on that, the patient was started on IV heparin. Further workup was done including a Doppler of the lower extremity that showed no evidence of any DVT and a VQ scan that showed low to intermediate probability. The patient denies having any previous history of DVT or pulmonary embolism. She has been active at home. No recent surgeries. Her current creatinine is at 2.35 which is consistent of an acute kidney injury. The patient is unable to undergo a CTA of the chest. She is currently on 3 L of oxygen by nasal cannula and pulse ox around 96 to 99%. No personal or family history of DVT or pulmonary embolism. The patient is currently on IV fluids. She was also started on IV Rocephin. She has seen urology in the past for recurrent UTIs. On today's evaluation of 04/14/2023, the patient is on room air oxygen. The patient was taken off the IV heparin. The patient is on subcu heparin for DVT prophylaxis. Meanwhile, further investigation and cultures revealed that the patient had E. coli sepsis related to an underlying urine tract infection. The patient is currently on IV Rocephin. In fact, the patient was septic at the time of admission which explains the elevation of the D-dimers.The patient otherwise doing well. No chest pain. No shortness of breath. BUN is at 23 with a creatinine of 1.9 and there is interval improvement of creatinine. The white cell count is 6.7 with a hemoglobin 9.8 and a platelet count of 131. Otherwise, no other significant events over the past 24 hours. The patient was also seen by urology. Objective - Vital Signs Vital signs: Vital Signs Temp 99 F 04/14/23 07:50 Pulse 101 H 04/14/23 07:50 Resp 16 04/14/23 07:50 BP 103/71 04/14/23 07:50 Pulse Ox 95 04/14/23 07:50 FiO2 Intake & Output 04/13/23 04/14/23 04/14/23 18:59 06:59 18:59 Intake Total 40.823 Output Total 595 800 150 Balance -554.177 -800 -150 Weight 68.039 kg Intake: Intake, IV Titration 40.823 Amount Heparin Sod,Pork in 0.45% 40.823 NaCl 25,000 unit In 0.45 % NaCl 1 250ml.bag @ 18 UNITS/KG/HR 12.247 mls/hr IV .[id number] [facility] Rx#: [id number] Output: Urine 550 800 150 Post Void Residual 45 Other: Voiding Method Toilet Toilet - Exam GENERAL EXAM: Alert, 78-year-old white female, comfortable in no apparent di stress., The patient is currently on room air oxygen HEAD: Normocephalic and atraumatic EYES: Normal reaction of pupils, equal size. NOSE: Clear with pink turbinates. THROAT: No erythema or exudates. NECK: No masses, no JVD. CHEST: No chest wall deformity. LUNGS: Equal air entry with no crackles, wheeze, rhonchi or dullness. . No conversational dyspnea or accessory muscle use.. CVS: S1 and S2 normal with no audible murmur, regular rhythm. No extra heart sounds ABDOMEN: No hepatosplenomegaly, active bowel sounds, no guarding or rigidity. SPINE: No scoliosis or deformity. No CVA tenderness. SKIN: No rashes CENTRAL NERVOUS SYSTEM: No focal deficits, tone is normal in all 4 extremities. EXTREMITIES: There is no peripheral edema, clubbing, or cyanosis. Peripheral pulses are intact. - Labs CBC & Chem 7: 04/14/23 07:05 04/14/23 07:05 Labs: Abnormal Lab Results - Last 24 Hours (Table) 04/13/23 04/13/23 04/13/23 Range/Units 08:19 11:31 12:26 RBC (3.80-5.40) m/uL Hgb (11.4-16.0) gm/dL Hct (34.0-46.0) % Plt Count (150-450) k/uL APTT 34.0 H (22.0-30.0) sec BUN (7-17) mg/dL Creatinine (0.52-1.04) mg/dL Glucose (74-99) mg/dL POC Glucose (mg/dL) 135 H (70-110) mg/dL Hemoglobin A1c 7.3 H (<=6.0) % Calcium (8.4-10.2) mg/dL Total Protein (6.3-8.2) g/dL Albumin (3.5-5.0) g/dL 04/13/23 04/13/23 04/14/23 Range/Units 16:49 20:13 06:13 RBC (3.80-5.40) m/uL Hgb (11.4-16.0) gm/dL Hct (34.0-46.0) % Plt Count (150-450) k/uL APTT (22.0-30.0) sec BUN (7-17) mg/dL Creatinine (0.52-1.04) mg/dL Glucose (74-99) mg/dL POC Glucose (mg/dL) 191 H 154 H 338 H (70-110) mg/dL Hemoglobin A1c (<=6.0) % Calcium (8.4-10.2) mg/dL Total Protein (6.3-8.2) g/dL Albumin (3.5-5.0) g/dL 04/14/23 04/14/23 Range/Units 07:05 07:05 RBC 3.22 L (3.80-5.40) m/uL Hgb 9.8 L (11.4-16.0) gm/dL Hct 30.8 L (34.0-46.0) % Plt Count 131 L (150-450) k/uL APTT (22.0-30.0) sec BUN 23 H (7-17) mg/dL Creatinine 1.91 H (0.52-1.04) mg/dL Glucose 119 H (74-99) mg/dL POC Glucose (mg/dL) (70-110) mg/dL Hemoglobin A1c (<=6.0) % Calcium 8.3 L (8.4-10.2) mg/dL Total Protein 5.9 L (6.3-8.2) g/dL Albumin 3.4 L (3.5-5.0) g/dL Microbiology - Last 24 Hours (Table) 04/12/23 19:10 Blood Culture Gram Stain - Preliminary Blood Blood Culture - Preliminary Gram Neg Bacilli 04/12/23 18:55 Blood Culture Gram Stain - Preliminary Blood Blood Culture - Preliminary Gram Neg Bacilli 04/12/23 19:09 Urine Culture - Final Urine,Voided Assessment and Plan Plan: Urine tract infection, with secondary sepsis and the patient has E. coli sepsis secondary to underlying urine tract infection Acute kidney injury secondary to above urine tract infection and possibly intravascular volume depletion and dehydration. The patient continues to have renal dysfunction and the creatinine is down to 1.9 Elevated D-dimer most likely secondary to underlying urine tract infection. No clinically suspicion for pulmonary embolism. Doppler of the lower extremity was negative and the VQ scan was low intermediate in nature. Nevertheless, the patient has no pleurisy or hemoptysis. No significant hypoxemia. No previous history of DVT or pulmonary embolism. The D-dimer elevation is most likely re lated to low underlying sepsis Hypoxic respiratory failure related to the above the patient is currently on 2 L of O2 nasal cannula, currently on room air oxygen Diabetes mellitus type 2 Hypertension Hypothyroidism Hyperlipidemia Plan Patient is currently on room air oxygen Continue IV Rocephin Continue heparin subcu for DVT prophylaxis No clinical suspicion for pulmonary embolism. The D-dimer is elevated due to underlying urine tract infection/sepsis Continue IV antibiotics Continue IV fluids Monitor renal function, creatinine is improving for now Provide incentive spirometer Urology consultation is appreciated Will continue to follow
[2023-04-14 11:30] LABS: Glucose,Whole Blood 79 mg/dL (70-110)
--- NOTE | 2023-04-14 12:36 | P.PN ---
Subjective Progress Note Date: 04/14/23 Hospital course: Patient is a very pleasant 78-year-old female with a past medical history of hypertension, hyperlipidemia, [id number] diabetes mellitus, chronic kidney disease stage IIIb and hypothyroidism. She presented to the emergency department with a chief complaint of increased weakness, chills, and overall not feeling well. She underwent full evaluation in the emergency department. Vital signs upon arrival show blood pressure 130/65, heart rate 109, respiratory rate 18, temp 102.6 F, and SpO2 of 90% on room air. EKG was completed showing sinus tachycardia at 107 bpm with T wave inversion in aVL. Chest x-ray completed negative for acute cardiopulmonary process. Labs completed and reviewed. CBC showing mild leukocytosis with WBC count of 11.8 and bicytopenia with hemoglobin of 10.7 and platelet count of 139. BMP showing mild hyponatremia with sodium of 134 and an acute kidney injury with BUN of 32, creatinine 2.20, and GFR of 21. Liver profile unremarkable. Lipase 77. Troponin 0.015 and proBNP 1920. Urinalysis was positive for infection showing positive protein, glucose, ketones, blood, leukocytes, and 116 WBCs. Influenza A, influenza B, RSV, and COVID PCR were negative. D-dimer was obtained resulting at 2.43. Venous Dopplers were completed on bilateral lower extremities negative for DVTs. Ultrasound renal, kidneys, and bladder negative for acute abnormalities showing no evidence of hydronephrosis or nephrolithiasis reported. Patient was started on high intensity heparin infusion empirically for concerns of potential PE pending completion of a VQ scan. She was started on IV antibiotics with Rocephin 1 g every 24 hours for treatment of her UTI with sepsis. Patient was admitted under our services with consultation to pulmonology and urology. Troponins were trended resulting at 0.015, 0.014, and less than 0.012. Physical exam: Patient seen and fully evaluated at bedside this morning. Patient sitting up in the chair reports feeling great this morning. She reports feeling much better than yesterday. Patient currently denies having any complaints, concerns, or needs at this time. Vital signs reviewed and stable. General: Nontoxic, no distress and appears stated age. Derm: Skin warm and dry, normal coloration for ethnicity. Head: Atraumatic, normocephalic and symmetric. Eyes: EOMs intact, no lid lag, and anicteric sclera Mouth: no lip lesions, mucus membranes moist Cardiovascular: regular rate and rhythm with normal S1S2, no murmur, positive posterior tibial pulses bilaterally, and cap refill < 2 seconds. Lungs: Respirations even, regular, and unlabored on room air. Lungs CTA bilaterally, no rhonchi, no rales, no wheezing, and no accessory muscle usage. Abdominal: soft, nontender to palpation, no guarding, no appreciable orga nomegaly Ext: ROM intact. No gross muscle atrophy, scant edema, no contractures Neuro: Speech clear, face symmetrical and CN II-XII grossly intact with no noted focal neuro deficits Psych: Alert and oriented to person, place, time, and situation. Appropriate and pleasant affect. Assessment and Plan of Care: E. coli UTI with sepsis upon initial presentation E. coli bacteremia Acute kidney injury on stage III chronic kidney disease, improving Non-anion gap metabolic acidosis secondary to JOE, resolved status post bicarb infusion Bicytopenia, stable -Patient with sepsis upon arrival with heart rate 107, temp 102.6 F, and WBC count of 11.8. -Urine culture positive for E. coli -Blood culture positive for E. coli -Continue IV antibiotics with Rocephin 2 g daily. -Infectious disease following, reviewed documentation in chart. -Nephrology consulted and placed patient on bicarb infusion, renal function improving and nephrology discontinued bicarb infusion changing fluids to LR at 75 cc/h. -Hold nephrotoxic agents (losartan) -Patient to remain on continuous telemetry monitoring. Acute hypoxic respiratory failure, resolved patient maintaining SpO2 95% on room air. Elevated D-dimer -VQ scan showing low probability for PE, heparin infusion was discontinued -Pulmonology following, initially started patient on heparin infusion secondary to suspicion for PE and discontinuing after VQ scan is negative. -Oxygenation to be administered and titrated as needed to maintain SPO2 equal to or greater than 92% -Continue telemetry monitoring. -Monitor pulse-oximetry -Incentive Spirometry -Echocardiogram completed and results reviewed showing a preserved EF of 55 to 60% with mild mitral regurgitation. Diabetes mellitus -Hold Glucophage and Farxiga and patient placed on glycemic protocol with NovoLog sliding scale. Hypertension -Losartan was held secondary to JOE. Patient to continue metoprolol 25 mg twice daily. Blood pressures remain stable at this time despite holding antihyp ertensive medication losartan and is currently 117/80. Hyperlipidemia -Continue daily medication regimen with atorvastatin 20 mg daily. Hypothyroidism -Continue daily medication regimen with levothyroxine 75 mcg daily. Data and imaging reviewed: Echocardiogram completed revealing preserved EF of 55 to 60% with mild mitral regurgitation. Blood culture positive for E. coli x 2 sets Urine culture positive for E. coli on 04/10/2019 Morning labs reviewed. CBC showing bicytopenia with hemoglobin of 9.8 and platelet count of 131. BMP showing resolution of non-anion gap metabolic acidosis with chloride improving to 103, bicarb 26, and anion gap of 8. Renal function also improving with BUN decreasing down to 23 creatinine 1.91, GFR increasing to 25. Vital signs reviewed and stable. Blood pressure 103/71, heart rate 101, respiratory rate 16, temp 99.0 F orally, and SpO2 of 95% on room air. CODE STATUS: Full code DVT prophylaxis: Heparin Anticipated discharge date: Clinical course to determine Anticipated discharge place: Clinical course to determine Patient was seen independently by Nurse Pracitioner. This document was prepared using [employer] dictation software. Please allow for errors in extrusion former, while rare they do occur. Vega Rodriguez NP rendered care for this patient independently, reviewed the findings and plan as documented in the note above. I did not physically speak with or examine the patient on this date. Objective - Vital Signs Vital signs: Vital Signs Temp 99 F 04/14/23 07:50 Pulse 101 H 04/14/23 07:50 Resp 16 04/14/23 07:50 BP 103/71 04/14/23 07:50 Pulse Ox 95 04/14/23 07:50 FiO2 Intake & Output 04/13/23 04/14/23 04/14/23 18:59 06:59 18:59 Intake Total 40.823 Output Total 595 800 Balance -554.177 -800 Weight 68.039 kg Intake: Intake, IV Titration 40.823 Amount Heparin Sod,Pork in 0.45% 40.823 NaCl 25,000 unit In 0.45 % NaCl 1 250ml.bag @ 18 UNITS/KG/HR 12.247 mls/hr IV .[id number] [facility] Rx#: [id number] Output: Urine 550 800 Post Void Residual 45 Other: Voiding Method Toilet Toilet - Labs CBC & Chem 7: 04/14/23 07:05 04/14/23 07:05 Labs: Abnormal Lab Results - Last 24 Hours (Table) 04/13/23 04/13/23 04/13/23 Range/Units 11:31 12:26 16:49 RBC (3.80-5.40) m/uL Hgb (11.4-16.0) gm/dL Hct (34.0-46.0) % Plt Count (150-450) k/uL APTT 34.0 H (22.0-30.0) sec POC Glucose (mg/dL) 135 H 191 H (70-110) mg/dL 04/13/23 04/14/23 04/14/23 Range/Units 20:13 06:13 07:05 RBC 3.22 L (3.80-5.40) m/uL Hgb 9.8 L (11.4-16.0) gm/dL Hct 30.8 L (34.0-46.0) % Plt Count 131 L (150-450) k/uL APTT (22.0-30.0) sec POC Glucose (mg/dL) 154 H 338 H (70-110) mg/dL Microbiology - Last 24 Hours (Table) 04/12/23 19:10 Blood Culture Gram Stain - Preliminary Blood Blood Culture - Preliminary Gram Neg Bacilli 04/12/23 18:55 Blood Culture Gram Stain - Preliminary Blood Blood Culture - Preliminary Gram Neg Bacilli 04/12/23 19:09 Urine Culture - Final Urine,Voided
--- NOTE | 2023-04-14 15:22 | P.PN ---
Subjective Progress Note Date: 04/14/23 Principal diagnosis: Reason for follow-up is UTI and bacteremia Patient is a 78-year-old female with a past medical history significant for diabetes mellitus hypertension hyperlipidemia osteoarthritis history of bilateral hip replacement presenting to the ER for evaluation of fever and chills, patient be diagnosed with a UTI subsequently blood cultures came back positive with gram-negative bacilli prompting this infectious disease consultation. On today's evaluation that is 04/14/2023, the patient is afebrile, patient is on room air, the patient denies chest pain shortness of breath or cough, patient denies nausea no vomiting no abdominal pain and no diarrhea. Patient did have a white count of 6.7, creatinine is 1.9 Abdominal ultrasound no distant abnormality Objective - Vital Signs Vital signs: Vital Signs Temp 99.1 F 04/14/23 11:50 Pulse 101 H 04/14/23 11:50 Resp 16 04/14/23 11:50 BP 119/74 04/14/23 11:50 Pulse Ox 96 04/14/23 11:50 FiO2 Intake & Output 04/13/23 04/14/23 04/14/23 18:59 06:59 18:59 Intake Total 40.823 Output Total 595 800 150 Balance -554.177 -800 -150 Weight 68.039 kg Intake: Intake, IV Titration 40.823 Amount Heparin Sod,Pork in 0.45% 40.823 NaCl 25,000 unit In 0.45 % NaCl 1 250ml.bag @ 18 UNITS/KG/HR 12.247 mls/hr IV .[id number] [facility] Rx#: [id number] Output: Urine 550 800 150 Post Void Residual 45 Other: Voiding Method Toilet Toilet Toilet - Exam GENERAL DESCRIPTION: An elderly female up in the chair in no distress RESPIRATORY SYSTEM: Unlabored breathing , decreased breath sounds at bases HEART: S1 S2 regular rate and rhythm , ABDOMEN: Soft , no tenderness EXTREMITIES: No edema feet - Labs CBC & Chem 7: 04/14/23 07:05 04/14/23 07:05 Labs: Abnormal Lab Results - Last 24 Hours (Table) 04/13/23 04/13/23 04/13/23 Range/Units 08:19 16:49 20:13 RBC (3.80-5.40) m/uL Hgb (11.4-16.0) gm/dL Hct (34.0-46.0) % Plt Count (150-450) k/uL BUN (7-17) mg/dL Creatinine (0.52-1.04) mg/dL Glucose (74-99) mg/dL POC Glucose (mg/dL) 191 H 154 H (70-110) mg/dL Hemoglobin A1c 7.3 H (<=6.0) % Calcium (8.4-10.2) mg/dL Total Protein (6.3-8.2) g/dL Albumin (3.5-5.0) g/dL 04/14/23 04/14/23 04/14/23 Range/Units 06:13 07:05 07:05 RBC 3.22 L (3.80-5.40) m/uL Hgb 9.8 L (11.4-16.0) gm/dL Hct 30.8 L (34.0-46.0) % Plt Count 131 L (150-450) k/uL BUN 23 H (7-17) mg/dL Creatinine 1.91 H (0.52-1.04) mg/dL Glucose 119 H (74-99) mg/dL POC Glucose (mg/dL) 338 H (70-110) mg/dL Hemoglobin A1c (<=6.0) % Calcium 8.3 L (8.4-10.2) mg/dL Total Protein 5.9 L (6.3-8.2) g/dL Albumin 3.4 L (3.5-5.0) g/dL Microbiology - Last 24 Hours (Table) 04/12/23 19:10 Blood Culture Gram Stain - Preliminary Blood Blood Culture - Preliminary Gram Neg Bacilli 04/12/23 18:55 Blood Culture Gram Stain - Preliminary Blood Blood Culture - Preliminary Gram Neg Bacilli 04/12/23 19:09 Urine Culture - Final Urine,Voided Assessment and Plan (1) Gram-negative bacteremia Current Visit: Yes Status: Acute Code(s): R78.81 - BACTEREMIA SNOMED Code(s): 435388737369 (2) Allergy to sulfa drugs Current Visit: Yes Status: Acute Code(s): Z88.2 - ALLERGY STATUS TO SULFONAMIDES SNOMED Code(s): 60202868 (3) UTI (urinary tract infection) Current Visit: Yes Status: Acute Code(s): N39.0 - URINARY TRACT INFECTION, SITE NOT SPECIFIED SNOMED Code(s): 77707722 Plan: 1patient presented hospital with sepsis in this patient who did have a fever tachycardia elevated white count patient did have urinary symptoms source likely pyelonephritis did have elevated creatinine but ultrasound did not show any obstructive uropathy [id number] bacteremia source likely urinary 3-patient to continue with Rocephin 2 g daily while waiting for the culture to finalize and monitor clinical course closely Dictation was produced using [employer] dictation software. please excuse any grammatical, word or spelling errors.
[2023-04-14 16:24] LABS: Glucose,Whole Blood 152 mg/dL (70-110)
[2023-04-14 19:59] LABS: Glucose,Whole Blood 152 mg/dL (70-110)
[2023-04-15 06:10] LABS: Glucose,Whole Blood 151 mg/dL (70-110)
[2023-04-15] MEDS: MAG HYDROX/AL HYDROX/SIMETH 30 ML, HYOSCYAMINE ELIXIR 10 ML, LIDOCAINE VISCOUS 10 ML PO ONE (09:52)
[2023-04-15 09:53] LABS: HGB 10.3 gm/dL (11.4-16.0); Hypochromasia Slight; MCH 31.6 pg (25.0-35.0); MCHC 33.1 g/dL (31.0-37.0); MCV 95.3 fL (80.0-100.0); Mean Platelet Volume 9.2; Platelet Count 140 k/uL (150-450); RBC 3.25 m/uL (3.80-5.40); RDW 14.7 % (11.5-15.5); WBC 9.4 k/uL (3.8-10.6)
[2023-04-15 10:13] LABS: ALT 17 U/L (4-34); AST 26 U/L (14-36); African American GFR (CKD) 32 (>60 ml/min/1.73 sqM); Albumin 3.6 g/dL (3.5-5.0); Alkaline Phosphatase 104 U/L (38-126); Anion Gap 7 mmol/L; Blood Urea Nitrogen 20 mg/dL (7-17); Calcium 8.8 mg/dL (8.4-10.2); Carbon Dioxide 24 mmol/L (22-30); Chloride 107 mmol/L (98-107); Glucose 145 mg/dL (74-99); Non-African American GFR(CKD) 28 (>60 ml/min/1.73 sqM); Potassium 3.8 mmol/L (3.5-5.1); Sodium 138 mmol/L (137-145); Total Bilirubin 0.4 mg/dL (0.2-1.3); Total Protein 6.3 g/dL (6.3-8.2)
--- NOTE | 2023-04-15 10:50 | P.PN ---
Subjective Patient is seen for follow-up for acute kidney injury. Urine culture and blood cultures are growing E. coli. Overall patient states she is feeling better. Tolerating oral intake Serum creatinine decreased to 1.7 24-hour urine output at 1125 mL. No urine retention. Postvoid residual was 45 mL. Objective - Vital Signs Vital signs: Vital Signs Temp 98.2 F 04/15/23 08:00 Pulse 95 04/15/23 08:00 Resp 17 04/15/23 08:00 BP 134/77 04/15/23 08:00 Pulse Ox 95 04/15/23 08:00 FiO2 Intake & Output 04/14/23 04/15/23 04/15/23 18:59 06:59 18:59 Intake Total 110 Output Total 150 975 Balance -150 -975 110 Intake: Oral 110 Output: Urine 150 975 Other: Voiding Method Toilet Toilet Toilet # Voids 2 - Exam Patient is awake, comfortable, no acute distress Alert oriented x 3 Examination of the heart S1 and S2 Examination of the lungs bilateral breath sounds are heard Abdomen is soft nontender Examination of lower extremity shows no evidence of edema FACILITY MAINTENANCE MANAGER exam grossly intact - Labs CBC & Chem 7: 04/15/23 09:32 04/15/23 09:32 Labs: Abnormal Lab Results - Last 24 Hours (Table) 04/14/23 04/14/23 04/15/23 Range/Units 16:23 19:58 06:08 RBC (3.80-5.40) m/uL Hgb (11.4-16.0) gm/dL Hct (34.0-46.0) % Plt Count (150-450) k/uL BUN (7-17) mg/dL Creatinine (0.52-1.04) mg/dL Glucose (74-99) mg/dL POC Glucose (mg/dL) 152 H 152 H 151 H (70-110) mg/dL 04/15/23 04/15/23 Range/Units 09:32 09:32 RBC 3.25 L (3.80-5.40) m/uL Hgb 10.3 L (11.4-16.0) gm/dL Hct 31.0 L (34.0-46.0) % Plt Count 140 L (150-450) k/uL BUN 20 H (7-17) mg/dL Creatinine 1.72 H (0.52-1.04) mg/dL Glucose 145 H (74-99) mg/dL POC Glucose (mg/dL) (70-110) mg/dL Microbiology - Last 24 Hours (Table) 04/12/23 19:10 Blood Culture Gram Stain - Preliminary Blood Blood Culture - Preliminary Gram Neg Bacilli 04/12/23 18:55 Blood Culture Gram Stain - Preliminary Blood Blood Culture - Preliminary Gram Neg Bacilli Assessment and Plan Assessment: 1. Acute kidney injury, ATN currently nonoliguric secondary to underlying infection and hypotension. UA shows 1+ protein small blood and WBCs 116. Ultrasound of the kidneys on 04/13/2023 shows right kidney 7.9 cm left kidney 9.9 cm. No hydronephrosis noted. Maintained on IV fluids. 2. Urine tract infection with urine culture growing E. coli and blood cultures also growing E. coli 3. Chronic kidney disease and Stage III with previous creatinine 1.2 on 03/26/2022. Etiology is likely nephrosclerosis 4. Nongap metabolic acidosis associated with acute kidney injury maintained on IV bicarb 5. Gram-negative sepsis with urine and blood cultures growing E. coli Plan: Continue IV antibiotics Repeat labs in a.m. Continue with IV fluids Encourage increase oral intake
--- NOTE | 2023-04-15 11:02 | P.PN ---
Subjective Progress Note Date: 04/15/23 This is a 78-year-old female patient with known history of recurrent urine tract infection. I was consulted on this patient due to suspicion for pulmonary embolism. In fact this patient came into the hospital havingSymptoms of UTI. She was initially seen by the emergency physician complaining of discomfort, upon urination, and the patient also reported intermittent nausea. She denies having any chest pain. She denies having any shortness of breath. No reported fever or chills. No cough or sputum production. She had dysuria. She has been having 3-4 urine tract infection over the past 5 weeks. In the emergency, a D- dimer was done and the D-dimer turned out to be elevated at 2.43. Based on that, the patient was started on IV heparin. Further workup was done including a Doppler of the lower extremity that showed no evidence of any DVT and a VQ scan that showed low to intermediate probability. The patient denies having any previous history of DVT or pulmonary embolism. She has been active at home. No recent surgeries. Her current creatinine is at 2.35 which is consistent of an acute kidney injury. The patient is unable to undergo a CTA of the chest. She is currently on 3 L of oxygen by nasal cannula and pulse ox around 96 to 99%. No personal or family history of DVT or pulmonary embolism. The patient is currently on IV fluids. She was also started on IV Rocephin. She has seen urology in the past for recurrent UTIs. On today's evaluation of 04/14/2023, the patient is on room air oxygen. The patient was taken off the IV heparin. The patient is on subcu heparin for DVT prophylaxis. Meanwhile, further investigation and cultures revealed that the patient had E. coli sepsis related to an underlying urine tract infection. The patient is currently on IV Rocephin. In fact, the patient was septic at the time of admission which explains the elevation of the D-dimers.The patient otherwise doing well. No chest pain. No shortness of breath. BUN is at 23 with a creatinine of 1.9 and there is interval improvement of creatinine. The white cell count is 6.7 with a hemoglobin 9.8 and a platelet count of 131. Otherwise, no other significant events over the past 24 hours. The patient was also seen by urology. On 04/15/2023, seen the patient for a follow-up. Patient is doing well. Sitting up in a chair and she is on room air oxygen. As mentioned, she has gram- negative in her blood secondary to urinary tract infection the patient remains on IV Rocephin. She had some insomnia overnight and this morning she is feeling adequate. Meanwhile, the blood work that was done today showed a WBC count of 9.4, hemoglobin of 10.3 and a platelet count of 140. BUN is at 20 with a creatinine 1.7 and a sodium level is at 138. Noted the patient renal function continues to improve For now. Meanwhile, the blood work that was done grad[facility] el[facility]. She remains on IV Rocephin. She remains also on IV fluids. No altered mentation. No chest pain. No aspiration. Objective - Vital Signs Vital signs: Vital Signs Temp 98.8 F 04/14/23 19:56 Pulse 87 04/15/23 04:23 Resp 16 04/15/23 04:23 BP 151/80 04/15/23 04:23 Pulse Ox 94 L 04/15/23 04:23 FiO2 Intake & Output 04/14/23 04/15/23 04/15/23 18:59 06:59 18:59 Output Total 150 975 Balance -150 -975 Output: Urine 150 975 Other: Voiding Method Toilet Toilet # Voids 2 - Exam GENERAL EXAM: Alert, 78-year-old white female, comfortable in no apparent distress., The patient is currently on room air oxygen HEAD: Normocephalic and atraumatic EYES: Normal reaction of pupils, equal size. NOSE: Clear with pink turbinates. THROAT: No erythema or exudates. NECK: No masses, no JVD. CHEST: No chest wall deformity. LUNGS: Equal air entry with no crackles, wheeze, rhonchi or dullness. . No conversational dyspnea or accessory muscle use.. CVS: S1 and S2 normal with no audible murmur, regular rhythm. No extra heart sounds ABDOMEN: No hepatosplenomegaly, active bowel sounds, no guarding or rigidity. SPINE: No scoliosis or deformity. No CVA tenderness. SKIN: No rashes CENTRAL NERVOUS SYSTEM: No focal deficits, tone is normal in all 4 extremities. EXTREMITIES: There is no peripheral edema, clubbing, or cyanosis. Peripheral pulses are intact. - Labs CBC & Chem 7: 04/15/23 09:32 04/15/23 09:32 Labs: Abnormal Lab Results - Last 24 Hours (Table) 04/13/23 04/14/23 04/14/23 Range/Units 08:19 07:05 07:05 RBC 3.22 L (3.80-5.40) m/uL Hgb 9.8 L (11.4-16.0) gm/dL Hct 30.8 L (34.0-46.0) % Plt Count 131 L (150-450) k/uL BUN 23 H (7-17) mg/dL Creatinine 1.91 H (0.52-1.04) mg/dL Glucose 119 H (74-99) mg/dL POC Glucose (mg/dL) (70-110) mg/dL Hemoglobin A1c 7.3 H (<=6.0) % Calcium 8.3 L (8.4-10.2) mg/dL Total Protein 5.9 L (6.3-8.2) g/dL Albumin 3.4 L (3.5-5.0) g/dL 04/14/23 04/14/23 04/15/23 Range/Units 16:23 19:58 06:08 RBC (3.80-5.40) m/uL Hgb (11.4-16.0) gm/dL Hct (34.0-46.0) % Plt Count (150-450) k/uL BUN (7-17) mg/dL Creatinine (0.52-1.04) mg/dL Glucose (74-99) mg/dL POC Glucose (mg/dL) 152 H 152 H 151 H (70-110) mg/dL Hemoglobin A1c (<=6.0) % Calcium (8.4-10.2) mg/dL Total Protein (6.3-8.2) g/dL Albumin (3.5-5.0) g/dL Microbiology - Last 24 Hours (Table) 04/12/23 19:10 Blood Culture Gram Stain - Preliminary Blood Blood Culture - Preliminary Gram Neg Bacilli 04/12/23 18:55 Blood Culture Gram Stain - Preliminary Blood Blood Culture - Preliminary Gram Neg Bacilli Assessment and Plan Plan: Urine tract infection, with secondary sepsis and the patient has E. coli sepsis secondary to underlying urine tract infection, awaiting final cultures and sensitivities. Acute kidney injury secondary to above urine tract infection and possibly intravascular volume depletion and dehydration. The patient continues to have renal dysfunction and the creatinine is down to 1.7 Elevated D-dimer most likely secondary to underlying urine tract infection. No clinically suspicion for pulmonary embolism. Doppler of the lower extremity was negative and the VQ scan was low intermediate in nature. Nevertheless, the patient has no pleurisy or hemoptysis. No significant hypoxemia. No previous history of DVT or pulmonary embolism. The D-dimer elevation is most likely related to low underlying sepsis Hypoxic respiratory failure related to the above the patient is currently on 2 L of O2 nasal cannula, currently on room air oxygen Diabetes mellitus type 2 Hypertension Hypothyroidism Hyperlipidemia Plan Patient is currently on room air oxygen Continue IV Rocephin Continue heparin subcu for DVT prophylaxis No clinical suspicion for pulmonary embolism. The D-dimer is elevated due to underlying urine tract infection/sepsis Continue IV antibiotics Continue IV fluids Monitor renal function, creatinine is improving for now and the creatinine is down to 1.7 Provide incentive spirometer Urology consultation is appreciated Will continue to follow
[2023-04-15 11:32] LABS: Glucose,Whole Blood 132 mg/dL (70-110)
--- NOTE | 2023-04-15 11:50 | P.PN ---
Subjective Progress Note Date: 04/15/23 Hospital course: Patient is a very pleasant 78-year-old female with a past medical history of hypertension, hyperlipidemia, [id number] diabetes mellitus, chronic kidney disease stage IIIb and hypothyroidism. She presented to the emergency department with a chief complaint of increased weakness, chills, and overall not feeling well. She underwent full evaluation in the emergency department. Vital signs upon arrival show blood pressure 130/65, heart rate 109, respiratory rate 18, temp 102.6 F, and SpO2 of 90% on room air. EKG was completed showing sinus tachycardia at 107 bpm with T wave inversion in aVL. Chest x-ray completed negative for acute cardiopulmonary process. Labs completed and reviewed. CBC showing mild leukocytosis with WBC count of 11.8 and bicytopenia with hemoglobin of 10.7 and platelet count of 139. BMP showing mild hyponatremia with sodium of 134 and an acute kidney injury with BUN of 32, creatinine 2.20, and GFR of 21 with baseline creatinine of 1.2. Liver profile unremarkable. Lipase 77. Troponin 0.015 and proBNP 1920. Urinalysis was positive for infection showing positive protein, glucose, ketones, blood, leukocytes, and 116 WBCs. Influenza A, influenza B, RSV, and COVID PCR were negative. D-dimer was obtained resulting at 2.43. Venous Dopplers were completed on bilateral lower extremities negative for DVTs. Ultrasound renal, kidneys, and bladder negative for acute abnormalities showing no evidence of hydronephrosis or nephrolithiasis reported. Patient was started on high intensity heparin infusion empirically for concerns of potential PE pending completion of a VQ scan. She was started on IV antibiotics with Rocephin 1 g every 24 hours for treatment of her UTI with sepsis. Patient was admitted under our services with consultation to pulmonology and urology. VQ scan showing low probability for PE, heparin infusion was discontinued. Troponins were trended resulting at 0.015, 0.014, and less than 0.012. Echocardiogram completed revealing preserved EF of 55 to 60% with mild mitral regurgitation. Blood culture reporting positive for E. coli. Patient remains on IV antibiotics with Rocephin dose increased to 2 g daily. Infectious disease was consulted. Urine culture obtained 04/10/2023 was also positive for E. coli. Repeat urine culture obtained this visit is negative. Physical exam: Patient seen and fully evaluated at the bedside this morning. She reports feeling well this morning. Patient ambulated to restroom without difficulties and denies any needs. Vital signs reviewed and stable. General: Nontoxic, no distress and appears stated age. Derm: Skin warm and dry, normal coloration for ethnicity. Head: Atraumatic, normocephalic and symmetric. Eyes: EOMs intact, no lid lag, and anicteric sclera Mouth: no lip lesions, mucus membranes moist Cardiovascular: regular rate and rhythm with normal S1S2, no murmur, positive posterior tibial pulses bilaterally, and cap refill < 2 seconds. Lungs: Respirations even, regular, and unlabored on room air. Abdominal: soft, nontender to palpation Ext: ROM intact. No gross muscle atrophy, scant edema, no contractures Neuro: Speech clear, face symmetrical and CN II-XII grossly intact with no noted focal neuro deficits Psych: Alert and oriented to person, place, time, and situation. Appropriate and pleasant affect. Assessment and Plan of Care: E. coli UTI with sepsis upon initial presentation E. coli bacteremia Acute kidney injury on stage III chronic kidney disease, improving Non-anion gap metabolic acidosis secondary to JOE, resolved status post bicarb infusion Bicytopenia, stable -Patient with sepsis upon arrival with heart rate 107, temp 102.6 F, and WBC count of 11.8. -Urine culture positive for E. coli -Blood culture positive for E. coli -Continue IV antibiotics with Rocephin 2 g daily. -Infectious disease following, reviewed documentation in chart. -Nephrology consulted and placed patient on bicarb infusion, renal function improving and nephrology discontinued bicarb infusion changing fluids to LR at 75 cc/h. -Hold nephrotoxic agents (losartan) -Patient to remain on continuous telemetry monitoring. Acute hypoxic respiratory failure, resolved patient maintaining SpO2 95% on room air. Elevated D-dimer -VQ scan showing low probability for PE, heparin infusion was discontinued -Pulmonology following, initially started patient on heparin infusion secondary to suspicion for PE and discontinuing after VQ scan is negative. -Oxygenation to be administered and titrated as needed to maintain SPO2 equal to or greater than 92% -Continue telemetry monitoring. -Monitor pulse-oximetry -Incentive Spirometry -Echocardiogram completed and results reviewed showing a preserved EF of 55 to 60% with mild mitral regurgitation. Diabetes mellitus -Hold Glucophage and Farxiga and patient placed on glycemic protocol with NovoLog sliding scale. Hypertension -Losartan was held secondary to JOE. Patient to continue metoprolol 25 mg twice daily. Blood pressures remain stable at this time despite holding antihypertensive medication losartan and is currently 117/80. Hyperlipidemia -Continue daily medication regimen with atorvastatin 20 mg daily. Hypothyroidism -Continue daily medication regimen with levothyroxine 75 mcg daily. Data and imaging reviewed: Documented urinary output over the past 24 hours is 1125. Blood culture positive for E. coli x 2 sets Urine culture positive for E. coli on 04/10/2023 Morning labs reviewed. CBC showing stable bicytopenia with hemoglobin of 10.3 and platelet count of 140. BMP showing improving renal function with BUN of 20, creatinine 1.72, and GFR of 28 with baseline creatinine of 1.2. Vital signs reviewed and stable. Blood pressure 134/77, heart rate 95, respiratory rate 17, temp 98.2 F, SpO2 of 95% on room air. CODE STATUS: Full code DVT prophylaxis: Heparin Anticipated discharge date: Clinical course to determine Anticipated discharge place: Clinical course to determine Patient was seen independently by Nurse Pracitioner. This document was prepared using [employer] dictation software. Please allow for errors in gamer, while rare they do occur. I reviewed the documentation as provided by the MINOO above, who is the original author of this note. I agree with the documented assessment and plan, with the following changes: none Objective - Vital Signs Vital signs: Vital Signs Temp 98.8 F 04/14/23 19:56 Pulse 87 04/15/23 04:23 Resp 16 04/15/23 04:23 BP 151/80 04/15/23 04:23 Pulse Ox 94 L 04/15/23 04:23 FiO2 Intake & Output 04/14/23 04/15/23 04/15/23 18:59 06:59 18:59 Output Total 150 975 Balance -150 -975 Output: Urine 150 975 Other: Voiding Method Toilet Toilet # Voids 2 - Labs CBC & Chem 7: 04/17/23 06:14 04/17/23 06:14 Labs: Abnormal Lab Results - Last 24 Hours (Table) 04/13/23 04/14/23 04/14/23 Range/Units 08:19 07:05 07:05 RBC 3.22 L (3.80-5.40) m/uL Hgb 9.8 L (11.4-16.0) gm/dL Hct 30.8 L (34.0-46.0) % Plt Count 131 L (150-450) k/uL BUN 23 H (7-17) mg/dL Creatinine 1.91 H (0.52-1.04) mg/dL Glucose 119 H (74-99) mg/dL POC Glucose (mg/dL) (70-110) mg/dL Hemoglobin A1c 7.3 H (<=6.0) % Calcium 8.3 L (8.4-10.2) mg/dL Total Protein 5.9 L (6.3-8.2) g/dL Albumin 3.4 L (3.5-5.0) g/dL 04/14/23 04/14/23 04/15/23 Range/Units 16:23 19:58 06:08 RBC (3.80-5.40) m/uL Hgb (11.4-16.0) gm/dL Hct (34.0-46.0) % Plt Count (150-450) k/uL BUN (7-17) mg/dL Creatinine (0.52-1.04) mg/dL Glucose (74-99) mg/dL POC Glucose (mg/dL) 152 H 152 H 151 H (70-110) mg/dL Hemoglobin A1c (<=6.0) % Calcium (8.4-10.2) mg/dL Total Protein (6.3-8.2) g/dL Albumin (3.5-5.0) g/dL Microbiology - Last 24 Hours (Table) 04/12/23 19:10 Blood Culture Gram Stain - Preliminary Blood Blood Culture - Preliminary Gram Neg Bacilli 04/12/23 18:55 Blood Culture Gram Stain - Preliminary Blood Blood Culture - Preliminary Gram Neg Bacilli
--- NOTE | 2023-04-15 12:03 | P.PN ---
Subjective Progress Note Date: 04/15/23 Principal diagnosis: UTI with sepsis Patient's recent urine culture shows E. coli, and blood cultures also show E. coli. When the blood cultures are complete, it will then be possible to determine whether or not it is the same strain of E. coli. I expect that it is the case. She she continues to feel better each day and states that she feels very good this morning. Objective - Vital Signs Vital signs: Vital Signs Temp 98.4 F 04/15/23 11:38 Pulse 82 04/15/23 11:38 Resp 17 04/15/23 11:38 BP 130/82 04/15/23 11:38 Pulse Ox 95 04/15/23 11:38 FiO2 Intake & Output 04/14/23 04/15/23 04/15/23 18:59 06:59 18:59 Intake Total 110 Output Total 150 975 Balance -150 -975 110 Intake: Oral 110 Output: Urine 150 975 Other: Voiding Method Toilet Toilet Toilet # Voids 2 - Constitutional General appearance: Present: average body habitus, cooperative, no acute distress - Psychiatric Psychiatric: Present: A&O x's 3 - Labs CBC & Chem 7: 04/15/23 09:32 04/15/23 09:32 Labs: Abnormal Lab Results - Last 24 Hours (Table) 04/14/23 04/14/23 04/15/23 Range/Units 16:23 19:58 06:08 RBC (3.80-5.40) m/uL Hgb (11.4-16.0) gm/dL Hct (34.0-46.0) % Plt Count (150-450) k/uL BUN (7-17) mg/dL Creatinine (0.52-1.04) mg/dL Glucose (74-99) mg/dL POC Glucose (mg/dL) 152 H 152 H 151 H (70-110) mg/dL 04/15/23 04/15/23 04/15/23 Range/Units 09:32 09:32 11:30 RBC 3.25 L (3.80-5.40) m/uL Hgb 10.3 L (11.4-16.0) gm/dL Hct 31.0 L (34.0-46.0) % Plt Count 140 L (150-450) k/uL BUN 20 H (7-17) mg/dL Creatinine 1.72 H (0.52-1.04) mg/dL Glucose 145 H (74-99) mg/dL POC Glucose (mg/dL) 132 H (70-110) mg/dL Microbiology - Last 24 Hours (Table) 04/12/23 19:10 Blood Culture Gram Stain - Preliminary Blood Blood Culture - Preliminary Gram Neg Bacilli 04/12/23 18:55 Blood Culture Gram Stain - Preliminary Blood Blood Culture - Preliminary Gram Neg Bacilli Assessment and Plan Assessment: The urine culture sent April 10 shows E. coli, sensitive to most antibiotics tested, including ceftriaxone. Blood cultures obtained at the time of admission show E. coli. (1) UTI (urinary tract infection) Current Visit: Yes Status: Acute Code(s): N39.0 - URINARY TRACT INFECTION, SITE NOT SPECIFIED SNOMED Code(s): 52961465 Plan: - Once blood cultures are complete, the organism can be compared to the urine culture obtained on April 10, 2023. I suspect it will be the same organism, and that Mrs. Partida can then be discharged home on appropriate oral antibiotics. - Will obtain urine culture results from the past 2 years. - I discussed with the patient means of UTI prevention, such as the use of Estrace vaginal cream. Depending on the urine culture results, consideration will also be given to treatment with methenamine. The patient will follow-up with me in 2 weeks. Please notify me if I can be of any further assistance during this hospitalization.
--- NOTE | 2023-04-15 14:19 | P.PN ---
Subjective Progress Note Date: 04/15/23 Principal diagnosis: Reason for follow-up is UTI and bacteremia Patient is a 78-year-old female with a past medical history significant for diabetes mellitus hypertension hyperlipidemia osteoarthritis history of bilateral hip replacement presenting to the ER for evaluation of fever and chills, patient be diagnosed with a UTI subsequently blood cultures came back positive with gram-negative bacilli prompting this infectious disease consultation. On today's evaluation that is 04/15/2023, the patient denies any fever or any chills, patient is breathing comfortably on room air, the patient denies chest pain shortness of breath and no significant cough cough, patient denies abdominal pain, no nausea vomiting or diarrhea. Patient white count is 9.4, creatinine is 1.72 blood culture with an E. coli sensitive to ceftriaxone Objective - Vital Signs Vital signs: Vital Signs Temp 98.2 F 04/15/23 08:00 Pulse 95 04/15/23 08:00 Resp 17 04/15/23 08:00 BP 134/77 04/15/23 08:00 Pulse Ox 95 04/15/23 08:00 FiO2 Intake & Output 04/14/23 04/15/23 04/15/23 18:59 06:59 18:59 Intake Total 110 Output Total 150 975 Balance -150 -975 110 Intake: Oral 110 Output: Urine 150 975 Other: Voiding Method Toilet Toilet Toilet # Voids 2 - Exam GENERAL DESCRIPTION: An elderly female up in the chair in no distress RESPIRATORY SYSTEM: Unlabored breathing , decreased breath sounds at bases HEART: S1 S2 regular rate and rhythm , ABDOMEN: Soft , no tenderness EXTREMITIES: No edema feet - Labs CBC & Chem 7: 04/15/23 09:32 04/15/23 09:32 Labs: Abnormal Lab Results - Last 24 Hours (Table) 04/14/23 04/14/23 04/15/23 Range/Units 16:23 19:58 06:08 RBC (3.80-5.40) m/uL Hgb (11.4-16.0) gm/dL Hct (34.0-46.0) % Plt Count (150-450) k/uL BUN (7-17) mg/dL Creatinine (0.52-1.04) mg/dL Glucose (74-99) mg/dL POC Glucose (mg/dL) 152 H 152 H 151 H (70-110) mg/dL 04/15/23 04/15/23 Range/Units 09:32 09:32 RBC 3.25 L (3.80-5.40) m/uL Hgb 10.3 L (11.4-16.0) gm/dL Hct 31.0 L (34.0-46.0) % Plt Count 140 L (150-450) k/uL BUN 20 H (7-17) mg/dL Creatinine 1.72 H (0.52-1.04) mg/dL Glucose 145 H (74-99) mg/dL POC Glucose (mg/dL) (70-110) mg/dL Microbiology - Last 24 Hours (Table) 04/12/23 19:10 Blood Culture Gram Stain - Preliminary Blood Blood Culture - Preliminary Gram Neg Bacilli 04/12/23 18:55 Blood Culture Gram Stain - Preliminary Blood Blood Culture - Preliminary Gram Neg Bacilli Assessment and Plan (1) Sepsis Current Visit: Yes Status: Acute Code(s): A41.9 - SEPSIS, UNSPECIFIED ORGANISM SNOMED Code(s): 67987434 (2) Allergy to sulfa drugs Current Visit: Yes Status: Acute Code(s): Z88.2 - ALLERGY STATUS TO SULFONAMIDES SNOMED Code(s): 13828736 (3) Gram-negative bacteremia Current Visit: Yes Status: Acute Code(s): R78.81 - BACTEREMIA SNOMED Code(s): 088455197277 (4) UTI (urinary tract infection) Current Visit: Yes Status: Acute Code(s): N39.0 - URINARY TRACT INFECTION, SITE NOT SPECIFIED SNOMED Code(s): 20933982 Plan: 1patient presented hospital with sepsis in this patient who did have a fever tachycardia elevated white count patient did have urinary symptoms source likely pyelonephritis did have elevated creatinine but ultrasound did not show any obstructive uropathy 2-E. coli bacteremia source likely urinary 3-patient to continue with Rocephin 2 g daily while inpatient however finishing therapy with oral antibiotics Dictation was produced using [employer] dictation software. please excuse any grammatical, word or spelling errors. Time with Patient: Less than 30
[2023-04-15 16:38] LABS: Glucose,Whole Blood 138 mg/dL (70-110)
[2023-04-15 20:20] LABS: Glucose,Whole Blood 124 mg/dL (70-110)
[2023-04-16] MEDS: hydrALAZINE HCL 25 MG TAB PO STA (05:10)
[2023-04-16 06:05] LABS: Glucose,Whole Blood 146 mg/dL (70-110)
[2023-04-16] MEDS ORDERED: hydrALAZINE HCL 20 MG/ML 1 ML VIAL IVP PRN (08:55)
[2023-04-16 09:18] LABS: HCT 29.8 % (34.0-46.0); HGB 9.5 gm/dL (11.4-16.0); Hypochromasia Slight; MCH 30.3 pg (25.0-35.0); MCHC 31.9 g/dL (31.0-37.0); MCV 94.9 fL (80.0-100.0); Mean Platelet Volume 10.3; Platelet Count 122 k/uL (150-450); RBC 3.14 m/uL (3.80-5.40); RDW 14.9 % (11.5-15.5); WBC 8.2 k/uL (3.8-10.6)
[2023-04-16 09:32] LABS: ALT 15 U/L (4-34); AST 24 U/L (14-36); African American GFR (CKD) 32 (>60 ml/min/1.73 sqM); Albumin 3.4 g/dL (3.5-5.0); Alkaline Phosphatase 94 U/L (38-126); Anion Gap 10 mmol/L; Blood Urea Nitrogen 17 mg/dL (7-17); Calcium 8.7 mg/dL (8.4-10.2); Carbon Dioxide 21 mmol/L (22-30); Chloride 107 mmol/L (98-107); Glucose 143 mg/dL (74-99); Magnesium 1.9 mg/dL (1.6-2.3); Non-African American GFR(CKD) 28 (>60 ml/min/1.73 sqM); Potassium 4.3 mmol/L (3.5-5.1); Sodium 138 mmol/L (137-145); Total Bilirubin 0.4 mg/dL (0.2-1.3)
[2023-04-16] MEDS: amLODIPine 5 MG TAB PO SCH (10:32)
--- NOTE | 2023-04-16 11:22 | P.PN ---
Subjective Patient is seen for follow-up for acute kidney injury. Urine culture and blood cultures are growing E. coli. Overall patient states she is feeling better. Maintained on IV fluids. Tolerating oral intake Serum creatinine decreased to 1.7 and staying there for last 2 days. 24-hour urine output at 1125 mL. No urine retention. Postvoid residual was 45 mL. Blood pressure has been high. Losartan was held on admission due to acute kidney injury. Objective - Vital Signs Vital signs: Vital Signs Temp 98.2 F 04/16/23 08:17 Pulse 91 04/16/23 08:17 Resp 16 04/16/23 08:17 BP 167/89 04/16/23 08:17 Pulse Ox 94 L 04/16/23 08:17 FiO2 Intake & Output 04/15/23 04/16/23 04/16/23 18:59 06:59 18:59 Intake Total 220 240 Output Total 250 Balance -30 240 Intake: Oral 220 240 Output: Urine 250 Other: Voiding Method Toilet Toilet Toilet - Exam Patient is awake, comfortable, no acute distress Alert oriented x 3 Examination of the heart S1 and S2 Examination of the lungs bilateral breath sounds are heard Abdomen is soft nontender Examination of lower extremity shows no evidence of edema FINISHED CARPET INSPECTOR exam grossly intact - Labs CBC & Chem 7: 04/16/23 08:08 04/16/23 08:08 Labs: Abnormal Lab Results - Last 24 Hours (Table) 04/15/23 04/15/23 04/15/23 Range/Units 11:30 16:36 20:18 RBC (3.80-5.40) m/uL Hgb (11.4-16.0) gm/dL Hct (34.0-46.0) % Plt Count (150-450) k/uL Carbon Dioxide (22-30) mmol/L Creatinine (0.52-1.04) mg/dL Glucose (74-99) mg/dL POC Glucose (mg/dL) 132 H 138 H 124 H (70-110) mg/dL Total Protein (6.3-8.2) g/dL Albumin (3.5-5.0) g/dL 04/16/23 04/16/23 04/16/23 Range/Units 06:02 08:08 08:08 RBC 3.14 L (3.80-5.40) m/uL Hgb 9.5 L (11.4-16.0) gm/dL Hct 29.8 L (34.0-46.0) % Plt Count 122 L (150-450) k/uL Carbon Dioxide 21 L (22-30) mmol/L Creatinine 1.72 H (0.52-1.04) mg/dL Glucose 143 H (74-99) mg/dL POC Glucose (mg/dL) 146 H (70-110) mg/dL Total Protein 6.0 L (6.3-8.2) g/dL Albumin 3.4 L (3.5-5.0) g/dL Microbiology - Last 24 Hours (Table) 04/12/23 19:10 Blood Culture Gram Stain - Final Blood Blood Culture - Final Escherichia coli 04/12/23 18:55 Blood Culture Gram Stain - Final Blood Blood Culture - Final Escherichia coli Assessment and Plan Assessment: 1. Acute kidney injury, ATN currently nonoliguric secondary to underlying infection and hypotension. UA shows 1+ protein small blood and WBCs 116. Ultrasound of the kidneys on 04/13/2023 shows right kidney 7.9 cm left kidney 9.9 cm. No hydronephrosis noted. Maintained on IV fluids. Previous creatinine 1.2 on 03/26/2022 2. Urine tract infection with urine culture growing E. coli and blood cultures also growing E. coli 3. Chronic kidney disease and Stage III with previous creatinine 1.2 on 03/26/2022. Etiology is likely nephrosclerosis 4. Nongap metabolic acidosis associated with acute kidney injury maintained on IV bicarb 5. Gram-negative sepsis with urine and blood cultures growing E. coli 6. Hypertension, losartan currently on hold. Add amlodipine and increase metoprolol. Plan: Add amlodipine Increase metoprolol Continue IV antibiotics Repeat labs in a.m. Continue with IV fluids, decrease rate Encourage increase oral intake
[2023-04-16 11:26] LABS: Glucose,Whole Blood 112 mg/dL (70-110)
--- NOTE | 2023-04-16 12:30 | P.PN ---
Subjective Progress Note Date: 04/16/23 This is a 78-year-old female patient with known history of recurrent urine tract infection. I was consulted on this patient due to suspicion for pulmonary embolism. In fact this patient came into the hospital havingSymptoms of UTI. She was initially seen by the emergency physician complaining of discomfort, upon urination, and the patient also reported intermittent nausea. She denies having any chest pain. She denies having any shortness of breath. No reported fever or chills. No cough or sputum production. She had dysuria. She has been having 3-4 urine tract infection over the past 5 weeks. In the emergency, a D- dimer was done and the D-dimer turned out to be elevated at 2.43. Based on that, the patient was started on IV heparin. Further workup was done including a Doppler of the lower extremity that showed no evidence of any DVT and a VQ scan that showed low to intermediate probability. The patient denies having any previous history of DVT or pulmonary embolism. She has been active at home. No recent surgeries. Her current creatinine is at 2.35 which is consistent of an acute kidney injury. The patient is unable to undergo a CTA of the chest. She is currently on 3 L of oxygen by nasal cannula and pulse ox around 96 to 99%. No personal or family history of DVT or pulmonary embolism. The patient is currently on IV fluids. She was also started on IV Rocephin. She has seen urology in the past for recurrent UTIs. On today's evaluation of 04/14/2023, the patient is on room air oxygen. The patient was taken off the IV heparin. The patient is on subcu heparin for DVT prophylaxis. Meanwhile, further investigation and cultures revealed that the patient had E. coli sepsis related to an underlying urine tract infection. The patient is currently on IV Rocephin. In fact, the patient was septic at the time of admission which explains the elevation of the D-dimers.The patient otherwise doing well. No chest pain. No shortness of breath. BUN is at 23 with a creatinine of 1.9 and there is interval improvement of creatinine. The white cell count is 6.7 with a hemoglobin 9.8 and a platelet count of 131. Otherwise, no other significant events over the past 24 hours. The patient was also seen by urology. On 04/15/2023, seen the patient for a follow-up. Patient is doing well. Sitting up in a chair and she is on room air oxygen. As mentioned, she has gram- negative in her blood secondary to urinary tract infection the patient remains on IV Rocephin. She had some insomnia overnight and this morning she is feeling adequate. Meanwhile, the blood work that was done today showed a WBC count of 9.4, hemoglobin of 10.3 and a platelet count of 140. BUN is at 20 with a creatinine 1.7 and a sodium level is at 138. Noted the patient renal function continues to improve For now. Meanwhile, the blood work that was done gradfernando johnson. She remains on IV Rocephin. She remains also on IV fluids. No altered mentation. No chest pain. No aspiration. 04/16/2023, the patient is being seen in follow-up regarding her E. coli septic emia originating from urine tract infection the patient remains on IV Rocephin. She is still on room air oxygen. She is on heparin subcu for DVT prophylaxis. No new complaints otherwise for now.The blood work from today shows a white cell count of 8.2 with a hemoglobin 9.5 and a platelet count of 122. BUN is at 17 with a creatinine of 1.7 and sodium levels at 138. Noted the creatinine was imp roving and he says stayed stable since yesterday. Objective - Vital Signs Vital signs: Vital Signs Temp 98.2 F 04/16/23 08:17 Pulse 91 04/16/23 08:17 Resp 16 04/16/23 08:17 BP 167/89 04/16/23 08:17 Pulse Ox 94 L 04/16/23 08:17 FiO2 Intake & Output 04/15/23 04/16/23 04/16/23 18:59 06:59 18:59 Intake Total 220 240 Output Total 250 Balance -30 240 Intake: Oral 220 240 Output: Urine 250 Other: Voiding Method Toilet Toilet - Exam GENERAL EXAM: Alert, 78-year-old white female, comfortable in no apparent distress., The patient is currently on room air oxygen HEAD: Normocephalic and atraumatic EYES: Normal reaction of pupils, equal size. NOSE: Clear with pink turbinates. THROAT: No erythema or exudates. NECK: No masses, no JVD. CHEST: No chest wall deformity. LUNGS: Equal air entry with no crackles, wheeze, rhonchi or dullness. . No conversational dyspnea or accessory muscle use.. CVS: S1 and S2 normal with no audible murmur, regular rhythm. No extra heart sounds ABDOMEN: No hepatosplenomegaly, active bowel sounds, no guarding or rigidity. SPINE: No scoliosis or deformity. No CVA tenderness. SKIN: No rashes CENTRAL NERVOUS SYSTEM: No focal deficits, tone is normal in all 4 extremities. EXTREMITIES: There is no peripheral edema, clubbing, or cyanosis. Peripheral pulses are intact. - Labs CBC & Chem 7: 04/16/23 08:08 04/16/23 08:08 Labs: Abnormal Lab Results - Last 24 Hours (Table) 04/15/23 04/15/23 04/15/23 Range/Units 09:32 09:32 11:30 RBC 3.25 L (3.80-5.40) m/uL Hgb 10.3 L (11.4-16.0) gm/dL Hct 31.0 L (34.0-46.0) % Plt Count 140 L (150-450) k/uL BUN 20 H (7-17) mg/dL Creatinine 1.72 H (0.52-1.04) mg/dL Glucose 145 H (74-99) mg/dL POC Glucose (mg/dL) 132 H (70-110) mg/dL 04/15/23 04/15/23 04/16/23 Range/Units 16:36 20:18 06:02 RBC (3.80-5.40) m/uL Hgb (11.4-16.0) gm/dL Hct (34.0-46.0) % Plt Count (150-450) k/uL BUN (7-17) mg/dL Creatinine (0.52-1.04) mg/dL Glucose (74-99) mg/dL POC Glucose (mg/dL) 138 H 124 H 146 H (70-110) mg/dL Microbiology - Last 24 Hours (Table) 04/12/23 19:10 Blood Culture Gram Stain - Final Blood Blood Culture - Final Escherichia coli 04/12/23 18:55 Blood Culture Gram Stain - Final Blood Blood Culture - Final Escherichia coli Assessment and Plan Plan: Urine tract infection, with secondary sepsis and the patient has E. coli sepsis secondary to underlying urine tract infection, patient is currently on IV Rocephin Acute kidney injury secondary to above urine tract infection and possibly intravascular volume depletion and dehydration. The patient continues to have renal dysfunction and the creatinine is down to 1.7, stable since yesterday Elevated D-dimer most likely secondary to underlying urine tract infection. No clinically suspicion for pulmonary embolism. Doppler of the lower extremity was negative and the VQ scan was low intermediate in nature. Nevertheless, the patient has no pleurisy or hemoptysis. No significant hypoxemia. No previous history of DVT or pulmonary embolism. The D-dimer elevation is most likely related to low underlying sepsis Hypoxic respiratory failure related to the above the patient is currently on 2 L of O2 nasal cannula, currently on room air oxygen Diabetes mellitus type 2 Hypertension Hypothyroidism Hyperlipidemia Plan Patient is currently on room air oxygen Continue IV Rocephin Continue heparin subcu for DVT prophylaxis No clinical suspicion for pulmonary embolism. The D-dimer is elevated due to underlying urine tract infection/sepsis Continue IV antibiotics Continue IV fluids Monitor renal function, creatinine is improving for now and the creatinine is down to 1.7, stable Provide incentive spirometer Urology consultation is appreciated
[2023-04-16] MEDS: amLODIPine 5 MG TAB PO STA (13:47)
--- NOTE | 2023-04-16 13:54 | P.PN ---
Subjective Progress Note Date: 04/16/23 Hospital course: Patient is a very pleasant 78-year-old female with a past medical history of hypertension, hyperlipidemia, [id number] diabetes mellitus, chronic kidney disease stage IIIb and hypothyroidism. She presented to the emergency department with a chief complaint of increased weakness, chills, and overall not feeling well. She underwent full evaluation in the emergency department. Vital signs upon arrival show blood pressure 130/65, heart rate 109, respiratory rate 18, temp 102.6 F, and SpO2 of 90% on room air. EKG was completed showing sinus tachycardia at 107 bpm with T wave inversion in aVL. Chest x-ray completed negative for acute cardiopulmonary process. Labs completed and reviewed. CBC showing mild leukocytosis with WBC count of 11.8 and bicytopenia with hemoglobin of 10.7 and platelet count of 139. BMP showing mild hyponatremia with sodium of 134 and an acute kidney injury with BUN of 32, creatinine 2.20, and GFR of 21 with baseline creatinine of 1.2. Liver profile unremarkable. Lipase 77. Troponin 0.015 and proBNP 1920. Urinalysis was positive for infection showing positive protein, glucose, ketones, blood, leukocytes, and 116 WBCs. Influenza A, influenza B, RSV, and COVID PCR were negative. D-dimer was obtained resulting at 2.43. Venous Dopplers were completed on bilateral lower extremities negative for DVTs. Ultrasound renal, kidneys, and bladder negative for acute abnormalities showing no evidence of hydronephrosis or nephrolithiasis reported. Patient was started on high intensity heparin infusion empirically for concerns of potential PE pending completion of a VQ scan. She was started on IV antibiotics with Rocephin 1 g every 24 hours for treatment of her UTI with sepsis. Patient was admitted under our services with consultation to pulmonology and urology. VQ scan showing low probability for PE, heparin infusion was discontinued. Troponins were trended resulting at 0.015, 0.014, and less than 0.012. Echocardiogram completed revealing preserved EF of 55 to 60% with mild mitral regurgitation. Blood culture reporting positive for E. coli. Patient remains on IV antibiotics with Rocephin dose increased to 2 g daily. Infectious disease was consulted. Urine culture obtained 04/10/2023 was also positive for E. coli. Repeat urine culture obtained this visit is negative. Patient with elevated pressures, home losartan was held secondary to acute kidney injury and therefore metoprolol was increased to 50 mg twice daily and amlodipine 5 mg daily was added to medication regimen. Physical exam: Patient seen and fully evaluated at the bedside this morning.. She was sitting up in the chair and reports feeling well this morning. Patient's daughter visiting at bedside. Patient's blood pressures have been running on the elevated side over the past 24 hours and have been as high as 196/93. Patient denies having any headache, lightheadedness, dizziness, chest pain, palpitations, or any other complaints at this time. She reports urinating without difficulties. Changes made to patient's antihypertensive medications and fluid infusion rate. Vital signs reviewed and stable. General: Nontoxic, no distress and appears stated age. Derm: Skin warm and dry, normal coloration for ethnicity. Head: Atraumatic, normocephalic and symmetric. Eyes: EOMs intact, no lid lag, and anicteric sclera Mouth: no lip lesions, mucus membranes moist Cardiovascular: regular rate and rhythm with normal S1S2, no murmur, positive posterior tibial pulses bilaterally, and cap refill < 2 seconds. Lungs: Respirations even, regular, and unlabored on room air. Abdominal: soft, nontender to palpation Ext: ROM intact. No gross muscle atrophy, scant edema, no contractures Neuro: Speech clear, face symmetrical and CN II-XII grossly intact with no noted focal neuro deficits Psych: Alert and oriented to person, place, time, and situation. Appropriate and pleasant affect. Assessment and Plan of Care: E. coli UTI with sepsis upon initial presentation E. coli bacteremia Acute kidney injury on stage III chronic kidney disease, improving Non-anion gap metabolic acidosis secondary to JOE, resolved status post bicarb infusion Bicytopenia, stable -Patient with sepsis upon arrival with heart rate 107, temp 102.6 F, and WBC count of 11.8. -Urine culture positive for E. coli -Blood culture positive for E. coli -Continue IV antibiotics with Rocephin 2 g daily, day 5 of antibiotics. -Infectious disease following, reviewed documentation in chart. -Nephrology following, discussed plan of care, making changes to antihypertensive medications and decreased lactated Ringer's to 50 mL/h at this time. -Hold nephrotoxic agents (losartan) -Patient to remain on continuous telemetry monitoring. Acute hypoxic respiratory failure, resolved patient maintaining SpO2 95% on room air. Elevated D-dimer -VQ scan showing low probability for PE, heparin infusion was discontinued -Pulmonology following, initially started patient on heparin infusion secondary to suspicion for PE and discontinuing after VQ scan is negative. -Oxygenation to be administered and titrated as needed to maintain SPO2 equal to or greater than 92% -Continue telemetry monitoring. -Monitor pulse-oximetry -Incentive Spirometry -Echocardiogram completed and results reviewed showing a preserved EF of 55 to 60% with mild mitral regurgitation. Diabetes mellitus -Hold Glucophage and Farxiga and patient placed on glycemic protocol with NovoLog sliding scale. -Hemoglobin A1c is 7.3%. Hypertension -Losartan was held secondary to JOE. Patient with elevated pressures, home losartan was held secondary to acute kidney injury and therefore metoprolol was increased to 50 mg twice daily and amlodipine 5 mg daily was added to medication regimen. Hyperlipidemia -Continue daily medication regimen with atorvastatin 20 mg daily. Hypothyroidism -Continue daily medication regimen with levothyroxine 75 mcg daily. Data and imaging reviewed: Blood culture positive for E. coli x 2 sets Urine culture positive for E. coli on 04/10/2023 Morning labs reviewed. CBC showing stable bicytopenia with hemoglobin of 9.5 and platelet count of 122. BMP showing BUN of 17, creatinine 1.72, GFR of 28; baseline creatinine is 1.2. Magnesium 1.9. Liver profile unremarkable. Vital signs reviewed and stable. Blood pressure 167/89, heart rate 91, respiratory rate 16, temp 98.2 F, SpO2 of 94% on room air. CODE STATUS: Full code DVT prophylaxis: Heparin Anticipated discharge date: Likely within the next 24-[address]: Home Patient was seen independently by Nurse Pracitioner. This document was prepared using [employer] dictation software. Please allow for errors in ornament setter, while rare they do occur. I reviewed the documentation as provided by the MINOO above, who is the original author of this note. I agree with the documented assessment and plan, with the following changes: none Objective - Vital Signs Vital signs: Vital Signs Temp 98.2 F 04/16/23 08:17 Pulse 91 04/16/23 08:17 Resp 16 04/16/23 08:17 BP 167/89 04/16/23 08:17 Pulse Ox 94 L 04/16/23 08:17 FiO2 Intake & Output 04/15/23 04/16/2324 18:59 06:59 18:59 Intake Total 220 Output Total 250 Balance -30 Intake: Oral 220 Output: Urine 250 Other: Voiding Method Toilet Toilet - Labs CBC & Chem 7: 04/17/23 06:14 04/17/23 06:14 Labs: Abnormal Lab Results - Last 24 Hours (Table) 04/15/23 04/15/23 04/15/23 Range/Units 09:32 09:32 11:30 RBC 3.25 L (3.80-5.40) m/uL Hgb 10.3 L (11.4-16.0) gm/dL Hct 31.0 L (34.0-46.0) % Plt Count 140 L (150-450) k/uL BUN 20 H (7-17) mg/dL Creatinine 1.72 H (0.52-1.04) mg/dL Glucose 145 H (74-99) mg/dL POC Glucose (mg/dL) 132 H (70-110) mg/dL 04/15/23 04/15/23 04/16/23 Range/Units 16:36 20:18 06:02 RBC (3.80-5.40) m/uL Hgb (11.4-16.0) gm/dL Hct (34.0-46.0) % Plt Count (150-450) k/uL BUN (7-17) mg/dL Creatinine (0.52-1.04) mg/dL Glucose (74-99) mg/dL POC Glucose (mg/dL) 138 H 124 H 146 H (70-110) mg/dL Microbiology - Last 24 Hours (Table) 04/12/23 19:10 Blood Culture Gram Stain - Final Blood Blood Culture - Final Escherichia coli 04/12/23 18:55 Blood Culture Gram Stain - Final Blood Blood Culture - Final Escherichia coli
--- NOTE | 2023-04-16 14:30 | P.PN ---
Subjective Progress Note Date: 04/16/23 Principal diagnosis: Reason for follow-up is UTI and bacteremia Patient is a 78-year-old female with a past medical history significant for diabetes mellitus hypertension hyperlipidemia osteoarthritis history of bilateral hip replacement presenting to the ER for evaluation of fever and chills, patient be diagnosed with a UTI subsequently blood cultures came back positive with gram-negative bacilli prompting this infectious disease consultation. On today's evaluation that is 04/16/2023,the patient remains to be afebrile, patient is on room air not requiring supplemental oxygen and denies any shortness of breath no chest pain or cough.Patient denies having any nausea or vomiting, no abdominal pain and no diarrhea has been reported White count of 8.2, creatinine 1.72 blood culture with an E. coli sensitive pathogen Objective - Vital Signs Vital signs: Vital Signs Temp 98.6 F 04/16/23 12:00 Pulse 74 04/16/23 12:00 Resp 16 04/16/23 12:00 BP 152/84 04/16/23 12:00 Pulse Ox 96 04/16/23 12:00 FiO2 Intake & Output 04/15/23 04/16/23 04/16/23 18:59 06:59 18:59 Intake Total 220 240 Output Total 250 Balance -30 240 Intake: Oral 220 240 Output: Urine 250 Other: Voiding Method Toilet Toilet Toilet - Exam GENERAL DESCRIPTION: An elderly female up in the chair in no distress RESPIRATORY SYSTEM: Unlabored breathing , decreased breath sounds at bases HEART: S1 S2 regular rate and rhythm , ABDOMEN: Soft , no tenderness EXTREMITIES: No edema feet - Labs CBC & Chem 7: 04/16/23 08:08 04/16/23 08:08 Labs: Abnormal Lab Results - Last 24 Hours (Table) 04/15/23 04/15/23 04/16/23 Range/Units 16:36 20:18 06:02 RBC (3.80-5.40) m/uL Hgb (11.4-16.0) gm/dL Hct (34.0-46.0) % Plt Count (150-450) k/uL Carbon Dioxide (22-30) mmol/L Creatinine (0.52-1.04) mg/dL Glucose (74-99) mg/dL POC Glucose (mg/dL) 138 H 124 H 146 H (70-110) mg/dL Total Protein (6.3-8.2) g/dL Albumin (3.5-5.0) g/dL 04/16/23 04/16/23 04/16/23 Range/Units 08:08 08:08 11:19 RBC 3.14 L (3.80-5.40) m/uL Hgb 9.5 L (11.4-16.0) gm/dL Hct 29.8 L (34.0-46.0) % Plt Count 122 L (150-450) k/uL Carbon Dioxide 21 L (22-30) mmol/L Creatinine 1.72 H (0.52-1.04) mg/dL Glucose 143 H (74-99) mg/dL POC Glucose (mg/dL) 112 H (70-110) mg/dL Total Protein 6.0 L (6.3-8.2) g/dL Albumin 3.4 L (3.5-5.0) g/dL Microbiology - Last 24 Hours (Table) 04/12/23 19:10 Blood Culture Gram Stain - Final Blood Blood Culture - Final Escherichia coli 04/12/23 18:55 Blood Culture Gram Stain - Final Blood Blood Culture - Final Escherichia coli Assessment and Plan (1) Sepsis Current Visit: Yes Status: Acute Code(s): A41.9 - SEPSIS, UNSPECIFIED ORGANISM SNOMED Code(s): 77369526 (2) Allergy to sulfa drugs Current Visit: Yes Status: Acute Code(s): Z88.2 - ALLERGY STATUS TO SULFONAMIDES SNOMED Code(s): 66277326 (3) Gram-negative bacteremia Current Visit: Yes Status: Acute Code(s): R78.81 - BACTEREMIA SNOMED Code(s): 702502996353 (4) UTI (urinary tract infection) Current Visit: Yes Status: Acute Code(s): N39.0 - URINARY TRACT INFECTION, SITE NOT SPECIFIED SNOMED Code(s): 02013518 Plan: 1patient presented hospital with sepsis in this patient who did have a fever tachycardia elevated white count patient did have urinary symptoms source likely pyelonephritis did have elevated creatinine but ultrasound did not show any obstructive uropathy 2-E. coli bacteremia source likely urinary 3-patient has shown clinical improvement and will continue with Rocephin 2 g daily while inpatient and plan to finish therapy with oral Ceftin x 10 days Dictation was produced using [employer] software. please excuse any grammatical, word or spelling errors. Time with Patient: Less than 30
[2023-04-16 16:33] LABS: Glucose,Whole Blood 116 mg/dL (70-110)
[2023-04-16 20:22] LABS: Glucose,Whole Blood 173 mg/dL (70-110)
[2023-04-16] MEDS: METOPROLOL TARTRATE 50 MG TAB PO SCH (21:32)
[2023-04-17 06:04] LABS: Glucose,Whole Blood 134 mg/dL (70-110)
[2023-04-17 07:02] LABS: HCT 30.1 % (34.0-46.0); HGB 9.8 gm/dL (11.4-16.0); Hypochromasia Slight; MCHC 32.6 g/dL (31.0-37.0); MCV 94.9 fL (80.0-100.0); Platelet Count 158 k/uL (150-450); RBC 3.17 m/uL (3.80-5.40); RDW 14.7 % (11.5-15.5); WBC 9.5 k/uL (3.8-10.6)
[2023-04-17 07:16] LABS: ALT 17 U/L (4-34); AST 31 U/L (14-36); African American GFR (CKD) 35 (>60 ml/min/1.73 sqM); Albumin 3.3 g/dL (3.5-5.0); Alkaline Phosphatase 98 U/L (38-126); Anion Gap 6 mmol/L; Blood Urea Nitrogen 14 mg/dL (7-17); Calcium 8.8 mg/dL (8.4-10.2); Carbon Dioxide 25 mmol/L (22-30); Chloride 107 mmol/L (98-107); Glucose 126 mg/dL (74-99); Non-African American GFR(CKD) 31 (>60 ml/min/1.73 sqM); Potassium 4.3 mmol/L (3.5-5.1); Sodium 138 mmol/L (137-145); Total Bilirubin 0.5 mg/dL (0.2-1.3); Total Protein 5.8 g/dL (6.3-8.2)
[2023-04-17 09:04] VITALS: BP 136/73; PULSE 85; RESP 18; TEMP 98.3
--- NOTE | 2023-04-17 09:58 | P.DS ---
Providers Date of admission: 04/12/23 21:36 Expected date of discharge: 04/17/23 Attending physician: Toni Mensah MD Consults: 04/12/23 21:33 Consult Physician Routine Consulting Provider: Tom Enciso Consult Reason/Comments: hypoxia of unknown etiology Do you want consulting provider notified?: Yes 04/12/23 23:40 Consult Physician Routine Consulting Provider: Brannon De La Rosa Consult Reason/Comments: Seen outpatient; complicated UTI Do you want consulting provider notified?: Yes, Notify in am 04/13/23 08:25 Consult Physician Routine Consulting Provider: Chantell Menendez Consult Reason/Comments: JOE on CKD Do you want consulting provider notified?: Yes 04/13/23 14:46 Consult Physician Routine Consulting Provider: Keshia Roper Consult Reason/Comments: bacteremia Do you want consulting provider notified?: Yes Primary care physician: [facility] Course: Discharge Diagnosis: E. coli UTI with sepsis upon initial presentation. Patient received prolonged course of IV antibiotics with Rocephin, evaluated by infectious disease, and is being discharged home on a prolonged antibiotic course with Ceftin 500 mg twice daily for an additional 10 days. E. coli bacteremia. Secondary to E. coli UTI. Patient received prolonged course of IV antibiotics with Rocephin, evaluated by infectious disease, and is being discharged home on a prolonged antibiotic course with Ceftin 500 mg twice daily for an additional 10 days. Acute kidney injury on stage III chronic kidney disease, improving. Renal function remains slightly elevated and at time of discharge BUN 14, creatinine 1.60, and GFR of 31 with baseline creatinine of 1.2. Patient to have a repeat BMP in 3 days and follow-up outpatient with geological sample tester in 1 week. Non-anion gap metabolic acidosis secondary to JOE. Resolved status post bicarb infusion Bicytopenia, stable Acute hypoxic respiratory failure, resolved. Patient maintaining SpO2 95% on room air. Elevated D-dimer. VQ scan showing low probability for PE, Diabetes mellitus. Patient to resume Glucophage and continue to hold Farxiga secondary to recurrent UTIs and acute kidney injury. Discussed in detail with geological sample tester recommending continuing to hold Farxiga until outpatient follow-up in their office and if indicated they will resume on outpatient basis. Hypertension. Losartan was held secondary to JOE and patient was started on amlodipine 5 mg daily and metoprolol was increased to 50 mg daily throughout hospitalization. Blood pressures much better controlled 130s to 140s systolic. Continue to hold losartan until follow-up visit with geological sample tester, Dr. Menendez in 1 week. If needed losartan may be started on outpatient basis once renal function is back to baseline. Hyperlipidemia. Continue daily medication regimen with atorvastatin 20 mg daily. Hypothyroidism. Continue daily medication regimen with levothyroxine 75 mcg daily. Hemoglobin A1c is 7.3%. Hospital Course: Patient is a very pleasant 78-year-old female with a past medical history of hypertension, hyperlipidemia, [id number] diabetes mellitus, chronic kidney disease stage IIIb and hypothyroidism. She presented to the emergency department with a chief complaint of increased weakness, chills, and overall not feeling well. She underwent full evaluation in the emergency department. Vital signs upon arrival show blood pressure 130/65, heart rate 109, respiratory rate 18, temp 102.6 F, and SpO2 of 90% on room air. EKG was completed showing sinus tachycardia at 107 bpm with T wave inversion in aVL. Chest x-ray completed negative for acute cardiopulmonary process. Labs completed and reviewed. CBC showing mild leukocytosis with WBC count of 11.8 and bicytopenia with hemoglobin of 10.7 and platelet count of 139. BMP showing mild hyponatremia with sodium of 134 and an acute kidney injury with BUN of 32, creatinine 2.20, and GFR of 21 with baseline creatinine of 1.2. Liver profile unremarkable. Lipase 77. Troponin 0.015 and proBNP 1920. Urinalysis was positive for infection showing positive protein, glucose, ketones, blood, leukocytes, and 116 WBCs. Influenza A, influenza B, RSV, and COVID PCR were negative. D-dimer was obtained resulting at 2.43. Venous Dopplers were completed on bilateral lower extremities negative for DVTs. Ultrasound renal, kidneys, and bladder negative for acute abnormalities showing no evidence of hydronephrosis or nephrolithiasis reported. Patient was started on high intensity heparin infusion empirically for concerns of potential PE pending completion of a VQ scan. She was started on IV antibiotics with Rocephin 1 g every 24 hours for treatment of her UTI with sepsis. Patient was admitted under our services with consultation to pulmonology and urology. VQ scan showing low probability for PE, heparin infusion was discontinued. Troponins were trended resulting at 0.015, 0.014, and less than 0.012. Echocardiogram completed revealing preserved EF of 55 to 60% with mild mitral regurgitation. Blood culture reporting positive for E. coli. Patient remains on IV antibiotics with Rocephin dose increased to 2 g daily. Infectious disease was consulted. Urine culture obtained 04/10/2023 was also positive for E. coli. Repeat urine culture obtained this visit is negative. Patient with elevated pressures, home losartan was held secondary to acute kidney injury and therefore metoprolol was increased to 50 mg twice daily and amlodipine 5 mg daily was added to medication regimen. Patient received prolonged course of IV antibiotics for treatment of her E. coli bacteremia and E. coli UTI with Rocephin, evaluated by infectious disease, and is being discharged home on a prolonged antibiotic course with Ceftin 500 mg twice daily for an additional 10 days. Patient is medically stable for discharge at this time. Patient to follow-up outpatient with PCP in 1 to 2 days, nephrology in 1 week, and infectious disease in 2 weeks. Physical exam: Vital signs reviewed and stable. General: Nontoxic, no distress and appears stated age. Derm: Skin warm and dry, normal coloration for ethnicity. Head: Atraumatic, normocephalic and symmetric. Eyes: EOMs intact, no lid lag, and anicteric sclera Mouth: no lip lesions, mucus membranes moist Cardiovascular: regular rate and rhythm with normal S1S2, no murmur, positive posterior tibial pulses bilaterally, and cap refill < 2 seconds. Lungs: Respirations even, regular, and unlabored on room air. Abdominal: soft, nontender to palpation Ext: ROM intact. No gross muscle atrophy, scant edema, no contractures Neuro: Speech clear, face symmetrical and CN II-XII grossly intact with no noted focal neuro deficits Psych: Alert and oriented to person, place, time, and situation. Appropriate and pleasant affect. A total of 38 minutes of time were spent preparing this complex discharge summary. Pt was discharged on 04/17/2023 at 9:57 AM. Patient was seen independently by Nurse Practitioner. This document was prepared using [employer] dictation software. Please allow for errors in electronics repair technician while rare they do occur. I reviewed the documentation as provided by the MINOO above, who is the original author of this note. I agree with the documented assessment and plan, with the following changes: none Patient Condition at Discharge: Stable Plan - Discharge Summary Discharge Rx Participant: No New Discharge Prescriptions: New Metoprolol Tartrate [Lopressor] 50 mg PO BID 90 Days #180 tab amLODIPine [Norvasc] 5 mg PO DAILY 90 Days #90 tab cefUROXime axetiL [Ceftin] 500 mg PO BID 10 Days #20 tab Continue Atorvastatin [Lipitor] 20 mg PO DAILY Imipramine [Tofranil] 10 mg PO DAILY Sertraline [Zoloft] 100 mg PO DAILY Pantoprazole Sodium [Protonix] 40 mg PO DAILY Ferrous Sulfate [Iron] 650 mg PO MOWEFR Vibegron [Gemtesa] 75 mg PO DAILY Nitrofurantoin Monohyd/M-Cryst [Macrobid] 100 mg PO Q12HR Aspirin [Adult Low Dose Aspirin EC] 81 mg PO DAILY Cholecalciferol [Vitamin D3 (25 Mcg = 1000 Iu)] 25 mcg PO DAILY busPIRone HCL 15 mg PO BID metFORMIN HCL ER [Glucophage XR] 500 mg PO DAILY Levothyroxine Sodium [Synthroid] 75 mcg PO DAILY Calcium Carbonate [Calcium] 600 mg PO DAILY Discontinued Losartan Potassium 100 mg PO DAILY Metoprolol Tartrate [Lopressor] 25 mg PO BID Dapagliflozin Propanediol [Farxiga] 5 mg PO DAILY Discharge Medication List Atorvastatin [Lipitor] 20 mg PO DAILY 03/23/18 [History] Imipramine [Tofranil] 10 mg PO DAILY 03/23/18 [History] Ferrous Sulfate [Iron] 650 mg PO MOWEFR 04/09/20 [History] Pantoprazole Sodium [Protonix] 40 mg PO DAILY 04/09/20 [History] Sertraline [Zoloft] 100 mg PO DAILY 04/09/20 [History] busPIRone HCL 15 mg PO BID 06/14/21 [History] Aspirin [Adult Low Dose Aspirin EC] 81 mg PO DAILY 04/12/23 [History] Calcium Carbonate [Calcium] 600 mg PO DAILY 04/12/23 [History] Cholecalciferol [Vitamin D3 (25 Mcg = 1000 Iu)] 25 mcg PO DAILY 04/12/23 [History] Levothyroxine Sodium [Synthroid] 75 mcg PO DAILY 04/12/23 [History] Nitrofurantoin Monohyd/M-Cryst [Macrobid] 100 mg PO Q12HR 04/12/23 [History] Vibegron [Gemtesa] 75 mg PO DAILY 04/12/23 [History] metFORMIN HCL ER [Glucophage XR] 500 mg PO DAILY 04/12/23 [History] Metoprolol Tartrate [Lopressor] 50 mg PO BID 90 Days #180 tab 04/17/23 [Rx] amLODIPine [Norvasc] 5 mg PO DAILY 90 Days #90 tab 04/17/23 [Rx] cefUROXime axetiL [Ceftin] 500 mg PO BID 10 Days #20 tab 04/17/23 [Rx] Follow up Appointment(s)/Referral(s): Chantell Menendez MD [STAFF PHYSICIAN] - 1 Week (Office unavailable to schedule appointment, patient to ensure, when making a follow up that the office is aware this is following a hospital stay.) Carlos Ashraf MD [Primary Care Provider] - 1-2 days (Office unavailable to schedule appointment, patient to ensure, when making a follow up that the office is aware this is following a hospital stay.) Keshia Roper MD [STAFF PHYSICIAN] - 1 Week (Office unavailable to schedule appointment, patient to ensure, when making a follow up that the office is aware this is following a hospital stay.) Ambulatory/Diagnostic Orders: Basic Metabolic Panel [LAB.AMB] Time Frame: 3 Days, Location: None Selected Patient Instructions/Handouts: Urinary Tract Infection in Women (DC) Activity/Diet/Wound Care/Special Instructions: Activity: As tolerated. Take breaks as needed. Diet: Heart healthy and carb consistent diet. Avoid salts, or foods with hidden salts such as canned or boxed foods and frozen dinners. Extra salt makes your heart work harder and traps the fluid in your body for longer. Special Instructions: Take all of your medications as directed and remember to keep all of your doctor's appointments and follow-up as needed. Peega to be held at this time until outpatient follow-up with your geological sample tester, Dr. Menendez secondary to your recent recurrent UTIs and acute kidney injury. Thank you for allowing us to participate in your care, it was truly a pleasure having you for our patient!!! Discharge Disposition: HOME SELF-CARE
--- NOTE | 2023-04-17 10:24 | P.PN ---
Subjective Patient is seen in follow-up for acute kidney injury. Renal function slowly improving with creatinine 1.6 today. Denies chest pain or shortness of breath. Has been voiding. Oral intake is good. Vital signs are stable. General: No acute distress. HEENT: Head exam is unremarkable. No acute distress. LUNGS: Lungs no audible rhonchi or wheezes. HEART: Rate and Rhythm are regular. ABDOMEN: Nontender. EXTREMITITES: No edema. Objective - Vital Signs Vital signs: Vital Signs Temp 98.3 F 04/17/23 08:30 Pulse 85 04/17/23 08:30 Resp 18 04/17/23 08:30 BP 136/73 04/17/23 08:30 Pulse Ox 95 04/17/23 08:30 FiO2 Intake & Output 04/16/23 04/17/23 04/17/23 18:59 06:59 18:59 Intake Total 350 118 Balance 350 118 Intake: Oral 350 118 Other: Voiding Method Toilet Toilet # Voids 4 - Labs CBC & Chem 7: 04/17/23 06:14 04/17/23 06:14 Labs: Abnormal Lab Results - Last 24 Hours (Table) 04/16/23 04/16/23 04/16/23 Range/Units 11:19 16:28 20:20 RBC (3.80-5.40) m/uL Hgb (11.4-16.0) gm/dL Hct (34.0-46.0) % Creatinine (0.52-1.04) mg/dL Glucose (74-99) mg/dL POC Glucose (mg/dL) 112 H 116 H 173 H (70-110) mg/dL Total Protein (6.3-8.2) g/dL Albumin (3.5-5.0) g/dL 04/17/23 04/17/23 04/17/23 Range/Units 06:02 06:14 06:14 RBC 3.17 L (3.80-5.40) m/uL Hgb 9.8 L (11.4-16.0) gm/dL Hct 30.1 L (34.0-46.0) % Creatinine 1.60 H (0.52-1.04) mg/dL Glucose 126 H (74-99) mg/dL POC Glucose (mg/dL) 134 H (70-110) mg/dL Total Protein 5.8 L (6.3-8.2) g/dL Albumin 3.3 L (3.5-5.0) g/dL Assessment and Plan Plan: Assessment: 1. Acute kidney injury secondary to ATN secondary to severe sepsis. Kidney ultrasound showed atrophic right kidney. No hydronephrosis noted. Creatinine 1.2 in March 2022. Creatinine peaked at 2.35 this admission and is 1.6 today. 2. Severe sepsis secondary to E. coli UTI and bacteremia on antibiotics. 3. Benign hypertension. Controlled. 4. DM. Plan: Heplock IV fluids. Continue to hold ARB and SGLT2i for now. Follow-up outpatient 1 week postdischarge.
--- NOTE | 2023-04-17 11:15 | P.PN ---
Subjective Progress Note Date: 04/17/23 Principal diagnosis: Reason for follow-up is UTI and bacteremia Patient is a 78-year-old female with a past medical history significant for diabetes mellitus hypertension hyperlipidemia osteoarthritis history of bilateral hip replacement presenting to the ER for evaluation of fever and chills, patient be diagnosed with a UTI subsequently blood cultures came back positive with gram-negative bacilli prompting this infectious disease consultation. On today's evaluation that is 04/17/2023, the patient continues to be afebrile, the patient is on room air and breathing comfortably, the Pt denies having any chest pain or cough, the patient denies having any abdominal pain no vomiting or any diarrhea per patient. Patient did have white count of 9.5, creatinine is 1.60 Objective - Vital Signs Vital signs: Vital Signs Temp 98.3 F 04/17/23 08:30 Pulse 85 04/17/23 08:30 Resp 18 04/17/23 08:30 BP 136/73 04/17/23 08:30 Pulse Ox 95 04/17/23 08:30 FiO2 Intake & Output 04/16/23 04/17/23 04/17/23 18:59 06:59 18:59 Intake Total 350 118 Balance 350 118 Intake: Oral 350 118 Other: Voiding Method Toilet Toilet # Voids 4 - Exam GENERAL DESCRIPTION: An elderly female up in the chair in no distress RESPIRATORY SYSTEM: Unlabored breathing , decreased breath sounds at bases HEART: S1 S2 regular rate and rhythm , ABDOMEN: Soft , no tenderness EXTREMITIES: No edema feet - Labs CBC & Chem 7: 04/17/23 06:14 04/17/23 06:14 Labs: Abnormal Lab Results - Last 24 Hours (Table) 04/16/23 04/16/23 04/16/23 Range/Units 11:19 16:28 20:20 RBC (3.80-5.40) m/uL Hgb (11.4-16.0) gm/dL Hct (34.0-46.0) % Creatinine (0.52-1.04) mg/dL Glucose (74-99) mg/dL POC Glucose (mg/dL) 112 H 116 H 173 H (70-110) mg/dL Total Protein (6.3-8.2) g/dL Albumin (3.5-5.0) g/dL 04/17/23 04/17/23 04/17/23 Range/Units 06:02 06:14 06:14 RBC 3.17 L (3.80-5.40) m/uL Hgb 9.8 L (11.4-16.0) gm/dL Hct 30.1 L (34.0-46.0) % Creatinine 1.60 H (0.52-1.04) mg/dL Glucose 126 H (74-99) mg/dL POC Glucose (mg/dL) 134 H (70-110) mg/dL Total Protein 5.8 L (6.3-8.2) g/dL Albumin 3.3 L (3.5-5.0) g/dL Assessment and Plan (1) Sepsis Current Visit: Yes Status: Acute Code(s): A41.9 - SEPSIS, UNSPECIFIED ORGANISM SNOMED Code(s): 09833331 (2) Allergy to sulfa drugs Current Visit: Yes Status: Acute Code(s): Z88.2 - ALLERGY STATUS TO SULFONAMIDES SNOMED Code(s): 04912011 (3) Gram-negative bacteremia Current Visit: Yes Status: Acute Code(s): R78.81 - BACTEREMIA SNOMED Code( s): 760766364452 (4) UTI (urinary tract infection) Current Visit: Yes Status: Acute Code(s): N39.0 - URINARY TRACT INFECTION, SITE NOT SPECIFIED SNOMED Code(s): 95184481 Plan: 1patient [facility] with sepsis in this patient who did have a fever tachycardia elevated white count patient did have urinary symptoms source likely pyelonephritis did have elevated creatinine but ultrasound did not show any obstructive uropathy 2-E. coli bacteremia source likely urinary in this patient predominantly urinary symptoms 3-patient has shown clinical improvement and will finish therapy with oral Ceftin x 10 days on discharge and close outpatient follow-up Dictation was produced using [email or web address] dictation software. please excuse any grammatical, word or spelling errors. Time with Patient: Less than 30
[2023-04-17 11:30] LABS: Glucose,Whole Blood 127 mg/dL (70-110)
--- NOTE | 2023-04-17 11:58 | P.PN ---
Subjective Progress Note Date: 04/17/23 This is a 78-year-old female patient with known history of recurrent urine tract infection. I was consulted on this patient due to suspicion for pulmonary embolism. In fact this patient came into the hospital havingSymptoms of UTI. She was initially seen by the emergency physician complaining of discomfort, upon urination, and the patient also reported intermittent nausea. She denies having any chest pain. She denies having any shortness of breath. No reported fever or chills. No cough or sputum production. She had dysuria. She has been having 3-4 urine tract infection over the past 5 weeks. In the emergency, a D- dimer was done and the D-dimer turned out to be elevated at 2.43. Based on that, the patient was started on IV heparin. Further workup was done including a Doppler of the lower extremity that showed no evidence of any DVT and a VQ scan that showed low to intermediate probability. The patient denies having any previous history of DVT or pulmonary embolism. She has been active at home. No recent surgeries. Her current creatinine is at 2.35 which is consistent of an a cute kidney injury. The patient is unable to undergo a CTA of the chest. She is currently on 3 L of oxygen by nasal cannula and pulse ox around 96 to 99%. No personal or family history of DVT or pulmonary embolism. The patient is currently on IV fluids. She was also started on IV Rocephin. She has seen urology in the past for recurrent UTIs. On today's evaluation of 04/14/2023, the patient is on room air oxygen. The patient was taken off the IV heparin. The patient is on subcu heparin for DVT prophylaxis. Meanwhile, further investigation and cultures revealed that the patient had E. coli sepsis related to an underlying urine tract infection. The patient is currently on IV Rocephin. In fact, the patient was septic at the time of admission which explains the elevation of the D-dimers.The patient otherwise doing well. No chest pain. No shortness of breath. BUN is at 23 with a creatinine of 1.9 and there is interval improvement of creatinine. The white cell count is 6.7 with a hemoglobin 9.8 and a platelet count of 131. Otherwise, no other significant events over the past 24 hours. The patient was also seen by urology. On 04/15/2023, seen the patient for a follow-up. Patient is doing well. Sitting up in a chair and she is on room air oxygen. As mentioned, she has gram- negative in her blood secondary to urinary tract infection the patient remains on IV Rocephin. She had some insomnia overnight and this morning she is feeling adequate. Meanwhile, the blood work that was done today showed a WBC count of 9.4, hemoglobin of 10.3 and a platelet count of 140. BUN is at 20 with a creatinine 1.7 and a sodium level is at 138. Noted the patient renal function continues to improve For now. Meanwhile, the blood work that was done gradually. She remains on IV Rocephin. She remains also on IV fluids. No altered mentation. No chest pain. No aspiration. 04/16/2023, the patient is being seen in follow-up regarding her E. coli septicemia originating from urine tract infection the patient remains on IV Rocephin. She is still on room air oxygen. She is on heparin subcu for DVT prophylaxis. No new complaints otherwise for now.The blood work from today show s a white cell count of 8.2 with a hemoglobin 9.5 and a platelet count of 122. BUN is at 17 with a creatinine of 1.7 and sodium levels at 138. Noted the creatinine was improving and he says stayed stable since yesterday. The patient is seen today April 17, 2023 in follow-up on the selective care unit. She is currently sitting up in a chair. Awake and alert in no acute distress. She denies any worsening shortness of breath, cough or congestion. She is maintaining good O2 saturation in the mid 90s on room air. She is been afebrile. Hemodynamically stable. Blood culture was positive for E. coli. Urine culture revealed no growth. White count 9.5. Hemoglobin 9.8. Platelets 158. Sodium 138. Potassium 4.3. Bicarb 25. BUN 14. Creatinine 0.60. Glucose 126. She is currently on ceftriaxone. Heparin for DVT prophylaxis. Objective - Vital Signs Vital signs: Vital Signs Temp 98.3 F 04/17/23 08:30 Pulse 85 04/17/23 08:30 Resp 18 04/17/23 08:30 BP 136/73 04/17/23 08:30 Pulse Ox 95 04/17/23 08:30 FiO2 Intake & Output 04/16/23 04/17/23 04/17/23 18:59 06:59 18:59 Intake Total 350 118 Balance 350 118 Intake: Oral 350 118 Other: Voiding Method Toilet Toilet Toilet # Voids 4 - Exam GENERAL EXAM: Alert, active, pleasant 78-year-old female, on room air, comfortable in no apparent distress. HEAD: Normocephalic. EYES: Normal reaction of pupils, equal size. NOSE: Clear with pink turbinates. THROAT: No erythema or exudates. NECK: No masses, no JVD. CHEST: No chest wall deformity. LUNGS: Equal air entry with no crackles, wheeze, rhonchi or dullness. CVS: S1 and S2 normal with no audible murmur, regular rhythm. ABDOMEN: No hepatosplenomegaly, normal bowel sounds, no guarding or rigidity. SPINE: No scoliosis or deformity. No CVA tenderness. SKIN: No rashes CENTRAL NERVOUS SYSTEM: No focal deficits, tone is normal in all 4 extremities. EXTREMITIES: There is no peripheral edema. No clubbing, no cyanosis. Peripheral pulses are intact. - Labs CBC & Chem 7: 04/17/23 06:14 04/17/23 06:14 Labs: Abnormal Lab Results - Last 24 Hours (Table) 04/16/23 04/16/23 04/17/23 Range/Units 16:28 20:20 06:02 RBC (3.80-5.40) m/uL Hgb (11.4-16.0) gm/dL Hct (34.0-46.0) % Creatinine (0.52-1.04) mg/dL Glucose (74-99) mg/dL POC Glucose (mg/dL) 116 H 173 H 134 H (70-110) mg/dL Total Protein (6.3-8.2) g/dL Albumin (3.5-5.0) g/dL 04/17/23 04/17/23 04/17/23 Range/Units 06:14 06:14 11:28 RBC 3.17 L (3.80-5.40) m/uL Hgb 9.8 L (11.4-16.0) gm/dL Hct 30.1 L (34.0-46.0) % Creatinine 1.60 H (0.52-1.04) mg/dL Glucose 126 H (74-99) mg/dL POC Glucose (mg/dL) 127 H (70-110) mg/dL Total Protein 5.8 L (6.3-8.2) g/dL Albumin 3.3 L (3.5-5.0) g/dL Assessment and Plan Assessment: Urine tract infection, with secondary sepsis and the patient has E. coli sepsis secondary to underlying urine tract infection, patient is currently on IV Rocephin Acute kidney injury secondary to above urine tract infection and possibly intravascular volume depletion and dehydration. The patient continues to have renal dysfunction and the creatinine is down to 1.6 Elevated D-dimer most likely secondary to underlying urine tract infection. No clinically suspicion for pulmonary embolism. Doppler of the lower extremity was negative and the VQ scan was low intermediate in nature. Nevertheless, the patient has no pleurisy or hemoptysis. No significant hypoxemia. No previous history of DVT or pulmonary embolism. The D-dimer elevation is most likely related to low underlying sepsis Hypoxic respiratory failure related to the above, recovered, currently on room air oxygen Diabetes mellitus type 2 Hypertension Hypothyroidism Hyperlipidemia Plan: The patient was seen and evaluated Labs and medications reviewed Currently stable and on room air Cleared for discharge from the pulmonary standpoint Antibiotics per ID services This patient was seen independently by the pulmonary nurse practitioner addressing pulmonary issues I have personally seen and examined the patient, performed the documentation and the assessment and plan as written. Number of minutes spent on the visit: 22.
== END 2023-04-17 11:56 | disposition home or self-care (01) | DRG 871 ==
LOC: EC 18:13 → 3SCARD 21:36
PROVIDERS: ADMIT Internal Medicine; ATTEND Internal Medicine
DX: A41.51 Sepsis due to Escherichia coli [E. coli] (principal); J96.01 Acute respiratory failure with hypoxia; N17.0 Acute kidney failure with tubular necrosis; N39.0 Urinary tract infection, site not specified; E87.20 Acidosis, unspecified; E87.1 Hypo-osmolality and hyponatremia; Z59.00 Homelessness unspecified; Z11.52 Encounter for screening for COVID-19; R65.20 Severe sepsis without septic shock; E11.22 Type 2 diabetes mellitus with diabetic chronic kidney disease; B96.20 Unspecified Escherichia coli [E. coli] as the cause of diseases classified elsewhere; D64.9 Anemia, unspecified; E03.9 Hypothyroidism, unspecified; I12.9 Hypertensive chronic kidney disease with stage 1 through stage 4 chronic kidney disease, or unspecified chronic kidney disease; N18.32 Chronic kidney disease, stage 3b; E78.5 Hyperlipidemia, unspecified; E86.0 Dehydration; F41.9 Anxiety disorder, unspecified; N39.46 Mixed incontinence; R31.0 Gross hematuria; Z79.82 Long term (current) use of aspirin; Z79.84 Long term (current) use of oral hypoglycemic drugs; Z87.440 Personal history of urinary (tract) infections; Z90.710 Acquired absence of both cervix and uterus; Z96.649 Presence of unspecified artificial hip joint; E86.9 Volume depletion, unspecified; G47.00 Insomnia, unspecified; Z79.2 Long term (current) use of antibiotics; Z79.890 Hormone replacement therapy; Z79.899 Other long term (current) drug therapy; Z96.643 Presence of artificial hip joint, bilateral; Z88.2 Allergy status to sulfonamides
CPT/HCPCS: 36415; 71046; 76770; 78582; 80048; 80053; 81001; 82150; 83036; 83605; 83690; 83735; 83880; 84484; 85025; 85027; 85379; 85610; 85730; 87040; 87077; 87086; 87186; 87636; 93005; 93306; 93970; 96361; 96365; 96366; 96368; 99291

== ENCOUNTER → 2023-08-30 | Outpatient (CLI) | payer MEDICARE ==
--- NOTE | 2023-08-31 08:25 | MM ---
Reason for Exam: Screening (asymptomatic). Last mammogram was performed 1 year(s) and 1 month(s) ago. Patient History: Menarche at age 12. First Full-Term at age 20. Left ovary removed at age 56. Right ovary removed at age 56. Hysterectomy at age 56. Postmenopausal. Estrogen for 2 years from age 56 until age 58. 04/24/2020, Benign Core Biopsy on the right side. 04/10/2018, Benign Core Biopsy on the right side. 06/24/2021, US discontinued breast bx RT on the right side. Mother had breast cancer, age 38. Risk Values: Glenis 5 year model risk: 4.9%. NCI Lifetime model risk: 8.7%. Prior Study Comparison: 10/26/2020 Right Diagnostic Mammogram, [facility]. 05/06/2021 Bilateral Diagnostic Mammogram, [facility]. 08/03/2022 Bilateral MG 3D screening mammo w/cad, [facility]. Tissue Density: There are scattered areas of fibroglandular density. Findings: Analyzed By CAD. There is no suspicious group of microcalcifications or new suspicious mass in either breast. Overall Assessment: Benign, BI-RAD 2 Management: Screening Mammogram of both breasts in 1 year. . Patient should continue monthly self-breast exams. A clinical breast exam by your physician is recommended on an annual basis. This exam should not preclude additional follow-up of suspicious palpable abnormalities. Note on Glenis scores and lifetime risk: 1. A Glenis score greater than 3% is considered moderate risk. If this is the case, consider specialist referral to assess eligibility for a risk reducing agent. 2. If overall lifetime risk for the development of breast cancer is 20% or higher, the patient may qualify for future screening with alternating mammogram and breast MRI. Electronically signed and approved by: Farhat Pena M.D. [facility]
== END | disposition home or self-care (01) ==
LOC: RADMAMWWP 09:51
PROVIDERS: ATTEND Family Medicine
DX: Z12.31 Encounter for screening mammogram for malignant neoplasm of breast (principal); Z80.3 Family history of malignant neoplasm of breast; Z78.0 Asymptomatic menopausal state
CPT/HCPCS: 77063; 77067